=== PATIENT | male | born 1935 | race Caucasian/White ===

== ENCOUNTER → 2020-02-15 10:41 | Outpatient (BNVA) | payer OTHER, SELFPAY | PROVIDERS: Family Provider Family Medicine; Referring Provider Family Medicine; Visit Provider Specialist | DX: M19.012 Primary osteoarthritis, left shoulder (principal); M25.512 Pain in left shoulder | CPT/HCPCS: 73030 ==

== ENCOUNTER 2020-02-27 09:28 | Outpatient (RCR) | payer OTHER, SELFPAY | END 2020-03-09 23:59 | disposition home or self-care (01) | LOC: SPT 09:28 | PROVIDERS: PCP Family Medicine; Visit Provider Family Medicine | DX: M25.512 Pain in left shoulder (principal) | CPT/HCPCS: 97110; 97161 ==

== ENCOUNTER 2020-02-29 07:03 | Outpatient (CLI) | payer OTHER, SELFPAY ==
--- NOTE | 2020-02-29 07:11 | MR_ITS ---
WS: [id number] MRI LEFT SHOULDER NONCONTRAST TECHNIQUE: Sagittal T2, coronal T1, T2 and proton density imaging. Axial gradient PDE imaging. CLINICAL INFORMATION: LEFT SHOULDER PAIN COMPARISON: None. FINDINGS: Advanced degenerative arthritis AC joint with synovial thickening and edema. Loss of the subacromial space. Small subacromial/subdeltoid effusion. Full-thickness supraspinatus tear with retraction of th e tendon to the level of the glenohumeral joint. Edema within the supraspinatus muscle belly. High-gr alex tear involving the anterior infraspinatus. Dorsal fibers infraspinatus appear intact distally. Normal teres minor. Subscapularis tendon appears intact distally. Normal biceps tendon in the bicipit al groove. Physiologic fluid along the biceps tendon sheath. Normal biceps labral anchor. Degenerativ e fraying of the glenoid labrum which appears grossly intact. Moderate subcoracoid effusion. MR/MR shoulder LT wo con* [id number] IMPRESSION: 1. Advanced osteoarthritis of the AC joint with synovial thickening and subacr omial/subdeltoid fluid. 2. Mild downsloping of the acromion with complete loss of the subacromial spac e. 3. Full-thickness tear supraspinatus with retraction to the level of the gleno humeral joint. 4. High-grade tear involving the anterior aspect of the infraspinatus. Posteri or fibers appear intact distally. 5. Normal teres minor and subscapularis tendons 6. Normal biceps tendon in the bicipital groove. 7. Moderate subcoracoid effusion.
== END 2020-02-29 07:04 | disposition home or self-care (01) ==
LOC: RADSHAW 07:04
PROVIDERS: PCP Family Medicine; Visit Provider Family Medicine
DX: M19.012 Primary osteoarthritis, left shoulder (principal); M75.102 Unspecified rotator cuff tear or rupture of left shoulder, not specified as traumatic; M25.412 Effusion, left shoulder
CPT/HCPCS: 73221

== ENCOUNTER 2020-03-22 13:10 | Outpatient (RCR) | payer OTHER, SELFPAY | END 2020-04-08 23:59 | disposition home or self-care (01) | LOC: SPT 13:10 | PROVIDERS: PCP Family Medicine; Visit Provider Family Medicine | DX: M25.512 Pain in left shoulder (principal) | CPT/HCPCS: 97110 ==

== ENCOUNTER 2020-04-09 06:00 | Outpatient (RCR) | payer OTHER, SELFPAY | END 2020-04-29 23:00 | disposition home or self-care (01) | LOC: SPT 06:00 | PROVIDERS: PCP Family Medicine; Visit Provider Family Medicine | DX: M25.512 Pain in left shoulder (principal) | CPT/HCPCS: 97110 ==

== ENCOUNTER 2020-12-04 06:00 | Outpatient (RCR) | payer OTHER, SELFPAY | END 2020-12-07 23:59 | disposition home or self-care (01) | LOC: SPT 06:00 | PROVIDERS: PCP Family Medicine; Referring Provider Family Medicine; Visit Provider Family Medicine | DX: G20 Parkinson's disease (principal); R26.0 Ataxic gait | CPT/HCPCS: 97162 ==

== ENCOUNTER 2020-12-23 14:29 | Outpatient (CLI) | payer OTHER, SELFPAY ==
--- NOTE | 2020-12-23 15:00 | USCV_ITS ---
Jonathan Canales Age: 85 Gender: M : 1935 Exam Date: 12/23/2020 14:58 Ordering Phys: Eneida Parsons MD Technologist: Camilla Sawyer Exam Location: [facility] [place] Indication: vision disturbances, Risk Factors: Previous Vascular Surgery: None Right Brachial BP: / Left Brachial BP: / Right Left Velocity (cm/s) Spectral Plaque Velocity (cm/s) Spectral Plaque Syst/Diast Broadening Syst/Diast Broadening 94.80/ 15.40 Prox CCA 185.00/ 28.10 125.70/22.10 Mid CCA 76.00 / 11.10 88.20/ 16.50 Distal CCA 86.30 / 15.40 Hetro 56.20/ 14.30 Prox ICA 86.00 / 8.80 Hetro 70.60/ 18.70 Mid ICA 67.30 / 18.70 72.80/ 17.60 Distal ICA 70.60 / 19.30 137.80 ECA 88.90 0.58 ICA/CCA 0.46 Antegrade Vertebral Antegrade 40.10/ 12.00 cm/s 34.20/ 10.50 cm/s Tri Subclavian Tri 219.2 136.5 0 0 FINDINGS Mild to moderate dense irregular plaques at the left bifurcation and proximal internal carotid artery. Mild to moderate heterogeneous plaques at the right bifurcation and proximal internal carotid artery Intimal thickening in the common carotid arteries bilaterally. Antegrade flow in the vertebral arteries bilaterally. CONCLUSIONS Mild to moderate dense irregular plaques at the left bifurcation and proximal internal carotid artery with the Doppler features, suggesting less than 50% stenosis. Mild to moderate heterogeneous plaques at the right bifurcation and proximal internal carotid artery with the Doppler features, suggesting less than 50% stenosis. No similar previous studies are available for comparison Dr Daron Onofre MD [facility] (Electronically Signed) Final Date: 24 December 2020 18:10 S
== END 2020-12-23 14:30 | disposition home or self-care (01) ==
PROVIDERS: PCP Family Medicine; Visit Provider Family Medicine
DX: H53.9 Unspecified visual disturbance (principal); I65.23 Occlusion and stenosis of bilateral carotid arteries
CPT/HCPCS: 93880

== ENCOUNTER → 2021-01-15 09:25 | Outpatient (BNVA) | payer OTHER, SELFPAY | PROVIDERS: PCP Family Medicine; Referring Provider Internal Medicine Cardiovascular Disease; Visit Provider Internal Medicine Cardiovascular Disease | DX: R94.39 Abnormal result of other cardiovascular function study (principal); Z01.818 Encounter for other preprocedural examination; I25.9 Chronic ischemic heart disease, unspecified; I77.9 Disorder of arteries and arterioles, unspecified; Z20.822 Contact with and (suspected) exposure to COVID-19 | CPT/HCPCS: 80048; 85025; 85610; 87635 ==

== ENCOUNTER 2021-01-27 07:09 | Inpatient (IN) | payer OTHER, MEDICARE, SELFPAY ==
[2021-01-21] VITALS (18 sets, daily range): BP systolic 104–161; BP diastolic 55–126; PULSE 58–87; RESP 12–20; TEMP 36.5–36.6; O2SAT 92–97; BMI 24.7
[2021-01-21] MEDS: diphenhydrAMINE 50 mg Capsule PO (09:00)
--- NOTE | 2021-01-21 09:00 | XACV_ITS ---
Exam Room: 1 Ht: 175 cm Wt: 76 kg BSA: 1.93 m2 Gender: Male : 1935 Any Known Allergies: Latex Exam Priority: Routine Procedure(s): Procedure Description: Diagnostic procedure Procedure Description: Left Heart Catheterization Procedure Description: Left ventriculography Procedure Description: Coronary Angiography Diagnostic Cath Status: Elective Diagnostic Findings * Left Main: critical 95% stenosis, ISABELL: 3 flow. * Distal Left Anterior Descending: severe 90% stenosis, ISABELL: 3 flow. * Distal Left Anterior Descending: moderate 50% stenosis, ISABELL: 3 flow. * Distal Left Anterior Descending: moderate 50% stenosis, ISABELL: 3 flow. * Mid Right Coronary Artery: medium aneurysm. * Coronary angiography shows right dominance. Conclusions 1. Left main has distal hazy 90 to 95% stenosis which is eccentric. LAD has mid high-grade 90% stenosis, left circumflex does not have any significant stenosis, RCA had mid aneurysmal dilatation otherwise no significant stenosis.No Gradient across the Aortic Valve noted.. 2. There is critical coronary artery disease with two vessel disease. 3. The mid septum, apical septum, anterolateral reyna are hypokinetic. 4. The apex in the SPRING view is hypokinetic. 5. All other visualized reyna normal. 6. Normal left ventricular systolic function. Ejection fraction of 55%. Recommendations * 1-Return to [facility] for close monitoring 2-Usual Post cath care3-Statin with LDL goal of 70 mg/dl, aspirin 81 mg p.o. daily for life long 4-CT surgery consults for CABG5-Optimal medical management for MI6-Follow up with Dr. Austin in four weeks and establish care with primary care physician. Interventional RX Recommendation: none Diagnostic RX Recommendation: CABG LV EDP: 24 mmHg Ventriculography Ejection Fraction: 55.0 % Left Ventriculography Findings: * Normal left ventricle ejection fraction with mildly hypokinetic mid to distal and apical left ventricle wall. Pressures Phase:Rest AO : 131 / 70 ( 93 ) @ 10:09:00 AM 106 / 65 ( 87 ) @ 10:12:00 AM 112 / 74 ( 94 ) @ 10:14:00 AM 143 / 47 ( 86 ) @ 10:22:00 AM 142 / 73 ( 101 ) @ 10:23:00 AM LV : 155 / 3 / 24 @ 10:20:00 AM 149 / -1 / 22 @ 10:21:00 AM Clinical Evaluation EBL: 5mL-10mL Procedural Details Procedure Consent Obtained. Current Diagnosis : Chest Pain. Pre-Procedure Time Out. Identified patient by full name and date of as verbalized by the patient/guarantor. Does the consent match the physician's order: Yes. Accurate & Complete Informed Consent: Yes. Inpatient/Outpatient History & Physical on Chart: Yes. If H&P is completed, is and addenduem needed: No; If yes, is the addendum complete: N/A. Visualize and Verify Site with Patient/Guarantor: N/A. Relevant Radiology Images available: Yes. Pre-op teaching completed and patient verbalized understanding. The risks, benefits, and alternatives of sedation and/or procedure were discussed by physician. The patient agrees to continue. Procedure started. [facility] Clinical Fraility Score: 3: Managing Well. Regulatory Affairs Specialist Indications: Worsening Angina. Chest Pain Symptom Assessment: Typical Angina Symptoms. Correct patient, site and procedure confirmed by cath team. Current diagnosis: Chest Pain. PERRLA. Strong, equal hand bellows filler bilaterally. Lungs clear x 5 lobes. IV Site on Arrival: 20 gauge in the left anticubital. IV Fluids: 0.9% NaCl at KVO. 0 mL infused prior to cardiac cath lab manager. Pre Procedural Pulses: bilateral dorsalis pedis was 2+. Pre Procedural Pulses: left posterior tibial was Doppled. Pre Procedural Pulses: right posterior tibial was 1+. Pre Procedural Pulses: bilateral radial was 3+. Oxygen started at 2liters/min via nasal canula. right groin was prepped with chloroprep then draped in the usual sterile fashion. right radial was prepped with chloroprep then draped in the usual sterile fashion. Physician notified. Baseline sample Acquired. HR: 0 BPM. Physician arrived. Physician scrubbed in. Immediate Pre-Procedure Time Out. Correct Patient: Yes; Correct Procedure: Yes; Correct Site: Yes; Correct Patient Position: Yes; Correct Supplies: Yes; Dried Flammable Prep: Yes; Blood Products Available: N/A;. Lidocaine 1% infiltrated to the right radial. Arterial access obtained. A 5 comoran TIG catheter in over wire. Multiple views taken of left coronary artery. Catheter redirected to the RCA. Multiple views taken of right coronary artery. Dr. Monet called to review films. Catheter removed over the exchange wire. A 5 comoran Angled Pig catheter in over wire. EDP Sample taken: LV 155/3,24; HR: 67 BPM; SpO2: 96%. LV gram performed in SPRING @ 10 mL/second for a total of 30 mL. EDP Sample taken: LV 149/-2,22; HR: 73 BPM; SpO2: 97%. Pullback taken: LV Off; AO Off; Mean: , Peak to Peak: , SEP: ; HR: 74 BPM; SpO2: 96%. Catheter removed over the exchange wire. Physician scrubbed out. TR band placed. Hemostasis obtained. A TR Band was successful obtaining hemostatsis at the Right Radial artery insertion site. Post Procedure: Pulses reassessed and unchanged. PERRLA. Strong, equal hand bellows filler bilaterally. No VTE prophylaxis required. Post-op diagnosis: CAD. Complications: None. Estimated blood loss: 5mL-10mL. Procedure completed. Patient transferred by wheelchair to CPRU. Medication's Wasted: Lidocaine 1% = 18 mL. Medication's Wasted: Heparin = 1000 units. Medication's Wasted: Nitro = 49.8 mcg. Medication's Wasted: Other = Versed 1 mg. Medication's Wasted: Other = Fentanyl 50 mg. Total IV fluids: 47 mL. Contrast type used: Omnipaque 300 mg/mL, 150 mL bottle. Vital chart was stopped. Access Site Site: Right Radial artery Sheath Size: 6 Fr Hemostasis Method: TR Band Hemostasis Success: Successful Procedure Medications Start: 10:59 AM Stop: 10:59 AM Medication: Versed Amount: 1 mg Route: I.V. Start: 10:59 AM Stop: 10:59 AM Medication: Fentanyl Amount: 50 mcg Route: I.V. Start: 11:05 AM Stop: 11:05 AM Medication: Nitrogylcerin Amount: 200 mcg Route: I.A. Start: 11:09 AM Stop: 11:09 AM Medication: Heparin Amount: 5000 units Route: I.V. I, the attending physician, have reviewed and verified all procedure medications. Yes, all medications given per verbal order History/Risk Factors Hypertension: Yes Dyslipidemia: Yes Peripheral Arterial Disease (PAD): No Obesity: No Renal Disease: No Tobacco Use: Never Prior Interventions PCI: No CABG: No Valve Surgery: No Report Signatures Finalized by Lazaro Austin MD on 01/21/2021 12:10 PM
--- NOTE | 2021-01-21 10:44 | W.PM.OPSUD ---
Surgery/Procedure H&P Update DATE OF PROCEDURE: January 21, 2021 DATE H&P PERFORMED: 12/26/20 H&P UPDATE INFORMATION: I have reviewed H&P completed within last 30 days, I have examined patient prior to procedure and No changes to prior documentation PREOP DIAGNOSIS: Abnormal stress test worsening of chest pain PLANNED PROCEDURE: Operation Date: 01/21/21 10:00 Proposed Procedures p Cardiac Catheterization(Left) - Lazaro Austin MD PATIENT REASSESSED PRIOR TO SEDATION, WITH NO CHANGE NOTED: Yes PHYSICAL EXAM: alert, oriented x 3 and clear to auscultation bilaterally AIRWAY EVAL/ANESTHESIA PLAN: ASA II and Risks, benefits & alternatives of sedation and/or procedure discussed ADDITIONAL INFORMATION: All the risk benefit and alternative for the procedure including urgent emergent bypass stroke contrast-induced nephropathy hematoma cardiac tamponade were discussed with the patient. Patient would like to proceed with it. He is a candidate for DAPT
--- NOTE | 2021-01-21 11:54 | USCV_ITS ---
Jonathan Canales Age: 85 Gender: M : 1935 Exam Date: 01/21/2021 13:40 Ordering Phys: Lazaro Austin MD ([email or web address]) Technologist: Kitty Goode Exam Location: [facility] – [place] Indication: CAD BP: 136 / 73 HR: 60 Rhythm: Other Technical Quality: Adequate MEASUREMENTS (Male / Female) Normal Values 2D ECHO LV Diastolic Diameter PLAX 4.3 cm 4.2 - 5.9 / 3.9 - 5.3 cm LV Systolic Diameter PLAX 2.3 cm IVS Diastolic Thickness 1.5 cm 0.6 - 1.0 / 0.6 - 0.9 cm IVS Systolic Thickness 2.7 cm LVPW Diastolic Thickness 1.8 cm 0.6 - 1.0 / 0.6 - 0.9 cm LVPW Systolic Thickness 2.3 cm LVOT Diameter 2.0 cm LV Ejection Fraction 2D Teich 79.0 % LV Ejection Fraction MOD 2C 62.5 % LV Ejection Fraction 2C AL 62.5 % LA Diameter 3.1 cm LA Width 2.9 cm LA Height 4.0 cm RA Width 3.3 cm RA Height 4.6 cm Aorta at Sinotubular Diameter 2.8 cm M-MODE Aortic Annulus Diameter 3.0 cm LA Ao Ratio MM 1.0 MV E Point Septal Separation 1.4 cm DOPPLER AV Peak Velocity 99.0 cm/s LVOT Peak Velocity 69.0 cm/s AV Area Cont Eq vti 2.0 cm squared AV Area Cont Eq pk 2.2 cm squared MV Peak Velocity 130.0 cm/s MV Area PHT 5.0 cm squared Mitral E to A Ratio 0.4 MV E' Velocity 25.0 cm/s Mitral E to MV E' Ratio 8.9 Mitral E to LV E' Lateral Ratio 10.1 Mitral E to LV E' Septal Ratio 8.1 TR Peak Velocity 162.2 cm/s TR Peak Gradient 10.5 mmHg TR Mean Velocity 144.9 cm/s TR Mean Gradient 8.4 mmHg TR Velocity Time Integral 48.9 cm TV Peak E Velocity 29.0 cm/s Right Atrial Pressure 3.0 mmHg Pulmonary Artery Systolic Pressu 13.5 mmHg PV Peak Velocity 85.0 cm/s RV Acceleration Time 0.1 s RV Ejection Time 0.3 s RV AcT/ET 0.3 FINDINGS Left Ventricle Normal left ventricular cavity size. Normal left ventricular systolic function. No regional wall motion abnormalities. Left ventricular ejection fraction is estimated at 60 %. Grade I/IV diastolic dysfunction (abnormal relaxation filling pattern), normal to mildly elevated filling pressures. Right Ventricle The right ventricle is normal in size and function. Right Atrium The right atrium is normal in size. Left Atrium The left atrium is normal in size. Mitral Valve Mildly thickened mitral valve. No mitral valve stenosis. Mild mitral valve regurgitation. Aortic Valve Moderate aortic valve calcification. Aortic valve stenosis. Trace aortic valve regurgitation. Tricuspid Valve Trace tricuspid valve regurgitation. Pulmonic Valve Structurally normal pulmonic valve without significant stenosis. There is no pulmonic regurgitation. Pericardium Normal pericardium without effusion. Aorta Normal ascending aorta dimension. CONCLUSIONS 1-Normal left ventricular cavity size. Normal left ventricular systolic function. No regional wall motion abnormalities. Left ventricular ejection fraction is estimated at 60 %. Grade I/IV diastolic dysfunction (abnormal relaxation filling pattern), normal to mildly elevated filling pressures. 2-Mildly thickened mitral valve. No mitral valve stenosis. Mild mitral valve regurgitation. 3-Trace tricuspid valve regurgitation. 4-There is no pericardial effusion. 5-Pulmonary artery systolic pressure is within normal limits. 6-Right atrial pressure is around 5 mm of mercury. 7-There are no prior echocardiogram studies to compare. Lazaro Austin MD (Electronically Signed) Final Date: 21 January 2021 19:44 S
[2021-01-21] MEDS: isosorbide mononitrate ER 30 mg Tablet PO (15:38)
[2021-01-21] MEDS: docusate sodium 100 mg Capsule PO (15:38)
[2021-01-21] MEDS: aspirin 81 mg Chew Tablet PO (15:38)
[2021-01-21] MEDS: atorvastatin 40 mg Tablet 20 MG PO (20:05)
[2021-01-21] MEDS: trazodone 50 mg Tablet PO (20:05)
[2021-01-21] MEDS: carbidopa-levodopa 25-100mg Tablet 1 EACH PO (20:05)
[2021-01-21] MEDS: enoxaparin 40 mg/0.4 mL Syringe SUBCUT (21:24)
[2021-01-22] VITALS (56 sets, daily range): BP systolic 104–148; BP diastolic 55–79; PULSE 55–87; RESP 9–25; TEMP 36.6–36.8; O2SAT 93–97
[2021-01-22] MEDS: carbidopa-levodopa 25-100mg Tablet 2 EACH PO ×2 (04:15→13:18)
[2021-01-22 05:02] LABS: Basophils # 0.1 10^3/uL (0.0-0.1); Basophils % 0.8 %; Eosinophils # 0.2 10^3/uL (0.0-0.8); Eosinophils % 2.4 %; Hematocrit 39.8 % (42.0-52.0); Hemoglobin 13.4 g/dL (11.7-16.6); Lymphocytes # 1.4 10^3/uL (0.8-4.8); Lymphocytes % 18.2 %; Mean Corpuscular HGB Conc 33.7 g/dL (30.0-36.0); Mean Corpuscular Hemoglobin 32.2 pg (28.0-34.0); Mean Corpuscular Volume 95.7 fl (80-94); Mean Platelet Volume 10.5 fL (7.4-10.4); Monocytes # 0.7 10^3/uL (0.2-0.9); Monocytes % 9.3 %; Neutrophils # 5.13 10^3/uL (1.8-7.7); Neutrophils % 69.2 %; Nucleated Red Blood Cells % 0 %; Platelet Count 160 10^3/cmm (130-400); Red Blood Count 4.16 10^6/uL (4.1-5.3); Red Cell Distribution Width 12.1 % (12.1-15.1); White Blood Count 7.4 10^3/uL (4.0-10.0)
[2021-01-22 05:23] LABS: Anion Gap 15.2 (5-19); Blood Urea Nitrogen 23 mg/dL (8-23); Calcium 8.9 mg/dL (8.5-10.5); Carbon Dioxide 25 mmol/L (22-29); Chloride 103 mmol/L (98-107); Glucose 83 mg/dL (65-115); Osmolality Calculated 291 mOsm/kg (285-295); Potassium 4.2 mmol/L (3.5-5.1); Sodium 139 mmol/L (136-145)
--- NOTE | 2021-01-22 06:18 | PM.CONSULT ---
Providers/Reason For Consult Consulting Physician/Specialty*: Dr. Monet/cardiothoracic surgery Reason for Consult*: Left main coronary artery stenosis Requesting Physician: Dr. Austin Attending Physician: Lazaro Austin MD Primary Care Provider: Eneida Parsons MD History of Present Illness History of Present Illness Jonathan Canales is an 85 year old gentleman who underwent left heart catheterization yesterday as part of an evaluation for suspected coronary artery disease. He gives a 3-month history of right-sided and precordial chest discomfort with exertion which resolves with rest. He had noted this initially while performing yard work. He has denied pain at rest. He had a stress test performed at [facility] which was reported as abnormal. He saw Dr. Fierro on December 26 and after review of data and examination, I was concerned of coronary ischemia and recommended left heart catheterization. This was performed yesterday by Dr. Austin. This reveals a 90% mid left main stenosis as well as 90% stenosis of the mid LAD. 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 He has preserved LV function with noted diastolic dysfunction on echocardiogram. He had no difficulties with a left heart catheterization and currently is resting comfortably in the cardiac stepdown unit. I was consulted by Dr. Austin for surgical opinion concerning the results of his cardiac catheterization. Mr. Canales resides in [place] with his and daughter. Family history includes coronary artery disease in his daughter with prior coronary stenting. She also has diabetes mellitus. Reports allergies to penicillin and latex. Review of Systems Narrative: Left shoulder rotator cuff tear, evaluated by Dr. Hoyt. Currently receiving conservative management. Right knee surgery 50 years ago with intermittent pain. Const: Denies: fever(s), chills, change in appetite, change in weight, fatigue or night sweats Eyes: Denies: change in vision or blurry vision ENMT: Denies: odynophagia or hoarseness Card: Reports: chest pain (For approximately 3 to 4 months) and dyspnea on exertion; Denies: palpitations, irregular heart rhythm, edema, swelling of feet/ankles, syncope, orthopnea or leg pain with exertion Resp: Denies: dyspnea or productive cough GI: Denies: abdominal pain, nausea, vomiting, dysphagia, heartburn or change in bowel habits : Denies: difficulty urinating, dysuria, urinary frequency, urinary urgency or urinary hesitancy Musc: Reports: neck pain, extremity pain, joint pain, limited range of motion and other (Left shoulder rotator cuff tear currently with conservative treatment. ) Skin/Breast: Denies: rash Neuro: Denies: headache(s), numbness in extremities, weakness in extremities or sensory changes Psych: Denies: anxiety, depression or change in appetite Endo: Denies: polyuria, polydipsia or cold intolerance Daquan/Lymph: Denies: easy bruising, easy bleeding, petechiae or enlarged lymph nodes Meds/Allergies Home Medications and Allergies Home Medications Medication Instructions Recorded Confirmed Last Taken Type aspirin 81 mg chewable tablet 81 mg PO DAILY 02/15/20 01/20/21 01/20/21 05:00 History cholecalciferol (vitamin D3) 25 25 mcg PO DAILY 02/15/20 01/20/21 01/20/21 05:00 History mcg (1,000 unit) capsule trazodone 50 mg tablet 50 mg PO DAILY 02/15/20 01/20/21 01/20/21 20:00 History amlodipine 5 mg tablet 10 mg PO DAILY tab 12/26/20 01/20/21 01/21/21 06:00 History atorvastatin 10 mg tablet 10 mg PO DAILY #30 tab 12/26/20 01/20/21 01/20/21 05:00 Rx carbidopa 25 mg-levodopa 100 mg 1 tab PO .COMPLEX 12/26/20 01/20/21 01/21/21 06:00 History tablet docusate sodium 100 mg capsule 100 mg PO DAILY 12/26/20 01/20/21 01/20/21 05:00 History isosorbide mononitrate 30 mg 30 mg PO DAILY #30 tab 12/26/20 01/20/21 01/19/21 10:00 Rx tablet,extended release 24 hr [id number] acid 0.4 1 tab PO DAILY 12/26/20 01/20/21 01/20/21 05:00 History mg-lycopene 300 mcg-lutein 250 mcg tablet nitroglycerin 0.4 mg sublingual 0.4 mg SUBLINGUAL Q5M PRN #30 tab 12/26/20 01/20/21 Unknown Rx tablet Allergies Allergy/AdvReac Type Severity Reaction Status Date / Time latex Allergy Unknown unknown Verified 01/20/21 14:07 Penicillins Allergy Unknown unknown Verified 01/20/21 14:07 Current Medications Current Medications Generic Name Dose Route Start Last Admin Trade Name Nita PRN Reason Stop Dose Admin Aspirin 81 mg 01/21/21 14:00 01/21/21 15:38 Aspirin 81 Mg Chew Tablet PO 81 mg DAILY BENNIE Administration Atorvastatin Calcium 20 mg 01/21/21 21:00 01/21/21 20:05 Atorvastatin 40 Mg Tablet PO 20 mg BEDTIME BENNIE Administration Carbidopa/Levodopa 2 each 01/22/21 06:00 01/22/21 04:15 Carbidopa-Levodopa 25-100mg Tablet PO 2 each QAM BENNIE Administration Carbidopa/Levodopa 1 each 01/21/21 21:00 01/21/21 20:05 Carbidopa-Levodopa 25-100mg Tablet PO 1 each BEDTIME BENNIE Administration Docusate Sodium 100 mg 01/21/21 14:00 01/21/21 15:38 Docusate Sodium 100 Mg Capsule PO 100 mg DAILY BENNIE Administration Enoxaparin Sodium 40 mg 01/21/21 21:30 01/21/21 21:24 Enoxaparin 40 Mg/0.4 Ml Syringe SUBCUT 40 mg ONCE BENNIE Administration Isosorbide Mononitrate 30 mg 01/21/21 14:00 01/21/21 15:38 Isosorbide Mononitrate Er 30 Mg Tablet PO 30 mg DAILY BENNIE Administration Trazodone HCl 50 mg 01/21/21 21:00 01/21/21 20:05 Trazodone 50 Mg Tablet PO 50 mg BEDTIME BENNIE Administration PFSH Acute PFSH: Medical History Carotid artery disease Dyslipidemia Hypertension Parkinsons Surgical History History of hernia surgery History of knee surgery History of surgery on wrist Social History Smoking and tobacco status: never smoked Household members: spouse and children Marital status: Vitals/I&O/Wt Last Vital Signs Temp 97.7 F 01/21/21 23:47 Pulse 63 01/22/21 04:00 Resp 17 01/22/21 04:00 BP 124/79 01/22/21 04:00 Pulse Ox 94 01/22/21 04:00 01/21/21 01/21/21 01/22/21 14:59 22:59 06:59 Intake Total 400 / 400 Output Total 650 / 650 200 / 850 Balance -650 / -650 200 / -450 Weight last 48 hrs Weight 168 lb Weight 168 lb Physical Exam Const: COMMON NORMALS: patient oriented x3 and alert ORIENTATION/CONSCIOUSNESS: Yes oriented to person, Yes oriented to place and Yes oriented to time HENMT: COMMON NORMALS: normocephalic HEAD & SCALP: normocephalic Neck/C-Spine: COMMON NORMALS: full ROM, supple, no JVD and No carotid bruits GENERAL: Yes trachea midline CERVICAL SPINE: Yes cervical ROM normal Chest: COMMONS NORMALS: normal inspection of the chest and normal palpation of entire chest wall Resp: COMMON NORMALS: normal respiratory effort, No use of accessory muscles, clear to auscultation bilaterally and percussion normal EFFORT & INSPECTION: Yes able to speak in complete sentences and Yes symmetric chest movement AUSCULTATION: clear to auscultation bilaterally PERCUSSION: percussion normal Cardio: COMMON NORMALS: no JVD, regular rate, regular rhythm, S1 normal heart sound present, S2 normal heart sound present, No gallops present (Cardio), No murmurs present (Cardio) and No rub (Cardio) JUGULAR VENOUS DISTENTION: no JVD RATE: regular rate RHYTHM: regular rhythm HEART SOUNDS: S1 normal heart sound present and S2 normal heart sound present PERIPHERAL PULSES: radial pulses present positive bilateral 2+ Extremity: COMMON NORMALS: no clubbing, cyanosis or edema Neuro: COMMON NORMALS: patient oriented x3, no focal motor deficits and no sensory deficits noted SENSORIUM/ORIENTATION: Yes alert, Yes oriented to person, Yes oriented to place and Yes oriented to time GAIT: Yes Normal gait present Psych: COMMON NORMALS: mental status grossly normal, Normal thought process present and cooperative THOUGHT PROCESS: Normal thought process present A&P Assessment and plan (1) Stenosis of left main coronary artery: 85-year-old gentleman status post left heart catheterization yesterday by Dr. Austin for high index of suspicion for coronary artery disease with positive stress testing performed in [place], [place]. Left heart catheterization revealed 90% left main stenosis and 90% mid LAD lesion. Preserved LV systolic function with diastolic dysfunction. I have reviewed with Mr. Canales this morning the findings of his left heart catheterization and utilized our written patient teaching materials to discuss his anatomy and consideration for revascularization: Surgery versus interventional therapies. He appears to have a good understanding of his disease process and our recommendations for consideration. At his request, I will be returning around 12 noon to discuss further with him along with his and daughter who should be present at that time. Currently he is resting comfortably and remains pain-free. I will discuss further with him and his family at midday. I will keep a close contact with Dr. Austin as we proceed. Status: Acute Consult Attestations Medical Necessity Statement: Coronary artery disease with left main coronary artery stenosis. Time Spent in Patient Care: Greater than 35 minutes Coding Level of Care Code Acute [employer] for Maria M Bonilla Diagnoses Stenosis of left main coronary artery I25.10
--- NOTE | 2021-01-22 06:29 | PC.NURSE ---
Shift Note Frequent safety and comfort rounds continue. Orders and/or nursing care completed as indicated. Patient monitored for response to intervention and treatment(s). Will continue to monitor.
[2021-01-22] MEDS: cholecalciferol (vitamin D3) 1,000 unit Tablet 1000 UNIT PO (09:17)
[2021-01-22] MEDS: aspirin 81 mg Chew Tablet PO (09:17)
[2021-01-22] MEDS: amlodipine 10 mg Tablet PO (09:17)
[2021-01-22] MEDS: enoxaparin 40 mg/0.4 mL Syringe SUBCUT ×2 (09:17→18:14)
[2021-01-22] MEDS: isosorbide mononitrate ER 30 mg Tablet PO (09:17)
[2021-01-22] MEDS: docusate sodium 100 mg Capsule PO (09:17)
--- NOTE | 2021-01-22 09:17 | PC.CHAP ---
Pastoral Care Encounter/Spiritual Assessment Type of Contact [] Declined tray casting machine operator visit [] Patient/Family/Request visit [] Outpatient visit [] Follow-up visit [] Physician referral [] Code/Alert [x] Routine visit [] Staff referral [] Actively dying [] Patient sleeping [] Family support [] [] Out of room [] Palliative care [] [] Receiving care in room [] Pre-surgical visit [] Trauma [] Long length of stay [] ICU visit [] Other: Relational/Emotional Strength [] Patient feels connected with others/family/visitors/staff [] Distress [] Loneliness/isolation [] Abandonment Spirituality of Patient [] Person of Christel [] Attends Spiritism of their Christel [] Believes in Prayer [] Reads Bible or Congregational materials [] There are Spiritual issues to be addressed Produce Weigher Interventions [x] Prayer [x] Active listening [x] Non-anxious presence [x] Spiritual/emotional support [] Crisis/trauma care [] Spiritual counseling [] Bereavement support [] Provided bereavement packet [] Provided Bible/devotional materials [] Provided toy/stuffed animal, coloring book to patient or family member [] Provided Communion [] Anointing/[place] [] Salvation [x] Completed spiritual assessment [] Other: Impact on Illness or Injury [] Angry [] Fearful [] Anxious [] Often cries [] Exhaustion [] Unable to work [] Unable to attend latter day [] Unable to walk/stand [] Unable to read [] Unable to drive [] Unable to eat/drink [] Unable to sleep [] Unable to be with family [] Patient intubated [] Other: Summary patient feeling better today... but cold.. advised nurse to address room temp... Time spent with patient 10 min
--- NOTE | 2021-01-22 11:09 | P.HP_ITS ---
Providers/Chief Complaint Primary Care Provider: Eneida Parsons MD Chief Complaint: [id number] History of Present Illness Jonathan Canales is a 85 year old male past medical history significant for hypertension hyperlipidemia parkinsonism for worsening of chest pain shortness of breath and abnormal stress test underwent left heart cath he was noted to have significant distal left main disease along with distal LAD disease. Coronary artery bypass surgery was recommended. Today he was visited by Dr. Monet. Dr. Monet will be leaving out of town for a meeting which was already scheduled for tomorrow morning. Dr. Monet has indicated that upon his return early next week perhaps on Wednesday he may can be scheduled for coronary artery bypass surgery. I had detailed discussion with the patient and his by bedside. Patient would like to perform surgery here while his is ambivalent as she think that it may need to be done earlier. I have given patient options to be transferred to the other hospitals such as [facility] or wherever he chooses to go. He would like to think about it and will let us know. Review of Systems Narrative: Left shoulder rotator cuff tear, evaluated by Dr. Hoyt. Currently receiving conservative management. Right knee surgery 50 years ago with intermittent pain. Const: Denies: fever(s), chills, change in appetite, change in weight, fatigue or night sweats Eyes: Denies: change in vision or blurry vision ENMT: Denies: odynophagia or hoarseness Card: Reports: chest pain (For approximately 3 to 4 months) and dyspnea on exertion; Denies: palpitations, irregular heart rhythm, edema, swelling of feet/ankles, syncope, orthopnea or leg pain with exertion Resp: Denies: dyspnea or productive cough GI: Denies: abdominal pain, nausea, vomiting, dysphagia, heartburn or change in bowel habits : Denies: difficulty urinating, dysuria, urinary frequency, urinary urgency or urinary hesitancy Musc: Reports: neck pain, extremity pain, joint pain, limited range of motion and other (Left shoulder rotator cuff tear currently with conservative treatment. ) Skin/Breast: Denies: rash Neuro: Denies: headache(s), numbness in extremities, weakness in extremities or sensory changes Psych: Denies: anxiety, depression or change in appetite Endo: Denies: polyuria, polydipsia or cold intolerance Daquan/Lymph: Denies: easy bruising, easy bleeding, petechiae or enlarged lymph nodes Medications/Allergies Home Medications Medication Instructions Recorded Confirmed Last Taken Type aspirin 81 mg chewable tablet 81 mg PO DAILY 02/15/20 01/20/21 01/20/21 05:00 History cholecalciferol (vitamin D3) 25 25 mcg PO DAILY 02/15/20 01/20/21 01/20/21 05:00 History mcg (1,000 unit) capsule trazodone 50 mg tablet 50 mg PO DAILY 02/15/20 01/20/21 01/20/21 20:00 History amlodipine 5 mg tablet 10 mg PO DAILY tab 12/26/20 01/20/21 01/21/21 06:00 History atorvastatin 10 mg tablet 10 mg PO DAILY #30 tab 12/26/20 01/20/21 01/20/21 05:00 Rx carbidopa 25 mg-levodopa 100 mg 1 tab PO .COMPLEX 12/26/20 01/20/21 01/21/21 06:00 History tablet docusate sodium 100 mg capsule 100 mg PO DAILY 12/26/20 01/20/21 01/20/21 05:00 History isosorbide mononitrate 30 mg 30 mg PO DAILY #30 tab 12/26/20 01/20/21 01/19/21 10:00 Rx tablet,extended release 24 hr htfpqtni-ldk-ezcyp acid 0.4 1 tab PO DAILY 12/26/20 01/20/21 01/20/21 05:00 History mg-lycopene 300 mcg-lutein 250 mcg tablet nitroglycerin 0.4 mg sublingual 0.4 mg SUBLINGUAL Q5M PRN #30 tab 12/26/20 01/20/21 Unknown Rx tablet Allergies Allergy/AdvReac Type Severity Reaction Status Date / Time latex Allergy Unknown unknown Verified 01/20/21 14:07 Penicillins Allergy Unknown unknown Verified 01/20/21 14:07 PFSH Acute PFSH: Medical History Carotid artery disease Dyslipidemia Hypertension Parkinsons Surgical History History of hernia surgery History of knee surgery History of surgery on wrist Social History Smoking and tobacco status: never smoked Household members: spouse and children Marital status: Vitals/I&O/Wt Last Vital Signs Temp 97.8 F 01/22/21 08:00 Pulse 68 01/22/21 08:00 Resp 18 01/22/21 08:00 BP 145/73 01/22/21 08:00 Pulse Ox 93 01/22/21 08:00 01/21/21 01/22/21 01/22/21 22:59 06:59 14:59 Intake Total 400 / 400 Output Total 650 / 650 375 / 1025 Balance -650 / -650 25 / -625 Weight last 48 hrs Weight 168 lb Weight 168 lb Physical Exam Narrative: EXAM NARRATIVE: GENERAL: Patient is alert, awake and oriented x3. NECK: No jugular vein distension. HEENT: No cyanosis. No icterus. No pallor. HEART: Regular S1 and S2. No murmur, rub or gallop. LUNGS: Clear to auscultate bilaterally. ABDOMEN: Soft, nontender and nondistended. Positive bowel sounds. No guarding, rebound or tenderness. CENTRAL NERVOUS SYSTEM: Grossly nonfocal. EXTREMITIES: Lower extremities without edema bilaterally. Const: COMMON NORMALS: alert Resp: COMMON NORMALS: clear to auscultation bilaterally AUSCULTATION: clear to auscultation bilaterally Neuro: SENSORIUM/ORIENTATION: Yes alert Data : 01/22/21 04:22 01/22/21 04:22 A&P Assessment and plan (1) Stenosis of left main coronary artery: As above patient has significant left main stenosis and distal LAD significant stenosis requiring CABG. Continue current medical management. Patient and family will make decision today regarding CABG to be performed here or outside. We will go according to their wishes. At the moment he is stable. Continue current regimen Status: Acute (2) Dyslipidemia: Continue statin. Status: Acute (3) Hypertension: Well-controlled continue current regimen Status: Acute Qualifiers: Hypertension type: essential hypertension Qualified Code(s): I10 - Essential (primary) hypertension Attestations Medical Necessity Statement*: Patient require continuation hospitalization for above defined care. Coding Level of Care Code New Pt Acute Marine Tower Operator for [facility] Fwd Patient Type New History Detailed Exam Detailed Medical Decision Making Moderate Complexity Diagnoses Stenosis of left main coronary artery I25.10 Dyslipidemia E78.5 Hypertension I10 Hypertension type: essential hypertension
--- NOTE | 2021-01-22 17:37 | P.PN_ITS ---
Subjective Subjective: Interval history: I spoke with Mr. Canales and his at noon concerning the findings of his left heart catheterization and the recommendation to consider revascularization related to his high-grade left main coronary artery stenosis. I also informed him that I would be off of service for the next 2 days and not available until Wednesday. It is my understanding that he has met with Dr. Austin and wishes to stay locally for revascularization surgically next January 27. I have conferred personally with my colleague Dr. Austin. I stated my apologies for the needed delay in my absence and completely concur if it is felt prudent Mr. Canales seek surgical care elsewhere. It is understanding for Mr. Canales and his that they wish to remain locally if possible. Vitals/I&O/Wt Last Vital Signs Temp 98.3 F 01/22/21 16:00 Pulse 66 01/22/21 16:00 Resp 18 01/22/21 16:00 BP 117/55 01/22/21 16:00 Pulse Ox 96 01/22/21 16:00 01/22/21 01/22/21 01/22/21 06:59 14:59 22:59 Intake Total 400 / 400 Output Total 375 / 1025 Balance 25 / -625 Weight last 48 hrs Weight 168 lb Weight 168 lb Physical Exam Resp: COMMON NORMALS: normal respiratory effort, No use of accessory muscles, clear to auscultation bilaterally and percussion normal AUSCULTATION: clear to auscultation bilaterally PERCUSSION: percussion normal Cardio: COMMON NORMALS: regular rate, regular rhythm and S1 normal heart sound present JUGULAR VENOUS DISTENTION: no JVD RATE: regular rate RHYTHM: regular rhythm HEART SOUNDS: S1 normal heart sound present Extremity: COMMON NORMALS: no clubbing, cyanosis or edema Data : 01/22/21 04:22 01/22/21 04:22 A&P Assessment and plan (1) Stenosis of left main coronary artery: At the request of Mr. Canales, and the condition they remain stable without chest pain, we will proceed with preoperative evaluation in preparation for planned CABG on January 27. Details and risks of CABG were carefully and frankly reviewed. Risks discussed include the possibility of , stroke, heart attack, major bleeding possibly requiring the need to reopen chest, infection, pneumonia, organ failure, failure to benefit, early closure of the bypass grafts, inability to complete the procedure, prolonged hospitalization, blood clots to lungs or other organs, need for further interventions, continued pain after surgery, need for future guanako leonides, and possible long-term bleeding risk secondary to medication requirements. All questions were answered. Mr. Canales and his stated understanding. I greatly appreciate Dr. Austin's director counseling bureau and will keep in close contact with him. Status: Acute Attestations Medical Necessity Statement*: High-grade left main and mid LAD coronary artery stenosis Time Spent in Patient Care: 16 - 35 minutes Coding Level of Care Code Acute Sr. Logistics Analyst for [facility] Fwd Diagnoses Stenosis of left main coronary artery I25.10
[2021-01-22] MEDS: mupirocin oint 22 gm 1 APPLIC NASAL (18:12)
--- NOTE | 2021-01-22 19:46 | PC.NURSE ---
PER VERBAL ORDER FROM DR. MENDOZA, ALL LABS ARE TO BE DONE 01/26/21 PRIOR TO CABG SURGERY ON 01/27/21. HOLD LOVENOX AFTER 1800 DOSE ON WEDNESDAY ON 01/25/21.
[2021-01-22] MEDS: carbidopa-levodopa 25-100mg Tablet 1 EACH PO (21:18)
[2021-01-22] MEDS: trazodone 50 mg Tablet PO (21:18)
[2021-01-22] MEDS: atorvastatin 40 mg Tablet 20 MG PO (21:19)
[2021-01-22] MEDS: nitroglycerin 0.4 mg sublingual Tablet SUBLINGUAL (22:11)
[2021-01-23] VITALS (10 sets, daily range): BP systolic 124–143; BP diastolic 64–92; PULSE 61–80; RESP 16–18; TEMP 36.5–36.7; O2SAT 91–98
--- NOTE | 2021-01-23 | USCV_ITS ---
LE Arterial Duplex LEFT Jonathan Canales Age: 85 Gender: M : 1935 Exam Date: 01/23/2021 06:40 Ordering Phys: Kobi Monet MD (Andy) ([email or web address]) Technologist: [place] [facility] [place]ication: PRE OP RIGHT LEFT LOWER EXTREMITY Diameter Diameter (cm) (cm) High Thigh 0.50 Mid Thigh 0.33 Above Knee 0.42 Below Knee 0.21 Mid Calf 0.29 Ankle 0.22 RIGHT LEFT Findings RT GREAT SAPH REMOVED LT GSAPH IS GOOD The greater saphenous vein segments on the left lower extremity were found to be patent Conclusions 1. Patent greater saphenous vein segments on the left side with normal dimensions 2. Venous dimensions as mentioned above Dr Daron Onofre MD [facility] (Electronically Signed) Final Date: 23 January 2021 23:24 S
[2021-01-23] MEDS: chlorhexidine gluconate 0.12% Btl 473 mL 15 ML MUCOUS MEM ×3 (02:32→17:05)
[2021-01-23] MEDS: carbidopa-levodopa 25-100mg Tablet 2 EACH PO ×3 (05:14→11:37)
--- NOTE | 2021-01-23 06:47 | PM.MISC ---
Miscellaneous Note Purpose of Documentation: Mr. Canales was not at bedside during my rounds this morning. He is currently over in the radiology department. He also scheduled for his vein mapping today. Nurses report that he had a good night but did have 1 brief episode of chest discomfort around 930 which he received 1 nitroglycerin and had no further discomfort. We will proceed with our current plans to consider CABG for early WednesdayJanuary 27, as I will be out of town the next couple of days. Of course, at the discretion of Dr. Courtney, if he feels it warranted, would certainly consider transfer if more expeditious option for surgical revascularization is required. I did discuss this at length with Mr. Canales and his yesterday, and it was their desire, if possible, to remain locally as travel was felt to be a challenge. I greatly appreciate Dr. Austin's understanding, expertise, and assistance.
--- NOTE | 2021-01-23 08:00 | XR_ITS ---
WS: [id number] XR chest 2V* [id number] REASON FOR EXAM: Preop for CABG FINDINGS: Moderate tortuosity and ectasia of the thoracic aorta without focal aneurysmal dilatation. Normal heart size. Calcified granulomatous disease in both hemithoraces. No active pulmonary parenchymal or pleural dise ase in the right lung. In the left lung there are some linear opacities representing fibrotic scarrin g or atelectasis. No acute pulmonary parenchymal or pleural abnormality. Moderate degenerative spondylosis in the mid and lower thoracic spine. XR/XR chest 2V* [id number] IMPRESSION: No acute chest abnormality.
[2021-01-23] MEDS: aspirin 81 mg Chew Tablet PO (08:07)
[2021-01-23] MEDS: docusate sodium 100 mg Capsule PO (08:07)
[2021-01-23] MEDS: cholecalciferol (vitamin D3) 1,000 unit Tablet 1000 UNIT PO (08:07)
[2021-01-23] MEDS: isosorbide mononitrate ER 30 mg Tablet PO (08:07)
[2021-01-23] MEDS: amlodipine 10 mg Tablet PO (08:07)
[2021-01-23] MEDS: mupirocin oint 22 gm 1 APPLIC NASAL ×2 (08:07→17:04)
[2021-01-23] MEDS: enoxaparin 40 mg/0.4 mL Syringe SUBCUT ×2 (08:07→17:04)
--- NOTE | 2021-01-23 10:29 | PC.CHAP ---
Pastoral Care Encounter/Spiritual Assessment Type of Contact [] Declined animal care technician visit [] Patient/Family/Request visit [] Outpatient visit [] Follow-up visit [] Physician referral [] Code/Alert [x] Routine visit [] Staff referral [] Actively dying [] Patient sleeping [] Family support [] [] Out of room [] Palliative care [] [x] Receiving care in room [] Pre-surgical visit [] Trauma [] Long length of stay [] ICU visit [] Other: Relational/Emotional Strength [x] Patient feels connected with others/family/visitors/staff [] Distress [] Loneliness/isolation [] Abandonment Spirituality of Patient [x] Person of Christel [] Attends Taoism of their Christel [x] Believes in Prayer [] Reads Bible or Presybeterian materials [] There are Spiritual issues to be addressed Block Press Operator Interventions [x] Prayer [x] Active listening [x] Non-anxious presence [x] Spiritual/emotional support [] Crisis/trauma care [x] Spiritual counseling [] Bereavement support [] Provided bereavement packet [] Provided Bible/devotional materials [] Provided toy/stuffed animal, coloring book to patient or family member [] Provided Communion [] Anointing/[place] [] Salvation [x] Completed spiritual assessment [] Other: Impact on Illness or Injury [] Angry [] Fearful [] Anxious [] Often cries [] Exhaustion [] Unable to work [] Unable to attend restoration [] Unable to walk/stand [] Unable to read [] Unable to drive [] Unable to eat/drink [] Unable to sleep [] Unable to be with family [] Patient intubated [] Other: Summary senior, feels good has a good attitude is going home today Time spent with patient 10 mins
--- NOTE | 2021-01-23 19:57 | P.PN_ITS ---
Subjective Subjective: Interval history: 1 episode of chest pain patient surgery scheduled for Wednesday and will then he will stay in the hospital. Medications: Reviewed: Yes Vitals/I&O/Wt Last Vital Signs Temp 98.0 F 01/23/21 16:00 Pulse 70 01/23/21 16:00 Resp 18 01/23/21 16:00 BP 128/80 01/23/21 16:00 Pulse Ox 98 01/23/21 16:00 01/23/21 01/23/21 01/23/21 06:59 14:59 22:59 Intake Total 100 / 100 480 / 480 240 / 720 Output Total 600 / 1250 250 / 250 Balance -500 / -1150 230 / 230 240 / 470 Physical Exam Narrative: EXAM NARRATIVE: GENERAL: Patient is alert, awake and oriented x3. NECK: No jugular vein distension. HEENT: No cyanosis. No icterus. No pallor. HEART: Regular S1 and S2. No murmur, rub or gallop. LUNGS: Clear to auscultate bilaterally. ABDOMEN: Soft, nontender and nondistended. Positive bowel sounds. No guarding, rebound or tenderness. CENTRAL NERVOUS SYSTEM: Grossly nonfocal. EXTREMITIES: Lower extremities without edema bilaterally. Const: COMMON NORMALS: alert Resp: COMMON NORMALS: clear to auscultation bilaterally AUSCULTATION: clear to auscultation bilaterally Neuro: SENSORIUM/ORIENTATION: Yes alert Data : 01/22/21 04:22 01/22/21 04:22 A&P Assessment and plan (1) Stenosis of left main coronary artery: Continue current regimen patient on Wednesday. Continue on long-acting nitroglycerin. Beta-ayaz aspirin statin Status: Acute (2) Dyslipidemia: Continue statin. Status: Acute (3) Hypertension: Well-controlled continue current regimen Status: Acute Qualifiers: Hypertension type: essential hypertension Qualified Code(s): I10 - Essential (primary) hypertension Attestations Medical Necessity Statement*: Require continuation hospitalization for above event Coding Level of Care Code Established Pt Acute Curator Of Manuscripts for [facility] Fwd Patient Type Established History Detailed Exam Detailed Medical Decision Making Moderate Complexity Diagnoses Stenosis of left main coronary artery I25.10 Dyslipidemia E78.5 Hypertension I10 Hypertension type: essential hypertension
[2021-01-23] MEDS: atorvastatin 40 mg Tablet 20 MG PO (20:56)
[2021-01-23] MEDS: carbidopa-levodopa 25-100mg Tablet 1 EACH PO (20:57)
[2021-01-23] MEDS: trazodone 50 mg Tablet PO (20:57)
[2021-01-24] VITALS (12 sets, daily range): BP systolic 113–149; BP diastolic 63–81; PULSE 61–83; RESP 18–24; TEMP 36.2–36.8; O2SAT 91–97
[2021-01-24] MEDS: cholecalciferol (vitamin D3) 1,000 unit Tablet 1000 UNIT PO (08:20)
[2021-01-24] MEDS: enoxaparin 40 mg/0.4 mL Syringe SUBCUT ×2 (08:20→18:08)
[2021-01-24] MEDS: isosorbide mononitrate ER 30 mg Tablet PO (08:21)
[2021-01-24] MEDS: aspirin 81 mg Chew Tablet PO (08:21)
[2021-01-24] MEDS: docusate sodium 100 mg Capsule PO (08:21)
[2021-01-24] MEDS: amlodipine 10 mg Tablet PO (08:21)
[2021-01-24] MEDS: chlorhexidine gluconate 0.12% Btl 473 mL 15 ML MUCOUS MEM ×2 (08:22→18:07)
[2021-01-24] MEDS: mupirocin oint 22 gm 1 APPLIC NASAL ×2 (08:22→18:07)
--- NOTE | 2021-01-24 10:38 | ANES.PREANE2 ---
Pre-Anesthetic Assessment Pre-Anesthetic Assessment: Height/Weight: Height 1.75 m Weight 76.204 kg Temp Pulse Resp BP Pulse Ox 98.1 F 83 24 H 120/75 96 01/24/21 08:00 01/24/21 08:00 01/24/21 08:00 01/24/21 08:00 01/24/21 08:00 Preop Diagnosis: Left main coronary artery stenosis Proposed Procedure: Operation Date: 01/21/21 10:00 Proposed Procedures p Cardiac Catheterization(Left) - Lazaro Austin MD Operation Date: 01/27/21 07:00 Proposed Procedures p CABG(Not Applicable) - Kobi Monet MD Was Beta Serg taken within 24 hours: N/A Was Clonidine taken within 24 hours: N/A Social: Social History: No alcohol and No tobacco Exam: Pre-Anes Outpt Exam: alert, oriented x 3, clear to auscultation bilaterally and regular rate & rhythm Airway: Submandibular: WNL Cervical ROM: WNL MP: 2 Dentition: Full CV/HEM: CV/HEM: CAD (Left main dz), CHF (diastolic dysfsn) and HTN Comments: EF 55% : : Chronic renal Insufficiency (Cr 1.1) Musc/skel: Musc/skel: OA/DJD Comments: Parkinson's Anesthetic Plan: ASA status: 4 Anesthesia: General Other: CVL/PAC, A.line, RUFINO Risk of > 500 ml blood loss (7ml/kg in children): Yes, adequate IV access and fluids planned Meds/Allergies Current Medications: Current Medications Generic Name Dose Route Start Last Admin Trade Name Coreyq PRN Reason Stop Dose Admin Amlodipine Besylat e 10 mg 01/22/21 09:00 01/24/21 08:21 Amlodipine 10 Mg Tablet PO 10 mg DAILY BENNIE Administration Aspirin 81 mg 01/21/21 14:00 01/24/21 08:21 Aspirin 81 Mg Ch ew Tablet PO 81 mg DAILY BENNIE Administration Atorvastatin Calci um 20 mg 01/21/21 21:00 01/23/21 20:56 Atorvastatin 40 Mg Tablet PO 20 mg BEDTIME BENNIE Administration Carbidopa/Levodopa 2 each 01/22/21 06:00 01/23/21 11:35 Carbidopa-Levodo pa 25-100mg Tablet PO 2 each QAM BENNIE Administration Carbidopa/Levodopa 2 each 01/22/21 12:00 01/23/21 11:37 Carbidopa-Levodo pa 25-100mg Tablet PO 2 each 1200 BENNIE Administration Carbidopa/Levodopa 1 each 01/21/21 21:00 01/23/21 20:57 Carbidopa-Levodo pa 25-100mg Tablet PO 1 each BEDTIME BENNIE Administration Chlorhexidine Gluc barbie 15 ml 01/22/21 18:00 01/24/21 08:22 Chlorhexidine Gl uconate 0.12% Btl 473 Ml MUCOUS MEM 15 ml BID BENNIE Administration Docusate Sodium 100 mg 01/21/21 14:00 01/24/21 08:21 Docusate Sodium 100 Mg Capsule PO 100 mg DAILY BENNIE Administration Enoxaparin Sodium 40 mg 01/22/21 09:00 01/24/21 08:20 Enoxaparin 40 Mg /0.4 Ml Syringe SUBCUT 40 mg BID BENNIE Administration Isosorbide Mononit rate 30 mg 01/21/21 14:00 01/24/21 08:21 Isosorbide [place] itrate Er 30 Mg Ta blet PO 30 mg DAILY BENNIE Administration Mupirocin 1 applic 01/22/21 18:00 01/24/21 08:22 Mupirocin Oint 2 2 Gm NASAL 1 applic BID BENNIE Administration Nitroglycerin 0.4 mg 01/21/21 11:49 01/22/21 22:11 Nitroglycerin 0. 4 Mg Sublingual Ta blet SUBLINGUAL 0.4 mg Q5M PRN Administration chest pain Trazodone HCl 50 mg 01/21/21 21:00 01/23/21 20:57 Trazodone 50 Mg Tablet PO 50 mg BEDTIME BENNIE Administration Vitamin D 1,000 unit 01/22/21 09:00 01/24/21 08:20 Cholecalciferol (Vitamin D3) 1,000 Unit Tablet PO 1,000 unit DAILY BENNIE Administration PFSH Anesthesia PFSH: Medical History Carotid artery disease Dyslipidemia Hypertension Parkinsons Surgical History History of hernia surgery History of knee surgery History of surgery on wrist Social History Smoking and tobacco status: never smoked Household members: spouse and children Marital status: Data Anesthesia CBC & Chem 7: 01/22/21 04:22 01/22/21 04:22 Cardiac Studies: Echocardiogram 01/21/21
[2021-01-24] MEDS: carbidopa-levodopa 25-100mg Tablet 2 EACH PO (12:33)
--- NOTE | 2021-01-24 15:04 | PC.CHAP ---
Pastoral Care Encounter/Spiritual Assessment Type of Contact [] Declined funeral pre arrangement specialist visit [] Patient/Family/Request visit [] Outpatient visit [] Follow-up visit [] Physician referral [] Code/Alert [xx] Routine visit [] Staff referral [] Actively dying [] Patient sleeping [] Family support [] [] Out of room [] Palliative care [] [] Receiving care in room [] Pre-surgical visit [] Trauma [] Long length of stay [] ICU visit [] Other: Relational/Emotional Strength [xx] Patient feels connected with others/family/visitors/staff [] Distress [] Loneliness/isolation [] Abandonment Spirituality of Patient [xx] Person of Christel [] Attends Temple of their Christel [xx] Believes in Prayer [xx] Reads Bible or Confucianism materials [] There are Spiritual issues to be addressed [employer] Manager Interventions [xx] Prayer [xx] Active listening [xx] Non-anxious presence [] Spiritual/emotional support [] Crisis/trauma care [] Spiritual counseling [] Bereavement support [] Provided bereavement packet [] Provided Bible/devotional materials [] Provided toy/stuffed animal, coloring book to patient or family member [] Provided Communion [] Anointing/[place] [] Salvation [xx] Completed spiritual assessment [] Other: Impact on Illness or Injury [] Angry [] Fearful [] Anxious [] Often cries [] Exhaustion [] Unable to work [] Unable to attend sikh [] Unable to walk/stand [] Unable to read [] Unable to drive [] Unable to eat/drink [] Unable to sleep [] Unable to be with family [] Patient intubated [] Other: Summary Patient is having by-pass surgery early Wednesday morning but he will remain in hospital until then to relax, de-stress and be ready for the surgery. He said his , Tanvi, cares for a daughter who had recent kidney transplant and also disabled son. Patient stated he would rather be in hospital until surgery than be home and under foot for the weekend as his needs a break from him at this time. Time spent with patient 12 minutes
[2021-01-24] MEDS: nitroglycerin 0.4 mg sublingual Tablet SUBLINGUAL ×2 (19:28→20:39)
--- NOTE | 2021-01-24 19:53 | PC.NURSE ---
Patient called and requested nitro for chest pain. BP 153/77. One nitro given, patient stated complete relief. Repeat bp taken 116/63. Will continue to monitor. Patient scheduled for bypass on Wednesday.
--- NOTE | 2021-01-24 20:45 | PC.NURSE ---
Patient requested another nitro for chest pain, Given one nitro. See vital signs. Will continue to monitor.
[2021-01-24] MEDS: atorvastatin 40 mg Tablet 20 MG PO (21:04)
[2021-01-24] MEDS: carbidopa-levodopa 25-100mg Tablet 1 EACH PO (21:07)
[2021-01-24] MEDS: trazodone 50 mg Tablet PO (21:07)
[2021-01-25] VITALS (12 sets, daily range): BP systolic 112–134; BP diastolic 60–79; PULSE 62–75; RESP 16–23; TEMP 36.7–36.8; O2SAT 89–98
[2021-01-25] MEDS: carbidopa-levodopa 25-100mg Tablet 2 EACH PO ×2 (05:23→12:33)
[2021-01-25] MEDS: enoxaparin 40 mg/0.4 mL Syringe SUBCUT ×2 (09:17→17:59)
[2021-01-25] MEDS: aspirin 81 mg Chew Tablet PO (09:17)
[2021-01-25] MEDS: cholecalciferol (vitamin D3) 1,000 unit Tablet 1000 UNIT PO (09:17)
[2021-01-25] MEDS: isosorbide mononitrate ER 30 mg Tablet PO ×2 (09:17→17:59)
[2021-01-25] MEDS: docusate sodium 100 mg Capsule PO (09:17)
[2021-01-25] MEDS: amlodipine 10 mg Tablet PO (09:18)
[2021-01-25] MEDS: mupirocin oint 22 gm 1 APPLIC NASAL ×2 (09:19→17:59)
[2021-01-25] MEDS: chlorhexidine gluconate 0.12% Btl 473 mL 15 ML MUCOUS MEM ×2 (09:19→18:00)
--- NOTE | 2021-01-25 09:47 | PC.OT ---
Addendum entered by Dennise Nair OT 01/25/21 09:47: clarification: holding treatment and further evaluation Original Note: Occupational therapy orders received, holding evaluation until after surgery 01/27/21
--- NOTE | 2021-01-25 12:02 | P.PN_ITS ---
Subjective Subjective: Interval history: Mr. Canales has completed his preoperative evaluation. He is tentatively planned for CABG on Wednesday morning. He did have an episode of chest pain last night which did require 2 nitroglycerin. I conferred with nurses, and no arrhythmias or substantial EKG changes from baseline were noted during this episode. It is interesting that both on Wednesday and Wednesday, the episodes occurred in the evening use around 8 PM while he is lying in bed. They have not occurred while he is up ambulating or having increased activity during the day. The time of my exam and visit this morning, he is in good spirits and remains pain-free. He is ambulating freely in the hallways and his room. Vitals/I&O/Wt Last Vital Signs Temp 98.3 F 01/25/21 07:55 Pulse 72 01/25/21 10:28 Resp 16 01/25/21 10:28 BP 133/72 01/25/21 07:55 Pulse Ox 95 01/25/21 10:28 01/24/21 01/25/21 01/25/21 22:59 06:59 14:59 Intake Total 120 / 440 360 / 360 Output Total 700 / 920 Balance 120 / 220 -700 / -480 360 / 360 Physical Exam Chest: COMMONS NORMALS: normal inspection of the chest CHEST: Yes Symmetrical chest wall rise Resp: COMMON NORMALS: normal respiratory effort, No use of accessory muscles, clear to auscultation bilaterally and percussion normal EFFORT & INSPECTION: Yes able to speak in complete sentences and Yes symmetric chest movement AUSCULTATION: clear to auscultation bilaterally PERCUSSION: percussion normal Cardio: COMMON NORMALS: regular rate, regular rhythm, S1 normal heart sound present and No murmurs present (Cardio) RATE: regular rate RHYTHM: regular rhythm HEART SOUNDS: S1 normal heart sound present Extremity: COMMON NORMALS: no clubbing, cyanosis or edema Data : 01/22/21 04:22 01/22/21 04:22 A&P Assessment and plan (1) Stenosis of left main coronary artery: Currently scheduled for CABG on January 27. Preop evaluation been completed. Right greater saphenous vein has been previously removed, the left greater saphenous vein appears to be patent and adequate for bypass. He states his will not be present during the actual hours of the procedure but will visit with him tomorrow evening and also the evening of surgery. He has completed preoperative evaluation as well as education. He is eager to proceed. I will keep in close contact with Dr. Austin. Status: Acute Attestations 2 Medical Necessity Statement*: Left main coronary artery stenosis. Time Spent in Patient Care: 16 - 35 minutes Coding Level of Care Code Acute Logging Truck Driver for Maria M Bonilla Diagnoses Stenosis of left main coronary artery I25.10
--- NOTE | 2021-01-25 16:46 | P.PN_ITS ---
Subjective Subjective: Interval history: Patient had couple of episodes of nitroglycerin chest pain relieved with nitroglycerin otherwise denies any complaint. Medications: Reviewed: Yes Vitals/I&O/Wt Last Vital Signs Temp 98.2 F 01/25/21 16:00 Pulse 65 01/25/21 16:00 Resp 20 H 01/25/21 16:00 BP 112/72 01/25/21 16:00 Pulse Ox 98 01/25/21 16:00 01/25/21 01/25/21 01/25/21 06:59 14:59 22:59 Intake Total 360 / 360 Output Total 700 / 920 Balance -700 / -480 360 / 360 Physical Exam Narrative: EXAM NARRATIVE: GENERAL: Patient is alert, awake and oriented x3. NECK: No jugular vein distension. HEENT: No cyanosis. No icterus. No pallor. HEART: Regular S1 and S2. No murmur, rub or gallop. LUNGS: Clear to auscultate bilaterally. ABDOMEN: Soft, nontender and nondistended. Positive bowel sounds. No guarding, rebound or tenderness. CENTRAL NERVOUS SYSTEM: Grossly nonfocal. EXTREMITIES: Lower extremities without edema bilaterally. Const: COMMON NORMALS: alert Resp: COMMON NORMALS: clear to auscultation bilaterally AUSCULTATION: clear to auscultation bilaterally Neuro: SENSORIUM/ORIENTATION: Yes alert Data : 01/22/21 04:22 01/22/21 04:22 A&P Assessment and plan (1) Stenosis of left main coronary artery: Patient require CABG he is awaiting for surgery on Wednesday. We will continue to monitor him closely. Status: Acute (2) Chest pain: Require couple of nitroglycerin will optimize medicine. Status: Acute Qualifiers: Chest pain type: chest pain due to myocardial ischemia Ischemic chest pain type: unspecified angina pectoris type Qualified Code(s): I25.9 - Chronic ischemic heart disease, unspecified (3) Dyslipidemia: Patient is on statin will continue medicine Status: Acute Attestations Medical Necessity Statement*: Patient require continuation hospitalization for above defined care. Coding Level of Care Code Established Pt Acute Vascular Sonographer for Maria M Bonilla Patient Type Established History Detailed Exam Detailed Medical Decision Making Moderate Complexity Diagnoses Stenosis of left main coronary artery I25.10 Chest pain I25.9 Chest pain type: chest pain due to myocardial ischemia Ischemic chest pain type: unspecified angina pectoris type Dyslipidemia E78.5
--- NOTE | 2021-01-25 19:19 | PC.NURSE ---
Shift Note Frequent safety and comfort rounds continue. Orders and/or nursing care completed as indicated. Patient monitored for response to intervention and treatment(s). Education provided includes[education regarding prep and post op care for upcoming CABG on Wednesday.]. Patient and/or registration representative [states understanding]. Will continue to monitor.
[2021-01-25] MEDS: temazepam 15 mg Capsule PO (20:25)
[2021-01-25] MEDS: trazodone 50 mg Tablet PO (20:25)
[2021-01-25] MEDS: atorvastatin 40 mg Tablet 20 MG PO (20:26)
[2021-01-25] MEDS: carbidopa-levodopa 25-100mg Tablet 1 EACH PO (20:26)
[2021-01-26] VITALS (11 sets, daily range): BP systolic 109–134; BP diastolic 62–73; PULSE 62–82; RESP 9–25; TEMP 36.4–36.9; O2SAT 92–94
[2021-01-26] MEDS: carbidopa-levodopa 25-100mg Tablet 2 EACH PO ×2 (05:49→13:34)
[2021-01-26 07:12] LABS: Basophils # 0.1 10^3/uL (0.0-0.1); Basophils % 0.8 %; Eosinophils # 0.2 10^3/uL (0.0-0.8); Eosinophils % 3.2 %; Hematocrit 41.7 % (42.0-52.0); Hemoglobin 13.8 g/dL (11.7-16.6); Lymphocytes # 1.4 10^3/uL (0.8-4.8); Lymphocytes % 21.3 %; Mean Corpuscular HGB Conc 33.1 g/dL (30.0-36.0); Mean Corpuscular Hemoglobin 32.7 pg (28.0-34.0); Mean Corpuscular Volume 98.8 fl (80-94); Mean Platelet Volume 10.9 fL (7.4-10.4); Monocytes # 0.7 10^3/uL (0.2-0.9); Monocytes % 10.7 %; Neutrophils # 4.12 10^3/uL (1.8-7.7); Neutrophils % 63.7 %; Nucleated Red Blood Cells % 0 %; Platelet Count 159 10^3/cmm (130-400); Red Blood Count 4.22 10^6/uL (4.1-5.3); White Blood Count 6.5 10^3/uL (4.0-10.0)
[2021-01-26 07:31] LABS: INR 1.07 (0.8-1.2)
[2021-01-26 07:32] LABS: Partial Thromboplastin Time 30.6 SECONDS (23.9-36.7)
[2021-01-26 07:51] LABS: Alanine Aminotransferase < 5 U/L (0-41); Alkaline Phosphatase 78 IU/L (40-130); Anion Gap 13.1 (5-19); Aspartate Amino Transferase 24 U/L (0-40); Blood Urea Nitrogen 20 mg/dL (8-23); Calcium 9.1 mg/dL (8.5-10.5); Carbon Dioxide 24 mmol/L (22-29); Chloride 102 mmol/L (98-107); Free T4 Free Thyroxine 1.19 ng/dL (0.82-1.77); Globulin 2.7 g/dL (1.3-4.6); Glucose 99 mg/dL (65-115); Osmolality Calculated 283 mOsm/kg (285-295); Potassium 4.1 mmol/L (3.5-5.1); Sodium 135 mmol/L (136-145); Thyroid Stimulating Hormone 2.54 uIU/mL (0.27-4.20); Total Bilirubin 0.5 mg/dL (0.15-1.2); Total Protein 6.7 g/dL (6.6-8.7)
[2021-01-26] MEDS: mupirocin oint 22 gm 1 APPLIC NASAL ×2 (08:23→17:34)
[2021-01-26] MEDS: amlodipine 10 mg Tablet PO (08:23)
[2021-01-26] MEDS: docusate sodium 100 mg Capsule PO (08:23)
[2021-01-26] MEDS: isosorbide mononitrate ER 30 mg Tablet PO ×2 (08:23→17:34)
[2021-01-26] MEDS: cholecalciferol (vitamin D3) 1,000 unit Tablet 1000 UNIT PO (08:23)
[2021-01-26] MEDS: chlorhexidine gluconate 0.12% Btl 473 mL 15 ML MUCOUS MEM ×2 (08:38→17:35)
--- NOTE | 2021-01-26 09:38 | PC.SOCIAL ---
IMM Updated Updated pt on IMM. No questions voiced. Provided pt a copy. Initialed, dated, & timed copy in chart.
--- NOTE | 2021-01-26 11:14 | P.PN_ITS ---
Subjective Subjective: Interval history: No complaints this morning. Did not describe any episodes of chest discomfort. Evaluation is been completed. No arrhythmias reported by nursing service. Vitals/I&O/Wt Last Vital Signs Temp 97.6 F 01/26/21 07:54 Pulse 62 01/26/21 07:54 Resp 16 01/26/21 07:54 BP 116/69 01/26/21 07:54 Pulse Ox 93 01/26/21 07:54 01/25/21 01/26/21 01/26/21 22:59 06:59 14:59 Intake Total 360 / 720 600 / 1320 360 / 360 Output Total 450 / 450 Balance 360 / 720 150 / 870 360 / 360 Physical Exam Resp: COMMON NORMALS: normal respiratory effort, No use of accessory muscles and clear to auscultation bilaterally EFFORT & INSPECTION: Yes able to speak in complete sentences and Yes symmetric chest movement AUSCULTATION: clear to auscultation bilaterally Cardio: COMMON NORMALS: regular rate, regular rhythm, S1 normal heart sound present, No murmurs present (Cardio) and No rub (Cardio) RATE: regular rate RHYTHM: regular rhythm HEART SOUNDS: S1 normal heart sound present Extremity: COMMON NORMALS: no clubbing, cyanosis or edema Data : 01/26/21 06:50 01/26/21 06:50 A&P Assessment and plan (1) Stenosis of left main coronary artery: Will plan to proceed with CABG in the morning. We will hold Lovenox today. I again reviewed details and conduct of the procedure with Mr. Canales. All questions answered. He is eager to proceed. His is in route to visit with him today, though he states she will not be present tomorrow. We will keep in touch with her by phone. Status: Acute Attestations Medical Necessity Statement*: Left main coronary artery stenosis Time Spent in Patient Care: less than 15 minutes Coding Level of Care Code Acute Supervisor Border Department for Maria M Bonilla Diagnoses Stenosis of left main coronary artery I25.10
[2021-01-26] MEDS: chlorhexidine gluconate 4% Btl 118 mL 1 APPLIC TOPICAL ×2 (14:45→20:47)
[2021-01-26 17:20] LABS: Add Urine Microscopic? NO; Charge for UA Resulting for Rev
[2021-01-26 17:24] LABS: Bilirubin Urine Neg (Negative); Blood Urine Neg (Negative); Glucose Urine UA Norm (Normal); Ketones Urine Negative (Negative); Leukocyte Esterase Urine Negative (Negative); Nitrate Urine Negative (Negative); Protein Urine Neg (Negative); Specific Gravity, Urine 1.015 (1.005-1.030); Urine Appearance Clear (CLEAR); Urine Color Yellow (Yellow); Urobilinogen Urine Norm (Negative); pH Urine 5 (5-7)
--- NOTE | 2021-01-26 20:44 | P.PN_ITS ---
Subjective Subjective: Interval history: Denies any more chest pain he said that he had a good night rest yesterday Medications: Reviewed: Yes Vitals/I&O/Wt Last Vital Signs Temp 98.3 F 01/26/21 19:39 Pulse 78 01/26/21 19:39 Resp 25 H 01/26/21 19:39 BP 134/73 01/26/21 19:39 Pulse Ox 94 01/26/21 19:39 01/26/21 01/26/21 01/26/21 06:59 14:59 22:59 Intake Total 600 / 1320 600 / 600 240 / 840 Output Total 450 / 450 250 / 250 Balance 150 / 870 600 / 600 -10 / 590 Physical Exam Narrative: EXAM NARRATIVE: GENERAL: Patient is alert, awake and oriented x3. NECK: No jugular vein distension. HEENT: No cyanosis. No icterus. No pallor. HEART: Regular S1 and S2. No murmur, rub or gallop. LUNGS: Clear to auscultate bilaterally. ABDOMEN: Soft, nontender and nondistended. Positive bowel sounds. No guarding, rebound or tenderness. CENTRAL NERVOUS SYSTEM: Grossly nonfocal. EXTREMITIES: Lower extremities without edema bilaterally. Const: COMMON NORMALS: alert Resp: COMMON NORMALS: clear to auscultation bilaterally AUSCULTATION: clear to auscultation bilaterally Neuro: SENSORIUM/ORIENTATION: Yes alert Data : 01/26/21 06:50 01/26/21 06:50 A&P Assessment and plan (1) Stenosis of left main coronary artery: Patient is scheduled to undergo coronary bypass surgery tomorrow. He is being assessed by presurgical team. Continue current regimen. Good luck for surgery in the morning Status: Acute (2) Dyslipidemia: On statin will continue medicine Status: Acute (3) Hypertension: Appear to be stable. Continue current regimen Status: Acute Qualifiers: Hypertension type: essential hypertension Qualified Code(s): I10 - Essential (primary) hypertension (4) Chest pain: Denies any more chest pain Status: Acute Qualifiers: Chest pain type: chest pain due to myocardial ischemia Ischemic chest pain type: unspecified angina pectoris type Qualified Code(s): I25.9 - Chronic ischemic heart disease, unspecified Attestations Medical Necessity Statement*: Patient requires continued hospitalization for above defined care. Coding Level of Care Code Established Pt Acute Manager Performance Improvement for g Fwd Patient Type Established History Detailed Exam Detailed Medical Decision Making Moderate Complexity Diagnoses Stenosis of left main coronary artery I25.10 Dyslipidemia E78.5 Hypertension I10 Hypertension type: essential hypertension Chest pain I25.9 Chest pain type: chest pain due to myocardial ischemia Ischemic chest pain type: unspecified angina pectoris type
[2021-01-26] MEDS: atorvastatin 40 mg Tablet 20 MG PO (20:46)
[2021-01-26] MEDS: carbidopa-levodopa 25-100mg Tablet 1 EACH PO (20:46)
[2021-01-26] MEDS: trazodone 50 mg Tablet PO (20:46)
[2021-01-27] VITALS (51 sets, daily range): BP systolic 111–147; BP diastolic 51–89; PULSE 67–100; RESP 12–22; TEMP 36.6–37.6; O2SAT 92–100
[2021-01-27] MEDS: carbidopa-levodopa 25-100mg Tablet 2 EACH PO (04:44)
--- NOTE | 2021-01-27 06:09 | P.PN_ITS ---
Subjective Subjective: Interval history: Mr. Canales is ready to proceed with surgery. He denies any further episodes of chest discomfort. He did visit with his yesterday and we do have her contact information. She will will be remaining at home this morning. Vitals/I&O/Wt Last Vital Signs Temp 97.9 F 01/27/21 03:33 Pulse 72 01/27/21 03:33 Resp 18 01/27/21 03:33 BP 112/63 01/27/21 03:33 Pulse Ox 94 01/27/21 03:33 01/26/21 01/26/21 01/27/21 14:59 22:59 06:59 Intake Total 600 / 600 240 / 840 Output Total 250 / 250 200 / 450 Balance 600 / 600 -10 / 590 -200 / 390 Physical Exam Resp: COMMON NORMALS: normal respiratory effort, No use of accessory muscles and clear to auscultation bilaterally EFFORT & INSPECTION: Yes able to speak in complete sentences and Yes symmetric chest movement AUSCULTATION: clear to auscultation bilaterally Cardio: COMMON NORMALS: regular rate, regular rhythm, S1 normal heart sound present and No murmurs present (Cardio) RATE: regular rate RHYTHM: regular rhythm HEART SOUNDS: S1 normal heart sound present GI: COMMON NORMALS: Normal to inspection, nondistended, normoactive bowel sounds present Extremity: COMMON NORMALS: no clubbing, cyanosis or edema Data : 01/26/21 06:50 01/26/21 06:50 A&P Assessment and plan (1) Stenosis of left main coronary artery: We will plan to proceed with CABG this morning. Saphenous vein has been previously partial removed from the right lower extremity though the left greater saphenous vein appears to be of adequate quality and length. All questions were answered. He is eager to proceed with surgery. Status: Acute Attestations Medical Necessity Statement*: Left main coronary artery stenosis Time Spent in Patient Care: less than 15 minutes Coding Level of Care Code Acute Preform Machine Operator for Maria M Bonilla Diagnoses Stenosis of left main coronary artery I25.10
--- NOTE | 2021-01-27 06:16 | P.ANESUD_ITS ---
Pre-Anesthetic Update Pre-Anesthetic Assessment: Date of Surgery/Procedure: 01/27/21 Preop Anabella gnosis: Left main coronary artery stenosis Proposed Procedure: Operation Date: 01/21/21 10:00 Proposed Procedures p Cardiac Catheterization(Left) - Lazaro Austin MD Operation Date: 01/27/21 07:00 Proposed Procedures p CABG(Not Applicable) - Kobi Monet MD Any changes to Pre-Anesthetic Assessment?: No Labs Last 48hrs: Laboratory Results - last 48 hr 01/25/21 01/26/21 01/26/21 03:59 06:50 06:50 WBC 6.5 RBC 4.22 Hgb 13.8 Hct 41.7 L MCV 98.8 H MCH 32.7 MCHC 33.1 RDW 12.0 L Plt Count 159 MPV 10.9 H Neut % (Auto) 63.7 Lymph % (Auto) 21.3 Payne % (Auto) 10.7 Eos % (Auto) 3.2 Baso % (Auto) 0.8 Neut # (Auto) 4.12 Lymph # (Auto) 1.4 Payne # (Auto) 0.7 Eos # (Auto) 0.2 Baso # (Auto) 0.1 Nucleated RBC % (a uto) 0 Nucleated RBCs # 0.0 PT 14.20 INR 1.07 APTT 30.6 Sodium Potassium Chloride Carbon Dioxide Anion Gap BUN Creatinine GFR Calculation Glucose Calculated Osmolal ity Calcium Total Bilirubin Direct Bilirubin AST ALT Alkaline Phosphata se Total Protein Albumin Globulin TSH Free T4 Urine Color Urine Appearance Urine pH Ur Specific Gravit y Urine Protein Urine Glucose (UA) Urine Ketones Urine Blood Urine Nitrate Urine Bilirubin Urine Urobilinogen Ur Leukocyte Jackelin ase Blood Type O Positive Rho(D) Type Positive Antibody Screen Negative Crossmatch See Detail 01/26/21 01/26/21 06:50 17:05 WBC RBC Hgb Hct MCV MCH MCHC RDW Plt Count MPV Neut % (Auto) Lymph % (Auto) Payne % (Auto) Eos % (Auto) Baso % (Auto) Neut # (Auto) Lymph # (Auto) Payne # (Auto) Eos # (Auto) Baso # (Auto) Nucleated RBC % (a uto) Nucleated RBCs # PT INR APTT Sodium 135 L Potassium 4.1 Chloride 102 Carbon Dioxide 24 Anion Gap 13.1 BUN 20 Creatinine 1.1 GFR Calculation Not Reportable Glucose 99 Calculated Osmolal ity 283 L Calcium 9.1 Total Bilirubin 0.5 Direct Bilirubin 0.20 AST 24 ALT < 5 Alkaline Phosphata se 78 Total Protein 6.7 Albumin 4.0 Globulin 2.7 TSH 2.54 Free T4 1.19 Urine Color Yellow Urine Appearance Clear Urine pH 5 Ur Specific Gravit y 1.015 Urine Protein Neg Urine Glucose (UA) Norm Urine Ketones Negative Urine Blood Neg Urine Nitrate Negative Urine Bilirubin Neg Urine Urobilinogen Norm Ur Leukocyte Jackelin ase Negative Blood Type Rho(D) Type Antibody Screen Crossmatch Vitals: Temperature 97.9 F 01/27/21 03:33 Temperature Source Oral 01/27/21 03:33 Pulse Rate 72 01/27/21 03:33 Pulse Rhythm 01/22/21 09:31 Pulse Strength 3+ Normal 01/27/21 00:00 Respiratory Rate 18 01/27/21 03:33 Respiratory Effort Non-Labored 01/27/21 00:00 Respiratory Depth Normal 01/27/21 00:00 Respiratory Patter n 01/21/21 15:44 Blood Pressure 112/63 01/27/21 03:33 Blood Pressure Yoselin n 79 01/27/21 03:33 Blood Pressure Pos ition Supine 01/27/21 03:33 Pulse Oximetry 94 01/27/21 03:33 Oxygen Delivery Me thod 01/26/21 15:26 Exam: Pre-Anes Outpt Exam: alert, oriented x 3, clear to auscultation bilaterally and regular rate & rhythm Cardiac Studies: Echocardiogram 01/21/21
--- NOTE | 2021-01-27 09:01 | XRR_ITS ---
PROCEDURE INFORMATION: Exam: XR Chest Exam date and time: 01/27/2021 9:01 AM Age: 85 years old Clinical indication: Condition or disease; Other: Post op cabg; Prior surgery; Surgery date: Post-operative (0-2 days); Additional info: Open heart in room 1. Will call when ready TECHNIQUE: Imaging protocol: XR of the chest. Views: 1 view. COMPARISON: CR XR chest 2V* [id number] 01/23/2021 6:47 AM FINDINGS: Tubes, catheters and devices: There is an endotracheal tube present with the tip at the level of the clavicular heads. There is an enteric tube extending down into the stomach. There is a right jugular central line present with the tip in the superior vena cava. There is a right jugular Allardt-Salma catheter present with the tip in the proximal right pulmonary artery. Left thoracostomy tube and mediastinal drains present. Lungs: There is central pulmonary vascular congestion with bronchial wall thickening, perihilar haziness, and thickening of the minor fissure. Pleural spaces: There may be a small left pleural effusion posteriorly. No pneumothorax. Heart/Mediastinum: The cardiac silhouette is not enlarged for a portable exam. Interval CABG. There is widening in the mediastinum which is nonspecific in this patient who has just had cardiac surgery. Bones/joints: Interval median sternotomy. There are multilevel bridging osteophytes in the spine. XR/XR chest 1V portable [id number] IMPRESSION: 1. Interval postoperative changes. 2. Lines and tubes as described. 3. Interstitial pulmonary edema. 4. Nonspecific mediastinal widening. Short-term radiographic follow-up, if not CT CHEST, is recommended.
[2021-01-27] MEDS: vancomycin 1,000 MG SDV 2000 MG IRRIGATION (09:17)
--- NOTE | 2021-01-27 09:21 | PC.OT ---
OT EVALUATION AND TREATMENT HELD UNTIL AFTER SURGERY.
[2021-01-27] MEDS: heparin, porcine 1,000 unit/mL INJ 10 mL 1750 UNIT IRRIGATION (09:22)
[2021-01-27] MEDS: sodium bicarbonate 1 mEq/mL SDV 50mL 0.7 MEQ IRRIGATION (09:24)
--- NOTE | 2021-01-27 09:28 | PC.CHAP ---
Pastoral Care Encounter/Spiritual Assessment Type of Contact [] Declined rn integrity visit [] Patient/Family/Request visit [] Outpatient visit [] Follow-up visit [] Physician referral [] Code/Alert [x] Routine visit [] Staff referral [] Actively dying [] Patient sleeping [] Family support [] [] Out of room [] Palliative care [] [] Receiving care in room [] Pre-surgical visit [] Trauma [] Long length of stay [x] ICU visit [x] Other: cardiac surgery Relational/Emotional Strength [] Patient feels connected with others/family/visitors/staff [] Distress [] Loneliness/isolation [] Abandonment Spirituality of Patient [] Person of Christel [] Attends Roman Catholic of their Christel [] Believes in Prayer [] Reads Bible or Spiritism materials [] There are Spiritual issues to be addressed Environmental Monitoring Specialist Interventions [x] Prayer [] Active listening [] Non-anxious presence [] Spiritual/emotional support [] Crisis/trauma care [] Spiritual counseling [] Bereavement support [] Provided bereavement packet [] Provided Bible/devotional materials [] Provided toy/stuffed animal, coloring book to patient or family member [] Provided Communion [] Anointing/[place] [] Salvation [x] Completed spiritual assessment [] Other: Impact on Illness or Injury [] Angry [] Fearful [] Anxious [] Often cries [] Exhaustion [] Unable to work [] Unable to attend episcopalian [] Unable to walk/stand [] Unable to read [] Unable to drive [] Unable to eat/drink [] Unable to sleep [] Unable to be with family [] Patient intubated [] Other: Summary Time spent with patient
--- NOTE | 2021-01-27 14:05 | PC.NURSE ---
Pt arrives to ICU from OR. Wound vac mid chest patent with sponge compressed. Pt intubated. CVL and cordis with SWANZ noted in right neck, Iv lines attached but nothing infusing at this time. Art line noted in right wrist, patent with good wave form. Bar patent and draining. Hema wrap noted on left peg. Pacemaker attached but off.
--- NOTE | 2021-01-27 14:10 | ANE.PACU2 ---
Inpatient post-anesthesia follow up: Airway intact: No Vital signs: Temperature 97.9 F Pulse Rate 67 Respiratory Rate 18 Blood Pressure 127/71 Pulse Oximetry 92 Oxygen Delivery Me thod [Rate & Room Air Delivery Changed T o] Oxygen Delivery Me thod Room Air Oxygen Flow Rate Fraction of Inspir ed Oxygen Hydration adequate: Yes Nausea and vomiting: No Pain level: Other Additional Comments: patient to ICU on ventilator. 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
--- NOTE | 2021-01-27 14:13 | P.OP_ITS ---
Operative Report Date of procedure: January 27, 2021 Pre-op Diagnosis: Left main coronary artery stenosis Post-op diagnosis: same Procedure Done: 1. Coronary artery bypass grafting x2 (1 artery and 1 vein) utilizing in situ left internal mammary artery to the left anterior descending artery, reverse sinus vein graft aorta to the obtuse marginal branch of circumflex artery. 2. Endoscopic saphenous vein harvesting of the left greater saphenous vein Pathology: none sent Anesthesia: General Complications: None Findings: Diffuse atherosclerotic disease of target vessels, heaviest in the LAD Condition: stable Disposition: ICU Brief History: Mr. Canales is an 85-year-old gentleman admitted with a progressive history of exertional chest discomfort. Subsequent evaluations included left heart catheterization by Dr. Austin which revealed a high-grade left main coronary artery stenosis as well as mid disease of the LAD of 90%. Due to his left main stenosis, he was referred for consideration of surgical revascularization. He underwent careful outpatient preoperative evaluation. Details the risk of surgery were carefully and frankly discussed with Mr. Canales and his . Procedure: Details and risks of the surgery were carefully and frankly explained to Parker and his . Particular risks of this surgery carefully reviewed with them included the possibility of , stroke, heart attack, major bleeding, infection, pneumonia, pain, organ failure, failure to benefit, early closure of the bypass grafts, prolonged hospital stay and subsequent need for further procedures. Increased risks for complications secondary to left main coronary artery stenosis and advanced age were carefully reviewed. He and his understand these increased risks. All questions were answered and appropriate consents were reviewed and signed. Preoperative education for the patient and the family included both written and video materials. They wished to proceed with plans for attempted surgical revascularization for severe coronary artery bypass. PROCEDURE: Preoperative evaluation was obtained from our Anesthesia colleagues and adequate IVs were confirmed. The patient was then taken to the Operating Room Suite where general anesthesia was induced. Appropriate invasive monitoring lines were placed, including large bore peripheral IVs, central line, Georgiana-Salma catheter, Bar catheter and associated monitoring leads. After careful positioning on the Operating Room table, the patient was subsequently sterilely prepped and draped. Saphenous vein was harvested by endoscopic technique from the left lower extremity. Branches were secured with ligature and clips and the vein was extracted from the tunnel without tension. It was then flushed with a Heparin and albumin solution and prepared for grafting. Vein harvest sites were irrigated, platelet poor plasma infused into the tunnel and port sites closed with 3-0 and 4-0 Vicryl Plus suture. Simultaneously with vein harvesting, a median sternotomy was created utilizing a #10 scalpel blade with hemostasis controlled with cautery. After reaching the sternal table, the sternum was divided with a reciprocating saw. Bleeding was controlled with cautery and judicious use of bone wax. Following this, the left chest wall was elevated with a Rultract retractor. The left internal mammary ar justin was dissected free with branches being secured with clips and cautery. The distal end was left intact. After harvesting of the mammary artery, a left pleural chest tube was then placed. The left chest wall was then lowered and moistened antibiotic-soaked laparotomy pads were placed in the wound, followed by an Ankeney retractor. The sternum was then and the pericardium opened and secured with stay sutures. After inspection, 2-0 pledgeted Ethibond sutures were placed at cannulation sites, at which time the patient was fully heparinized. Following this, the left internal mammary artery was taken down from its distal attachment, flushed with Papaverine solution, prepared for grafting and brisk flow confirmed. A soft bulldog was applied distally. Next, the heart was cannulated with a 22-Moldovan aortic cannula, two-stage venous cannula and aortic root vent. The patient was subsequently placed on cardiopulmonary bypass and cooled systemically to 34 degrees. Aortic cross-clamp was then carefully placed and 4 degree Celsius cold blood cardioplegia was administered through the aortic root in antegrade fashion. Prompt diastolic arrest was obtained. Left ventricular decompression was confirmed. The heart was cooled systemically with iced saline with an insulation pad in place to protect the phrenic nerve. Throughout the cross-clamp period, at 20-30 minute intervals, antegrade blood cardioplegia was administered to maintain asystole. We then inspected the cardiac surface and coronary anatomy. The RCA was a large vessel without obstructive disease as noted by left heart catheterization. The circumflex vessel was a 3 mm sized vessel and a good target. The LAD had diffuse disease throughout its course. There was a tight greater than 90% stenosis at the junction between the mid one third and distal one third. We initially opened up the OMB at 2 mm in size. Vein was anastomosed distally in an inside fashion with 7-0 Prolene suture and then proximally to a 4 mm aortotomy with 5-0 Prolene. With the rewarming phase of bypass continuing, the left internal mammary artery was brought through a left anterior pericardial window into the field. The LAD was opened up at the junction between the mid one third and distal one third where there was a tight stenosis which was palpable and also noted on left heart catheterization. I was able to split this area opened to allow for grafting which would cover this region and thereby provide perfusion both proximally and distally from this point. The MONAHAN was then anastomosed to the LAD with a running 7-0 Prolene suture. It should be noted that all distal coronary anastomoses were performed over the appropriate size coronary shunt which was removed prior to securing the distal suture line. Following this, aortic cross- clamp was released and de-airing maneuvers were performed through the aortic root vent, as well as being confirmed by transesophageal echocardiography. Dobutamine at 3 mcg per kilogram per minute was administered with good chronotropic and inotropic affect. The heart returned to spontaneous sinus rhythm and did not require cardioversion or pacing. After adequate recovery from the cross-clamp period and confirmation of cardiac stability, the patient was weaned from bypass without difficulty. Venous cannula was removed. Heparin was reversed with Protamine and confirmed by measurement of activated clotting time. The heart was then decannulated and cannulation sites were oversewn as required. Pacing wires were placed and brought through the skin and secured. Radiopaque markers were placed on the vein grafts at the level of aorta. Two mediastinal drains were placed and connected to Pleur-evac suction. The wound was carefully irrigated and hemostasis was confirmed. Ankeney retractor was removed and sponge and needle count was correct. 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 Fascia was closed with #1 Vicryl suture with the next layers being closed with 2-0 and 3-0 suture. The skin was reapproximated carefully in a subcuticular manner. Sterile dressings were applied, followed by a vacuum-assisted dressing. The patient was carefully removed from the operating room table and transferred to the Intensive Care [facility]. His was then counseled as to the details of the procedure and had been kept apprised by phone calls throughout the case. Dr. Austin was notified of our operative findings and procedure details.
--- NOTE | 2021-01-27 14:20 | ECG_ITS ---
[facility] Test Date: 2021-01-27 Pat Name: Jonathan Canales Department: Room: ICU10 Gender: Male Fur Examiner: : 1935 Requested By: Kobi Monet Order Number: [id number] Reading MD: Measurements Intervals [place] Rate: 91 P: -57 MO: 296 QRS: 34 QRSD: 102 T: 91 QT: 361 QTc: 445 Interpretive Statements SINUS RHYTHM WITH FIRST DEGREE AV BLOCK NONSPECIFIC ST & T-WAVE ABNORMALITY No previous ECG available for comparison [email or web address]
--- NOTE | 2021-01-27 14:24 | PC.NURSE ---
Addendum entered by Herminia Cornejo RN 01/27/21 19:23: Dr Monet notified. Original Note: Labs reviewed. No replacement blood or electrolytes indicated at this time.
[2021-01-27 14:30] LABS: ABG PCO2 38.1 mmHg (35-45); ABG PH Result 7.35 (7.35-7.45); Arterial Blood Gas Hematocrit 33.8 % (42-52); Base Excess ABG -4.2 mmol/L (-2.0-2.0); Blood Gas Operator Identificat CAK; Blood Gas Sample Site ARTLINE; Blood Gas Sample Type Arterial; Blood Gas Tidal Volume 0.55; Oxygen Device VENT
[2021-01-27] MEDS: fentaNYL 50 mcg/mL INJ 2mL IVP ×3 (14:41→21:14)
[2021-01-27 14:51] LABS: Basophils # 0.1 10^3/uL (0.0-0.1); Basophils % 0.3 %; Eosinophils % 0.2 %; Hematocrit 32.6 % (42.0-52.0); Hemoglobin 10.8 g/dL (11.7-16.6); Lymphocytes # 0.8 10^3/uL (0.8-4.8); Lymphocytes % 5.6 %; Mean Corpuscular HGB Conc 33.1 g/dL (30.0-36.0); Mean Corpuscular Hemoglobin 32.6 pg (28.0-34.0); Mean Corpuscular Volume 98.5 fl (80-94); Monocytes # 1.3 10^3/uL (0.2-0.9); Monocytes % 8.4 %; Neutrophils # 12.77 10^3/uL (1.8-7.7); Neutrophils % 84.7 %; Nucleated Red Blood Cells % 0 %; Platelet Count 95 10^3/cmm (130-400); Red Blood Count 3.31 10^6/uL (4.1-5.3); Red Cell Distribution Width 11.9 % (12.1-15.1); White Blood Count 15.1 10^3/uL (4.0-10.0)
[2021-01-27 15:03] LABS: Partial Thromboplastin Time 31.3 SECONDS (23.9-36.7)
[2021-01-27] MEDS: sodium chloride 0.9% 1,000 ML 75 ML IV (15:05)
[2021-01-27] MEDS: albumin 12.5 GM/250 ML VIAL IV ×2 (15:05→15:32)
[2021-01-27 15:12] LABS: Anion Gap 11.5 (5-19); Blood Urea Nitrogen 17 mg/dL (8-23); Carbon Dioxide 20 mmol/L (22-29); Chloride 111 mmol/L (98-107); Glucose 163 mg/dL (65-115); Magnesium 2.4 mg/dL (1.7-2.3); Osmolality Calculated 291 mOsm/kg (285-295); Potassium 4.5 mmol/L (3.5-5.1); Sodium 138 mmol/L (136-145)
--- NOTE | 2021-01-27 15:31 | ANE.PACU2 ---
Inpatient post-anesthesia follow up: Airway intact: Yes (ETT) Vital signs: Temperature 97.9 F Pulse Rate 67 Respiratory Rate 14 Blood Pressure 127/71 Pulse Oximetry 99 Oxygen Delivery Me thod [Rate & Room Air Delivery Changed T o] Oxygen Delivery Me thod Room Air Oxygen Flow Rate Fraction of Inspir ed Oxygen 100 Hydration adequate: Yes Nausea and vomiting: No Pain level: 3 Additional Comments: Intubated/sedated to ICU, stable
--- NOTE | 2021-01-27 15:42 | PC.NURSE ---
CVL line out, found laying in bed intact next to pt. Clamp still sewn to neck. Cordis taped to secure, no stitches noted. Dr Monet notified; to call anesthesia. Dr Lopez notified, coming to unit.
--- NOTE | 2021-01-27 16:30 | PC.NURSE ---
New Delma and Wes. Wes at 60. New CVL also inserted.
--- NOTE | 2021-01-27 16:40 | XRR_ITS ---
PROCEDURE INFORMATION: Exam: XR Chest Exam date and time: 01/27/2021 4:40 PM Age: 85 years old Clinical indication: Device placement; Other: Divya and cvl placement; Additional info: Saragosa and cvl placement TECHNIQUE: Imaging protocol: XR of the chest. Views: 1 view. COMPARISON: CR XR chest 1V portable [id number] 01/27/2021 1:20 PM FINDINGS: Tubes, catheters and devices: Right IJ central line with tip over the proximal SVC. Right IJ Saragosa-Salma catheter with tip in the right hilum. Mediastinal and left pleural chest tubes. Intubation with tip 7.5 cm above the kiran. Gastric tube with tip in the fundus of the stomach. Lungs: Mild basilar atelectasis. Pleural spaces: Left pleural effusion. Trace left apical pneumothorax. Heart/Mediastinum: Unremarkable. No cardiomegaly. Bones/joints: Median sternotomy changes. XR/XR chest 1V portable [id number] IMPRESSION: 1. Postop chest with trace left apical pneumothorax. 2. Basilar atelectasis and left pleural effusion.
--- NOTE | 2021-01-27 17:20 | PC.NURSE ---
Labs reviewed. No replacementblood products or electrolytes indicated at this time.
--- NOTE | 2021-01-27 17:25 | ANES.PROC ---
Anesthesia Procedures Procedure/Date: 01/27/21 Arterial Line: Time Out Performed: Yes Consent: requested by attending/covering physician, from patient, risks and benefits reviewed and patient agrees to proceed Size (Gauge): 20 Technique Used: guide wire technique Post-Procedure: dry sterile dressing placed Patient Tolerated Procedure: well Complications: none Site: right and radial Additional Comments: Done in OR this morning. Central Venous Insert: Central Venous Line: Triple lumen and PAC introducer placed this morning in OR and then replaced this afternoon in ICU after being pulled out. 7fr. 3-lumen CVL and 9fr. single lumen introducer. Time Out Performed: Yes Consent: requested by attending/covering physician, risks and benefits reviewed and patient agrees to proceed Central Line: New Anesthesia monitors: pulse oximetry, EKG, BP cuff and oxygen Vein cannulated: right internal jugular Post procedure: Obtain Chest X-Ray Additional Comments: Double stick (with PAC introducer), sterile prep, drape, gown, glove...seldinger technique, passed easily and sutured in place.
[2021-01-27 17:44] LABS: Basophils % 0.2 %; Eosinophils % 0.1 %; Hematocrit 33.4 % (42.0-52.0); Hemoglobin 11.1 g/dL (11.7-16.6); Lymphocytes # 0.4 10^3/uL (0.8-4.8); Lymphocytes % 2.7 %; Mean Corpuscular HGB Conc 33.2 g/dL (30.0-36.0); Mean Corpuscular Hemoglobin 32.6 pg (28.0-34.0); Mean Corpuscular Volume 98.2 fl (80-94); Mean Platelet Volume 11.1 fL (7.4-10.4); Monocytes # 1.2 10^3/uL (0.2-0.9); Monocytes % 7.3 %; Neutrophils # 14.41 10^3/uL (1.8-7.7); Nucleated Red Blood Cells % 0 %; Platelet Count 105 10^3/cmm (130-400); White Blood Count 16.2 10^3/uL (4.0-10.0)
--- NOTE | 2021-01-27 17:48 | PC.NURSE ---
Addendum entered by Herminia Cornejo RN 01/27/21 19:35: also notified of small pneumothorax left apical region on xray report. Result of surgery per Dr Lopez. Original Note: Dr Lorenz notified of chest xray back for new CVl and Cordis/Swanz placement. Per Dr. stephanie valdez.
[2021-01-27 17:59] LABS: Blood Urea Nitrogen 16 mg/dL (8-23); Carbon Dioxide 20 mmol/L (22-29); Chloride 110 mmol/L (98-107); Glucose 171 mg/dL (65-115); Magnesium 2.2 mg/dL (1.7-2.3); Osmolality Calculated 297 mOsm/kg (285-295); Sodium 141 mmol/L (136-145)
[2021-01-27] MEDS: aspirin 81 mg Chew Tablet OG-TUBE (18:07)
[2021-01-27] MEDS: HYDROcodone-acetaminophen 5-325 mg Tablet 1 TAB PO (18:07)
[2021-01-27] MEDS: chlorhexidine gluconate 0.12% Btl 473 mL 15 ML MUCOUS MEM (18:07)
--- NOTE | 2021-01-27 19:29 | PC.NURSE ---
Shift Note: Pt remains sedated and on vet. Fio2 decreased to 50% at this time. Pt starting to stir. Good wasveforms noted on PA, CVP and art line. Insulin, Nitro, propofol and NS infusing at end of shift. Wond vac remains patnet with a compressed sponge. Chest tubes, minimal drainage, see flow chart, mediastinal and pleural remains patent and draining serosangiuness fluids. Bar remains patent , with clear yellow urine, 1975 ml. Frequent safety and comfort rounds continue. Orders and/or nursing care completed as indicated. Patient monitored for response to intervention and treatment(s). Education provided include preventing infection, sternal precautions. verbalized understanding of continued care. . Will continue to monitor.
[2021-01-27] MEDS: vancomycin 1,000 MG in sodium chloride 0.9% 250 ML 250 MG IV (19:35)
--- NOTE | 2021-01-27 20:15 | PM.PN ---
Subjective Subjective: Interval history: Underwent two-vessel bypass today appear to be stable from a cardiovascular perspective Medications: Reviewed: Yes Vitals/I&O/Wt Last Vital Signs Temp 97.9 F 01/27/21 03:33 Pulse 92 01/27/21 20:00 Resp 12 01/27/21 20:03 BP 132/76 01/27/21 20:00 Pulse Ox 98 01/27/21 20:03 01/27/21 01/27/21 01/27/21 06:59 14:59 22:59 Intake Total 4740 / 4740 500 / 5240 Output Total 200 / 450 790 / 790 2363 / 3153 Balance -200 / 390 3950 / 3950 -186 / 2087 Physical Exam Narrative: EXAM NARRATIVE: GENERAL: Patient is intubated and sedated NECK: No jugular vein distension. HEENT: No cyanosis. No icterus. No pallor. HEART: Regular S1 and S2. No murmur, rub or gallop. LUNGS: Clear to auscultate bilaterally. ABDOMEN: Soft, nontender and nondistended. Positive bowel sounds. No guarding, rebound or tenderness. CENTRAL NERVOUS SYSTEM: Cannot assess due to sedation EXTREMITIES: Lower extremities without edema bilaterally. Const: COMMON NORMALS: alert Resp: COMMON NORMALS: clear to auscultation bilaterally AUSCULTATION: clear to auscultation bilaterally Neuro: SENSORIUM/ORIENTATION: Yes alert Urinary Catheter Management^: Bar: Cath Placed During This Visit: yes Reason for Continuing Indwelling Catheter: Perioperative Use in Selected Surgeries Urinary Catheter Date of Insertion: 01/27/21 Urinary Catheter Time of Insertion: 07:00 Data : 01/28/21 04:10 01/28/21 14:44 A&P Assessment and plan (1) Status post aorto-coronary artery bypass graft: Status post coronary artery bypass surgery day 1 continue as per surgery. Status: Acute (2) Dyslipidemia: Continue statin Status: Acute (3) Hypertension: Well-controlled continue current regimen Status: Acute Qualifiers: Hypertension type: essential hypertension Qualified Code(s): I10 - Essential (primary) hypertension Attestations Medical Necessity Statement*: Patient required continuation hospitalization for about different care. Procedures Arterial Line Size (Gauge): 20 Coding Level of Care Code Established Pt Acute Cloth Grader Supervisor for Chg Fwd Patient Type Established Exam Expanded Problem Focused Medical Decision Making Moderate Complexity Diagnoses Status post aorto-coronary artery bypass graft Z95.1 Dyslipidemia E78.5 Hypertension I10 Hypertension type: essential hypertension
[2021-01-27 21:13] LABS: Basophils % 0.2 %; Hematocrit 33.2 % (42.0-52.0); Hemoglobin 11.3 g/dL (11.7-16.6); Lymphocytes # 0.4 10^3/uL (0.8-4.8); Mean Corpuscular Hemoglobin 32.6 pg (28.0-34.0); Mean Corpuscular Volume 95.7 fl (80-94); Mean Platelet Volume 11.1 fL (7.4-10.4); Monocytes # 1.3 10^3/uL (0.2-0.9); Monocytes % 7.3 %; Neutrophils # 15.85 10^3/uL (1.8-7.7); Nucleated Red Blood Cells % 0 %; Platelet Count 105 10^3/cmm (130-400); Red Blood Count 3.47 10^6/uL (4.1-5.3); White Blood Count 17.6 10^3/uL (4.0-10.0)
[2021-01-27 21:30] LABS: Anion Gap 13.9 (5-19); Blood Urea Nitrogen 14 mg/dL (8-23); Calcium 8.3 mg/dL (8.5-10.5); Carbon Dioxide 21 mmol/L (22-29); Chloride 112 mmol/L (98-107); Glucose 109 mg/dL (65-115); Osmolality Calculated 297 mOsm/kg (285-295); Potassium 3.9 mmol/L (3.5-5.1); Sodium 143 mmol/L (136-145)
[2021-01-27] MEDS: oxyCODONE-APAP 5-325 mg Tablet PO (21:54)
[2021-01-27] MEDS: potassium chloride premix 100 ML 25 MEQ IV (21:54)
[2021-01-27 22:04] LABS: Magnesium 2.1 mg/dL (1.7-2.3)
[2021-01-27 22:44] LABS: ABG PCO2 36.6 mmHg (35-45); ABG PH Result 7.41 (7.35-7.45); Arterial Blood Gas Hematocrit 34.9 % (42-52); Base Excess ABG -1.1 mmol/L (-2.0-2.0); Blood Gas Operator Identificat JB; Blood Gas Sample Site Not specified; Blood Gas Sample Type Arterial; Carboxyhemoglobin 1.1 %THgb (0.4-20.1); HCO3 ABG 23.2 mmol/L (22-26); Ionized Calcium Level - ABG 1.2 mmol/L (1.1-1.4); Methemoglobin 1.2 % (0.4-1.5); Oxygen Device VENT; Oxygen Saturation ABG 96.2; PO2 ABG 71.6 mmHg (80.0-100.0); Potassium Level - ABG 4.2 mmol/L (3.5-5.0); Total Hemoglobin 11.4 g/dL (14-18)
--- NOTE | 2021-01-27 23:04 | PC.RESP ---
pt extubated to 4lm nc without incident
[2021-01-28] VITALS (65 sets, daily range): BP systolic 96–133; BP diastolic 61–81; PULSE 72–101; RESP 15–32; TEMP 37.3–37.5; O2SAT 89–95
[2021-01-28] MEDS: fentaNYL 50 mcg/mL INJ 2mL IVP (01:58)
[2021-01-28 03:01] LABS: Glucose Point of Care 162 mg/dL (70-110)
[2021-01-28 03:01] LABS: Glucose Point of Care 108 mg/dL (70-110)
[2021-01-28 03:01] LABS: Glucose Point of Care 154 mg/dL (70-110)
[2021-01-28 03:01] LABS: Glucose Point of Care 137 mg/dL (70-110)
[2021-01-28 03:01] LABS: Glucose Point of Care 88 mg/dL (70-110)
[2021-01-28 03:01] LABS: Glucose Point of Care 98 mg/dL (70-110)
[2021-01-28 03:01] LABS: Glucose Point of Care 113 mg/dL (70-110)
[2021-01-28 03:01] LABS: Glucose Point of Care 146 mg/dL (70-110)
[2021-01-28 03:01] LABS: Glucose Point of Care 122 mg/dL (70-110)
[2021-01-28 03:01] LABS: Glucose Point of Care 155 mg/dL (70-110)
[2021-01-28 03:01] LABS: Glucose Point of Care 91 mg/dL (70-110)
[2021-01-28 03:01] LABS: Glucose Point of Care 106 mg/dL (70-110)
[2021-01-28 03:01] LABS: Glucose Point of Care 158 mg/dL (70-110)
[2021-01-28 03:01] LABS: Glucose Point of Care 76 mg/dL (70-110)
--- NOTE | 2021-01-28 04:20 | PC.NURSE ---
01/27/21 2300 -- Extubted with RT, placed on 4L NC. No distress noted, tolerated well.
[2021-01-28] MEDS: sodium chloride 0.9% 1,000 ML 75 ML IV ×2 (04:29→18:47)
[2021-01-28 04:48] LABS: Basophils % 0.1 %; Hematocrit 32.2 % (42.0-52.0); Hemoglobin 10.8 g/dL (11.7-16.6); Lymphocytes # 0.6 10^3/uL (0.8-4.8); Lymphocytes % 3.6 %; Mean Corpuscular HGB Conc 33.5 g/dL (30.0-36.0); Mean Corpuscular Hemoglobin 32.5 pg (28.0-34.0); Mean Platelet Volume 11.6 fL (7.4-10.4); Monocytes # 1.4 10^3/uL (0.2-0.9); Monocytes % 8.5 %; Neutrophils # 14.13 10^3/uL (1.8-7.7); Neutrophils % 87.5 %; Nucleated Red Blood Cells % 0 %; Platelet Count 108 10^3/cmm (130-400); Red Blood Count 3.32 10^6/uL (4.1-5.3); Red Cell Distribution Width 12.1 % (12.1-15.1); White Blood Count 16.2 10^3/uL (4.0-10.0)
[2021-01-28 05:01] LABS: INR 1.39 (0.8-1.2)
[2021-01-28 05:02] LABS: Partial Thromboplastin Time 35.3 SECONDS (23.9-36.7)
[2021-01-28 05:04] LABS: Blood Urea Nitrogen 14 mg/dL (8-23); Carbon Dioxide 22 mmol/L (22-29); Chloride 109 mmol/L (98-107); Glucose 90 mg/dL (65-115); Glucose Fasting 90 mg/dL (74-106); Magnesium 2.1 mg/dL (1.7-2.3); Osmolality Calculated 288 mOsm/kg (285-295); Sodium 139 mmol/L (136-145)
[2021-01-28 05:06] LABS: Anion Gap 12.1 (5-19); Potassium 4.1 mmol/L (3.5-5.1)
[2021-01-28] MEDS: HYDROcodone-acetaminophen 5-325 mg Tablet 1 TAB PO (05:22)
[2021-01-28] MEDS: lanolin oint 7 gm 1 APPLIC TOPICAL (05:45)
--- NOTE | 2021-01-28 06:00 | XRR_ITS ---
PROCEDURE INFORMATION: Exam: XR Chest Exam date and time: 01/28/2021 6:00 AM Age: 85 years old Clinical indication: Other: S/P cabg; Prior surgery; Surgery date: 3-7 days post-operative; Additional info: Pod#1 S/P cabg TECHNIQUE: Imaging protocol: XR of the chest. Views: 1 view. Total images: 1 COMPARISON: CR (CHEST, ) 01/27/2021 4:51 PM FINDINGS: Tubes, catheters and devices: There has been interval removal of the endotracheal tube.There has been interval removal of the enteric tube. Tubes and catheters are otherwise unchanged from the prior exam. Lungs: Interval worsening of left pleuroparenchymal disease. Right basilar pulmonary opacity is again noted and has shown slight interval worsening from the prior exam. Pleural spaces: No pneumothorax. Heart/Mediastinum: Heart size is stable when compared to the prior exam. Bones/joints: Osseous structures are unchanged from the prior exam. Other findings: Stable postsurgical changes. XR/XR chest 1V portable [id number] IMPRESSION: 1. There has been interval removal of the endotracheal tube.There has been interval removal of the enteric tube. Tubes and catheters are otherwise unchanged from the prior exam. 2. Interval worsening of left pleuroparenchymal disease. 3. Right basilar pulmonary opacity is again noted and has shown slight interval worsening from the prior exam.
--- NOTE | 2021-01-28 07:04 | P.PN_ITS ---
Subjective Subjective: Interval history: Postop day #1 status post CABG x2. Uneventful night. Occasional PACs and PVCs. Chest tube output about 70 cc since surgery. Most appeared to be dark and coming for the mediastinal drains with a low volume in the pleural drains. I suspect this is most probably related to bleeding from the sternum which was substantially osteoporotic. Chest x-ray shows decreased lung volumes bilaterally consistent with for inspiratory effort. He will need aggressive pulmonary toilet. Mediastinum is stable. There is a small left pleural effusion. CBC and BMP are adequate. Total input and output is up approximately 2 L. Vitals/I&O/Wt Last Vital Signs Temp 97.9 F 01/27/21 03:33 Pulse 97 01/28/21 06:30 Resp 21 H 01/28/21 06:30 BP 120/76 01/28/21 06:30 Pulse Ox 94 01/28/21 06:30 01/27/21 01/28/21 01/28/21 22:59 06:59 14:59 Intake Total 750 / 5490 1310 / 6800 Output Total 2570 / 3360 1011 / 4371 Balance -1820 / 2130 299 / 2429 Weight last 48 hrs Weight 180 lb 11.2 oz Physical Exam Chest: COMMONS NORMALS: normal inspection of the chest OTHER: Chest wall is stable. Support lines are in position. Resp: COMMON NORMALS: negative for clear to auscultation bilaterally EFFORT & INSPECTION: Yes able to speak in complete sentences, Yes symmetric chest movement and No respiratory distress AUSCULTATION: not clear to auscultation bilaterally and diminished lung sounds bilateral in the lower lung sheppard Cardio: COMMON NORMALS: regular rate, regular rhythm and S1 normal heart sound present RATE: regular rate RHYTHM: regular rhythm HEART SOUNDS: S1 normal heart sound present Extremity: OTHER: Positive edema 1-2+ in the upper and lower extremities consistent with volume expansion. Urinary Catheter Management^: Bar: Cath Placed During This Visit: yes Reason for Continuing Indwelling Catheter: Accurate Measurement of Urinary Output in Critically Ill Patients Urinary Catheter Date of Insertion: 01/27/21 Urinary Catheter Time of Insertion: 07:00 Data : 01/28/21 04:10 01/28/21 04:10 A&P Assessment and plan (1) Status post aorto-coronary artery bypass graft: Postop day #1 status post CABG x2 secondary to left main stenosis Volume expansion Plan: DC Rajiv and [place]ords[place]. Lasix 20 mg IV x1. Metoprolol 25 mg p.o. twice daily. Amiodarone initiate initial 1 mg per 6 hours then maintenance IV dosing. CBC, BMP, chest x-ray in a.m. BMP at 2 PM today Out of bed in chair Status: Acute Attestations Medical Necessity Statement*: Postop day #1 status post CABG Time Spent in Patient Care: 16 - 35 minutes Procedures Arterial Line Size (Gauge): 20 Coding Level of Care Code Acute Last Pattern Grader for Chg Fwd Diagnoses Status post aorto-coronary artery bypass graft Z95.1
[2021-01-28] MEDS: morphine 4 mg/mL SDV 1 mL 2 MG IVP ×3 (07:11→14:27)
[2021-01-28] MEDS: FUROsemide 10 mg/mL SDV 2mL 20 MG IVP (07:11)
[2021-01-28] MEDS: carbidopa-levodopa 25-100mg Tablet 1 EACH PO ×3 (08:02→20:46)
[2021-01-28] MEDS: vancomycin 1,000 MG in sodium chloride 0.9% 250 ML 250 MG IV ×2 (08:02→20:55)
[2021-01-28] MEDS: metoprolol tartrate 25 mg Tablet PO ×2 (08:02→20:46)
[2021-01-28] MEDS: oxyCODONE-APAP 5-325 mg Tablet PO ×2 (08:03→15:24)
[2021-01-28] MEDS: pantoprazole DR 40 mg Tablet PO (08:03)
[2021-01-28] MEDS: aspirin 81 mg Chew Tablet PO (08:03)
[2021-01-28 08:04] LABS: Glucose Point of Care 93 mg/dL (70-110)
[2021-01-28 08:04] LABS: Glucose Point of Care 88 mg/dL (70-110)
[2021-01-28 08:04] LABS: Glucose Point of Care 83 mg/dL (70-110)
[2021-01-28 08:04] LABS: Glucose Point of Care 85 mg/dL (70-110)
[2021-01-28] MEDS: chlorhexidine gluconate 0.12% Btl 473 mL 15 ML MUCOUS MEM ×2 (08:04→17:19)
[2021-01-28] MEDS: mupirocin oint 22 gm 1 APPLIC NASAL ×2 (08:07→17:19)
--- NOTE | 2021-01-28 10:19 | PC.NURSE ---
D/C cordis and Hendley Cordis and Hendley pulled per Dr Lamas orders. Pt tolerated well and only one beat PVC noted.
--- NOTE | 2021-01-28 11:25 | PC.NURSE ---
TO Chair Pt up to chair with the help of PT.
[2021-01-28 12:07] LABS: Glucose Point of Care 111 mg/dL (70-110)
[2021-01-28 12:07] LABS: Glucose Point of Care 93 mg/dL (70-110)
[2021-01-28 12:07] LABS: Glucose Point of Care 92 mg/dL (70-110)
[2021-01-28 12:07] LABS: Glucose Point of Care 89 mg/dL (70-110)
[2021-01-28 12:07] LABS: Glucose Point of Care 95 mg/dL (70-110)
--- NOTE | 2021-01-28 12:50 | PC.NUTR ---
Nutrition Note for MD consult regarding nutrition education post CABG. Twice visited Pt's room but of patient not there. Will attempt heart healthy education in next 2 days prior to DC when Pt more alert and is present.
[2021-01-28 13:25] LABS: Glucose Point of Care 98 mg/dL (70-110)
[2021-01-28 14:09] LABS: ABG PCO2 37.2 mmHg (35-45); ABG PCO2 38.7 mmHg (35-45); ABG PCO2 40.8 mmHg (35-45); ABG PH Result 7.33 (7.35-7.45); ABG PH Result 7.39 (7.35-7.45); ABG PH Result 7.43 (7.35-7.45); Arterial Blood Gas Hematocrit 25.3 % (42-52); Arterial Blood Gas Hematocrit 25.7 % (42-52); Arterial Blood Gas Hematocrit 33.9 % (42-52); Base Excess ABG -1.6 mmol/L (-2.0-2.0); Base Excess ABG -4.2 mmol/L (-2.0-2.0); Base Excess ABG 0.5 mmol/L (-2.0-2.0); Blood Gas Sample Type Arterial; Carboxyhemoglobin 1.1 %THgb (0.4-20.1); Carboxyhemoglobin 1.2 %THgb (0.4-20.1); Carboxyhemoglobin 1.3 %THgb (0.4-20.1); HCO3 ABG 21.5 mmol/L (22-26); HCO3 ABG 23.2 mmol/L (22-26); HCO3 ABG 24.7 mmol/L (22-26); HGB O2 Sat 97.9 % (95-100); HGB O2 Sat 98.4 % (95-100); HGB O2 Sat 98.9 % (95-100); Ionized Calcium Level - ABG 1.1 mmol/L (1.1-1.4); Methemoglobin 0.5 % (0.4-1.5); Methemoglobin 0.7 % (0.4-1.5); Oxygen Saturation ABG 99.5; Oxygen Saturation ABG > 100.0; Potassium Level - ABG 4.1 mmol/L (3.5-5.0); Potassium Level - ABG 4.8 mmol/L (3.5-5.0); Potassium Level - ABG 5.1 mmol/L (3.5-5.0); Total Hemoglobin 11.1 g/dL (14-18); Total Hemoglobin 8.3 g/dL (14-18); Total Hemoglobin 8.4 g/dL (14-18)
[2021-01-28 14:10] LABS: ABG PCO2 35.4 mmHg (35-45); ABG PCO2 38.7 mmHg (35-45); ABG PCO2 39.1 mmHg (35-45); ABG PCO2 40.1 mmHg (35-45); ABG PH Result 7.33 (7.35-7.45); ABG PH Result 7.34 (7.35-7.45); ABG PH Result 7.39 (7.35-7.45); ABG PH Result 7.41 (7.35-7.45); Alveolar-Arterial Oxygen Gradi 1.3 mmHg (5-10); Alveolar-Arterial Oxygen Gradi 6.2 mmHg (5-10); Arterial Blood Gas Hematocrit 24.8 % (42-52); Arterial Blood Gas Hematocrit 25.2 % (42-52); Arterial Blood Gas Hematocrit 25.3 % (42-52); Arterial Blood Gas Hematocrit 31.9 % (42-52); Base Excess ABG -1.5 mmol/L (-2.0-2.0); Base Excess ABG -1.7 mmol/L (-2.0-2.0); Base Excess ABG -4.1 mmol/L (-2.0-2.0); Base Excess ABG -4.6 mmol/L (-2.0-2.0); Blood Gas Sample Type Arterial; Carboxyhemoglobin 1.2 %THgb (0.4-20.1); Carboxyhemoglobin 1.4 %THgb (0.4-20.1); Carboxyhemoglobin 1.5 %THgb (0.4-20.1); HCO3 ABG 21.1 mmol/L (22-26); HCO3 ABG 21.3 mmol/L (22-26); HCO3 ABG 22.6 mmol/L (22-26); HCO3 ABG 23.3 mmol/L (22-26); HGB O2 Sat 87.8 % (95-100); HGB O2 Sat 95.8 % (95-100); HGB O2 Sat 96.3 % (95-100); HGB O2 Sat 98.9 % (95-100); Ionized Calcium Level - ABG 1.2 mmol/L (1.1-1.4); Ionized Calcium Level - ABG 1.3 mmol/L (1.1-1.4); Methemoglobin 0.6 % (0.4-1.5); Methemoglobin 0.7 % (0.4-1.5); Methemoglobin 0.8 % (0.4-1.5); Oxygen Saturation ABG 89.7; Oxygen Saturation ABG 98.5; Oxygen Saturation ABG > 100.0; PO2 ABG 53.9 mmHg (80.0-100.0); PO2 ABG 89.6 mmHg (80.0-100.0); Potassium Level - ABG 4.2 mmol/L (3.5-5.0); Potassium Level - ABG 4.4 mmol/L (3.5-5.0); Potassium Level - ABG 4.6 mmol/L (3.5-5.0); Potassium Level - ABG 4.8 mmol/L (3.5-5.0); Total Hemoglobin 10.4 g/dL (14-18); Total Hemoglobin 8.1 g/dL (14-18); Total Hemoglobin 8.2 g/dL (14-18); Total Hemoglobin 8.3 g/dL (14-18)
[2021-01-28 14:22] LABS: Blood Gas Sample Site Not specified
[2021-01-28 14:25] LABS: Blood Gas Sample Site Not specified
[2021-01-28 14:29] LABS: Blood Gas Sample Type Venous
[2021-01-28 14:30] LABS: Blood Gas Sample Site Not specified
[2021-01-28 14:34] LABS: Blood Gas Sample Site Not specified
[2021-01-28 14:35] LABS: Blood Gas Sample Site Not specified
[2021-01-28 14:39] LABS: ABG PCO2 39.5 mmHg (35-45); ABG PH Result 7.36 (7.35-7.45); Arterial Blood Gas Hematocrit 35.6 % (42-52); Base Excess ABG -2.8 mmol/L (-2.0-2.0); Blood Gas Sample Site Not specified; Blood Gas Sample Type Arterial; Carboxyhemoglobin 1.2 %THgb (0.4-20.1); HCO3 ABG 22.4 mmol/L (22-26); HGB O2 Sat 98.6 % (95-100); Ionized Calcium Level - ABG 1.1 mmol/L (1.1-1.4); Methemoglobin 0.3 % (0.4-1.5); Oxygen Saturation ABG > 100.0; Potassium Level - ABG 3.6 mmol/L (3.5-5.0); Total Hemoglobin 11.6 g/dL (14-18)
[2021-01-28 15:04] LABS: Glucose Point of Care 80 mg/dL (70-110)
[2021-01-28 15:25] LABS: Anion Gap 11.1 (5-19); Blood Urea Nitrogen 17 mg/dL (8-23); Calcium 8.2 mg/dL (8.5-10.5); Carbon Dioxide 24 mmol/L (22-29); Chloride 106 mmol/L (98-107); Glucose 86 mg/dL (65-115); Osmolality Calculated 285 mOsm/kg (285-295); Potassium 4.1 mmol/L (3.5-5.1); Sodium 137 mmol/L (136-145)
[2021-01-28 16:22] LABS: Glucose Point of Care 87 mg/dL (70-110)
[2021-01-28 17:17] LABS: Glucose Point of Care 90 mg/dL (70-110)
[2021-01-28 18:17] LABS: Glucose Point of Care 80 mg/dL (70-110)
--- NOTE | 2021-01-28 19:24 | PC.NURSE ---
insulin increased to 1,4 ml/hr per protocol, new bag on jul unable to scan current bag,
--- NOTE | 2021-01-28 19:29 | PC.NURSE ---
Dr. Lamas at bedside, no n.o. at this time
[2021-01-28 20:11] LABS: Glucose Point of Care 84 mg/dL (70-110)
[2021-01-28 20:11] LABS: Glucose Point of Care 73 mg/dL (70-110)
[2021-01-28] MEDS: atorvastatin 40 mg Tablet 20 MG PO (20:45)
--- NOTE | 2021-01-28 20:48 | PC.NURSE ---
blood glucose 72 while on insulin drip and clear liquid diet reported to Dr. Lamas tkyler to stop insulin drip and start D5w
[2021-01-28] MEDS: dextrose 5% 1,000 ML 30 ML IV (21:04)
--- NOTE | 2021-01-28 21:04 | P.PN_ITS ---
Subjective Subjective: Interval history: Day 2 patient was extubated last night. Overall doing fine except some drainage from the chest tube which surgery thinks suspicious for sternal bleed continue to monitor Medications: Reviewed: Yes Vitals/I&O/Wt Last Vital Signs Temp 97.9 F 01/27/21 03:33 Pulse 77 01/28/21 20:04 Resp 21 H 01/28/21 20:04 BP 131/67 01/28/21 12:45 Pulse Ox 92 01/28/21 20:04 01/28/21 01/28/21 01/28/21 06:59 14:59 22:59 Intake Total 1310 / 6800 37166 / 84639 5800 / 35601 Output Total 1011 / 4371 2835 / 2835 730 / 3565 Balance 299 / 2429 7175 / 7175 5070 / 22535 Weight last 48 hrs Weight 180 lb 11.2 oz Physical Exam Narrative: EXAM NARRATIVE: GENERAL: Patient is awake follows the command NECK: No jugular vein distension. HEENT: No cyanosis. No icterus. No pallor. HEART: Regular S1 and S2. No murmur, rub or gallop. LUNGS: Clear to auscultate bilaterally. ABDOMEN: Soft, nontender and nondistended. Positive bowel sounds. No guarding, rebound or tenderness. CENTRAL NERVOUS SYSTEM: Cannot assess due to sedation EXTREMITIES: Lower extremities without edema bilaterally. Const: COMMON NORMALS: alert Resp: COMMON NORMALS: clear to auscultation bilaterally AUSCULTATION: clear to auscultation bilaterally Neuro: SENSORIUM/ORIENTATION: Yes alert Urinary Catheter Management^: Bar: Cath Placed During This Visit: yes Reason for Continuing Indwelling Catheter: Accurate Measurement of Urinary Output in Critically Ill Patients Urinary Catheter Date of Insertion: 01/27/21 Urinary Catheter Time of Insertion: 07:00 Data : 01/28/21 04:10 01/28/21 14:44 A&P Assessment and plan (1) Status post aorto-coronary artery bypass graft: Surgery initiated Lasix and beta-ayaz and amiodarone for postop A. fib. Continue as per surgery Status: Acute (2) Hypertension: Well-controlled. Status: Acute Qualifiers: Hypertension type: essential hypertension Qualified Code(s): I10 - Essential (primary) hypertension (3) Dyslipidemia: Continue statin Status: Acute Attestations Medical Necessity Statement*: Patient require continuation hospitalization for above defined care. 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
[2021-01-28 22:47] LABS: Glucose Point of Care 103 mg/dL (70-110)
[2021-01-28] MEDS: nitroglycerin drip 50 MG/250 ML PREMIX IV (23:14)
--- NOTE | 2021-01-28 23:16 | PC.NURSE ---
required Nitro drip briefly per protocol
[2021-01-29] VITALS (8 sets, daily range): PULSE 61–79; RESP 16–20; O2SAT 92–93
[2021-01-29 04:19] LABS: Basophils % 0.2 %; Hematocrit 30.9 % (42.0-52.0); Hemoglobin 10.2 g/dL (11.7-16.6); Lymphocytes % 5.8 %; Mean Corpuscular Hemoglobin 32.7 pg (28.0-34.0); Mean Platelet Volume 11.7 fL (7.4-10.4); Monocytes # 1.5 10^3/uL (0.2-0.9); Monocytes % 8.5 %; Neutrophils # 14.96 10^3/uL (1.8-7.7); Nucleated Red Blood Cells % 0 %; Platelet Count 108 10^3/cmm (130-400); Red Blood Count 3.12 10^6/uL (4.1-5.3); Red Cell Distribution Width 12.4 % (12.1-15.1); White Blood Count 17.6 10^3/uL (4.0-10.0)
[2021-01-29 04:39] LABS: Anion Gap 13.2 (5-19); Blood Urea Nitrogen 19 mg/dL (8-23); Calcium 8.1 mg/dL (8.5-10.5); Carbon Dioxide 22 mmol/L (22-29); Chloride 105 mmol/L (98-107); Glucose 127 mg/dL (65-115); Osmolality Calculated 286 mOsm/kg (285-295); Potassium 4.2 mmol/L (3.5-5.1); Sodium 136 mmol/L (136-145)
--- NOTE | 2021-01-29 06:00 | XR_ITS ---
WS: [id number] Portable AP semiupright chest, 01/29/2021 Clinical Data: POD#2 s/p CABG Comparison: Portable chest, 01/28/2021 Findings: The right internal jugular venous catheter, mediastinal tubes and left chest tube remain in the same position. The left basilar opacity has not changed. The heart size remains the same. [place]lin e sternotomy sutures and mediastinal clips are noted. Monitor leads are on the chest wall. XR/XR chest 1V portable [id number] Impression: No change from yesterday's portable chest.
[2021-01-29 06:11] LABS: Glucose Point of Care 143 mg/dL (70-110)
--- NOTE | 2021-01-29 06:19 | PC.NURSE ---
attempted to remove foly catheter per order, patient refused at this time
--- NOTE | 2021-01-29 06:27 | PC.NURSE ---
Dr. Lamas at bedside, informed this nurse he will put in orders to D/C ART line and transition to PO amio and restart home meds
--- NOTE | 2021-01-29 06:56 | PM.PN ---
Subjective Subjective: Interval history: Postop day #2 status post CABG. Uneventful night. Sitting up in the bed on rounds. Chest tube output approximate 220 cc past 24 hours. Approximately 100 cc overnight. Vital signs are stable. No arrhythmias reported. Will still need aggressive pulmonary toilet. Intake and output appears to be an entry error on the intake side. It appears that his balance is probably about even though I believe he is probably still modestly volume overloaded overall related to his peripheral edema and his chest x-ray. Vitals/I&O/Wt Last Vital Signs Temp 97.9 F 01/27/21 03:33 Pulse 70 01/29/21 06:00 Resp 21 H 01/28/21 20:04 BP 131/67 01/28/21 12:45 Pulse Ox 92 01/28/21 20:04 01/28/21 01/28/21 01/29/21 14:59 22:59 06:59 Intake Total 51270 / 45205 5800 / 15927 985.25 / 22349.25 Output Total 2835 / 2835 730 / 3565 600 / 4165 Balance 7175 / 7175 5070 / 30109 385.25 / 42136.25 Weight last 48 hrs Weight 173 lb Weight 180 lb 11.2 oz Physical Exam Chest: COMMONS NORMALS: normal inspection of the chest (Support lines and wound VAC dressing remain in place. Chest wall stable.) Resp: OTHER: Improving inspiratory effort though still with basilar crackles. Cardio: COMMON NORMALS: regular rate, regular rhythm and S1 normal heart sound present RATE: regular rate RHYTHM: regular rhythm HEART SOUNDS: S1 normal heart sound present Extremity: OTHER: Peripheral edema is slowly improving. Neuro: COMMON NORMALS: no focal motor deficits and no sensory deficits noted Urinary Catheter Management^: Bar: Cath Placed During This Visit: yes Reason for Continuing Indwelling Catheter: Accurate Measurement of Urinary Output in Critically Ill Patients Urinary Catheter Date of Insertion: 01/27/21 Urinary Catheter Time of Insertion: 07:00 Data : 01/29/21 03:52 01/29/21 03:52 A&P Assessment and plan (1) Status post aorto-coronary artery bypass graft: Postop day #2 status post CABG. Plan: DC IV amiodarone. P.o. amiodarone 200 mg twice daily. Amlodipine 10 mg daily. Resume isosorbide 30 mg extended release daily. DC arterial line. DC IV insulin. Out of bed in chair. Lasix 20 mg IV. CBC, BMP, chest x-ray in a.m. Greatly appreciate expertise and oversight of Dr. Austin. Status: Acute Attestations Medical Necessity Statement*: POD #2 status post CABG Time Spent in Patient Care: less than 15 minutes Procedures Arterial Line Size (Gauge): 20 Coding Level of Care Code Acute Paper Rewinder Operator for Chg Fwd Diagnoses Status post aorto-coronary artery bypass graft Z95.1
[2021-01-29] MEDS: FUROsemide 10 mg/mL SDV 2mL 20 MG IVP (08:25)
[2021-01-29] MEDS: amiodarone 200 mg Tablet PO ×2 (08:26→18:14)
[2021-01-29] MEDS: pantoprazole DR 40 mg Tablet PO (08:26)
[2021-01-29] MEDS: carbidopa-levodopa 25-100mg Tablet 1 EACH PO ×3 (08:26→20:21)
[2021-01-29] MEDS: vancomycin 1,000 MG in sodium chloride 0.9% 250 ML 250 MG IV (08:26)
[2021-01-29] MEDS: isosorbide mononitrate ER 30 mg Tablet PO (08:26)
[2021-01-29] MEDS: oxyCODONE-APAP 5-325 mg Tablet PO ×2 (08:26→13:39)
[2021-01-29] MEDS: amlodipine 10 mg Tablet PO (08:26)
[2021-01-29] MEDS: aspirin 81 mg Chew Tablet PO (08:26)
[2021-01-29] MEDS: metoprolol tartrate 25 mg Tablet PO ×2 (08:29→20:20)
[2021-01-29] MEDS: chlorhexidine gluconate 0.12% Btl 473 mL 15 ML MUCOUS MEM ×2 (08:29→18:14)
[2021-01-29] MEDS: mupirocin oint 22 gm 1 APPLIC NASAL ×2 (08:30→18:14)
[2021-01-29] MEDS: ondansetron 2 mg/ML SDV 2 mL 4 MG IVP (09:30)
--- NOTE | 2021-01-29 10:08 | PC.CHAP ---
Pastoral Care Encounter/Spiritual Assessment Type of Contact [] Declined chief compressor station engineer visit [] Patient/Family/Request visit [] Outpatient visit [] Follow-up visit [] Physician referral [] Code/Alert [x] Routine visit [] Staff referral [] Actively dying [] Patient sleeping [] Family support [] [] Out of room [] Palliative care [] [x] Receiving care in room [] Pre-surgical visit [] Trauma [] Long length of stay [x] ICU visit [] Other: Relational/Emotional Strength [] Patient feels connected with others/family/visitors/staff [] Distress [] Loneliness/isolation [] Abandonment Spirituality of Patient [] Person of Christel [] Attends Anabaptist of their Christel [] Believes in Prayer [] Reads Bible or Hoahaoism materials [] There are Spiritual issues to be addressed [employer] Cutter Interventions x] Prayer [] Active listening [] Non-anxious presence [] Spiritual/emotional support [] Crisis/trauma care [] Spiritual counseling [] Bereavement support [] Provided bereavement packet [] Provided Bible/devotional materials [] Provided toy/stuffed animal, coloring book to patient or family member [] Provided Communion [] Anointing/[place] [] Salvation [x] Completed spiritual assessment [] Other: Impact on Illness or Injury [] Angry [] Fearful [] Anxious [] Often cries [] Exhaustion [] Unable to work [] Unable to attend anabaptism [] Unable to walk/stand [] Unable to read [] Unable to drive [] Unable to eat/drink [] Unable to sleep [] Unable to be with family [] Patient intubated [] Other: Summary Time spent with patient
[2021-01-29] MEDS: HYDROcodone-acetaminophen 5-325 mg Tablet 1 TAB PO (16:20)
[2021-01-29] MEDS: FUROsemide 40 mg Tablet PO (18:14)
[2021-01-29] MEDS: atorvastatin 40 mg Tablet 20 MG PO (20:20)
--- NOTE | 2021-01-29 21:32 | P.PN_ITS ---
Subjective Subjective: Interval history: Patient walked around today feeling nauseated blood pressure borderline otherwise stable appeared to be in sinus rhythm Medications: Reviewed: Yes Vitals/I&O/Wt Last Vital Signs Temp 97.9 F 01/27/21 03:33 Pulse 72 01/29/21 17:14 Resp 16 01/29/21 17:11 BP 131/67 01/28/21 12:45 Pulse Ox 92 01/29/21 17:11 01/29/21 01/29/21 01/29/21 06:59 14:59 22:59 Intake Total 985.25 / 96006.25 830 / 830 518 / 1348 Output Total 600 / 4165 0 / 0 810 / 810 Balance 385.25 / 98899.25 830 / 830 -292 / 538 Weight last 48 hrs Weight 173 lb Weight 180 lb 11.2 oz Physical Exam Narrative: EXAM NARRATIVE: GENERAL: Patient is awake sitting in the chair appear to be NECK: No jugular vein distension. HEENT: No cyanosis. No icterus. No pallor. HEART: Regular S1 and S2. No murmur, rub or gallop. LUNGS: Clear to auscultate bilaterally. ABDOMEN: Soft, nontender and nondistended. Positive bowel sounds. No guarding, rebound or tenderness. CENTRAL NERVOUS SYSTEM: Cannot assess due to sedation EXTREMITIES: Lower extremities without edema bilaterally. Const: COMMON NORMALS: alert Resp: COMMON NORMALS: clear to auscultation bilaterally AUSCULTATION: clear to auscultation bilaterally Neuro: SENSORIUM/ORIENTATION: Yes alert Urinary Catheter Management^: Bar: Cath Placed During This Visit: yes Reason for Continuing Indwelling Catheter: Accurate Measurement of Urinary Output in Critically Ill Patients Urinary Catheter Date of Insertion: 01/27/21 Urinary Catheter Time of Insertion: 07:00 Data : 01/29/21 03:52 01/29/21 03:52 A&P Assessment and plan (1) Status post aorto-coronary artery bypass graft: Appear to be stable from a coronary disease perspective today patient has walked around. We agree with surgery treatment and optimization of medicine. Status: Acute (2) Hypertension: Well-controlled continue medicine Status: Acute Qualifiers: Hypertension type: essential hypertension Qualified Code(s): I10 - Essential (primary) hypertension Attestations Medical Necessity Statement*: Patient require continuation hospitalization for the above defined care Procedures Arterial Line Size (Gauge): 20 Coding Level of Care Code Established Pt Acute Occupational Physician for Chg Fwd Patient Type Established History Expanded Problem Focused Exam Expanded Problem Focused Medical Decision Making Moderate Complexity Diagnoses Status post aorto-coronary artery bypass graft Z95.1 Hypertension I10 Hypertension type: essential hypertension
[2021-01-30] VITALS (41 sets, daily range): BP systolic 96–132; BP diastolic 53–71; PULSE 62–85; RESP 15–32; TEMP 36.8; O2SAT 91–96
[2021-01-30] MEDS: lactulose oral liq 20 gm/30 mL UDC PO (01:30)
--- NOTE | 2021-01-30 02:39 | PC.NURSE ---
attempted multiple times for BM, PRN lactulose administered
[2021-01-30] MEDS: fentaNYL 50 mcg/mL INJ 2mL IVP (04:28)
[2021-01-30 05:01] LABS: Basophils % 0.2 %; Eosinophils % 0.2 %; Hematocrit 31.8 % (42.0-52.0); Hemoglobin 10.3 g/dL (11.7-16.6); Lymphocytes # 0.8 10^3/uL (0.8-4.8); Lymphocytes % 4.5 %; Mean Corpuscular HGB Conc 32.4 g/dL (30.0-36.0); Mean Corpuscular Hemoglobin 32.5 pg (28.0-34.0); Mean Corpuscular Volume 100.3 fl (80-94); Mean Platelet Volume 11.5 fL (7.4-10.4); Monocytes # 1.3 10^3/uL (0.2-0.9); Monocytes % 7.9 %; Neutrophils # 14.47 10^3/uL (1.8-7.7); Neutrophils % 86.4 %; Nucleated Red Blood Cells % 0 %; Platelet Count 117 10^3/cmm (130-400); Red Blood Count 3.17 10^6/uL (4.1-5.3); Red Cell Distribution Width 12.2 % (12.1-15.1); White Blood Count 16.7 10^3/uL (4.0-10.0)
[2021-01-30 05:17] LABS: Anion Gap 14.7 (5-19); Blood Urea Nitrogen 31 mg/dL (8-23); Calcium 8.4 mg/dL (8.5-10.5); Carbon Dioxide 22 mmol/L (22-29); Chloride 102 mmol/L (98-107); Glucose 175 mg/dL (65-115); Osmolality Calculated 291 mOsm/kg (285-295); Potassium 3.7 mmol/L (3.5-5.1); Sodium 135 mmol/L (136-145)
[2021-01-30] MEDS: dextrose 5% 1,000 ML 30 ML IV (05:50)
--- NOTE | 2021-01-30 06:00 | XR_ITS ---
WS: [id number] Portable AP semiupright chest, 01/30/2021 Clinical Data: POD#3 s/p cabg Comparison: Portable chest, 01/29/2021 Findings: Patchy bilateral pulmonary opacities have diminished slightly. The right internal jugular v enous catheter and mediastinal tubes remain in the same position. The left chest tube is no longer pr esent. The heart is normal. Midline sternotomy sutures are present. The aortic arch is tortuous. Luanne tor leads are on the chest wall. XR/XR chest 1V portable [id number] Impression: 1. Slight decrease in bilateral pulmonary opacities. 2. Removal of left chest tube.
--- NOTE | 2021-01-30 06:20 | PC.NURSE ---
removed Foly catheter, tolerated well
--- NOTE | 2021-01-30 06:21 | PC.NURSE ---
approximately 0430 PRN Fentanyl administered per order for back pain 01/17. approximately 0550 c/o of nausea PRN Zofran administered, 0600 c/o of lower abdominal pressure ureine noted to be leaking around catheter, abdominal pressure improved when foly was removed and urine came out
--- NOTE | 2021-01-30 06:47 | P.PN_ITS ---
Subjective Subjective: Interval history: Postop day #3 status post CABG. Developed atrial fibrillation early this morning with controlled ventricular rate. He had some nausea after receiving fentanyl. He also had some abdominal discomfort and appeared to have lower abdominal distention. It appears that the Bar catheter has become clogged and was removed with spontaneous voiding and relief of much of his discomfort. Chest x-ray is clearly improved though there is still less than ideal in spiratory effort, pulling only about 500 cc on incentive parameter. Left to be diaphragm appears obese slightly elevated, but he also has some large bowel gas noted below the diaphragm as well. Compression wrap removed from the left lower extremity. Vein harvest incisions are intact and healing well. White count still remains elevated however. Tube output is continued to decrease. Vitals/I&O/Wt Last Vital Signs Temp 97.9 F 01/27/21 03:33 Pulse 79 01/29/21 22:00 Resp 20 H 01/30/21 04:28 BP 131/67 01/28/21 12:45 Pulse Ox 94 01/30/21 04:28 01/29/21 01/29/21 01/30/21 14:59 22:59 06:59 Intake Total 830 / 830 518 / 1348 983 / 2331 Output Total 0 / 0 810 / 810 400 / 1210 Balance 830 / 830 -292 / 538 583 / 1121 Weight last 48 hrs Weight 175 lb Weight 173 lb Physical Exam Chest: OTHER: Wound VAC dressing remains in place. Chest wall is stable. Resp: OTHER: Diminished breath sounds in the bases though crackles appear to have cleared. Cardio: COMMON NORMALS: regular rate and S1 normal heart sound present; negative for regular rhythm (Slightly irregular rhythm.) RATE: regular rate RHYTHM: abnormal rhythm (Slightly irregular rhythm.) HEART SOUNDS: S1 normal heart sound present, no gallops and no murmurs OTHER: Monitor appears to show atrial fibrillation with controlled ventricular response. We will obtain an EKG. Extremity: OTHER: Still a bit of peripheral edema though improved. Urinary Catheter Management^: Bar: Cath Placed During This Visit: yes Reason for Continuing Indwelling Catheter: Accurate Measurement of Urinary Output in Critically Ill Patients Urinary Catheter Date of Insertion: 01/27/21 Urinary Catheter Time of Insertion: 07:00 Data : 01/30/21 04:40 09/23/21 04:40 A&P Assessment and plan (1) Status post aorto-coronary artery bypass graft: Postop day #3 status post CABG. Decreased chest tube output. Clearing chest x-ray. I will plan to discontinue chest tubes later this morning. Be off service after this morning. Dr. Austin will remain attending physician. I will seek medical assistance of our hospitalist or safety associate colleagues for continued medical management. I will return to service on February 03. Wound VAC dressing may be removed on postop day #5. May obtain the assistance of our surgical team if desired to assist with wound VAC removal. Would utilize Betadine along the incision line and bordered gauze dressings at removal of wound VAC with confirmation that there is no adhesive over the incision line or drain sites. This should be done daily. Status: Acute (2) Fibrillation, atrial: We will resume IV amiodarone. Hopefully, with removal of chest tubes, this will decrease cardiac irritation and help return to sinus rhythm. Would consider anticoagulation after removal of chest tubes later this morning. We will obtain a twelve-lead EKG to confirm. Status: Acute Attestations Medical Necessity Statement*: Postop day #3 status post CABG. Postop atrial fibrillation. Procedures Arterial Line Size (Gauge): 20 Coding Level of Care Code Acute Mender Hand for [facility] Fwd Diagnoses Status post aorto-coronary artery bypass graft Z95.1 Fibrillation, atrial I48.91
--- NOTE | 2021-01-30 06:53 | PC.NURSE ---
Dr. Lamas at bedside, noted patient to be in afib, gave v.o. to starte Amio IV at 0.5
--- NOTE | 2021-01-30 06:55 | ECG_ITS ---
[facility] Test Date: 2021-01-30 Pat Name: Jonathan Canales Department: Room: ICU10 Gender: Male Director Manufacturing Engineering: : [id number] Requested By: Kobi Monet Order Number: [id number] Aleks MD: Daron Onofre M.D. Measurements Intervals [place] Rate: 80 P: 46 DE: 277 QRS: 7 QRSD: 96 T: 11 QT: 301 QTc: 348 Interpretive Statements SINUS RHYTHM WITH FIRST DEGREE AV BLOCK NONSPECIFIC T-WAVE ABNORMALITY Compared to ECG 01/27/2021 14:23:18 No significant changes Electronically Signed On 01-30-2021 20:39:40 CDT by Daron Onofre M.D. [email or web address]
--- NOTE | 2021-01-30 07:30 | PC.NURSE ---
Chest tubes removed per Dr. Monet. Pt tolerated well.
--- NOTE | 2021-01-30 07:58 | P.MISC_ITS ---
Miscellaneous Note Purpose of Documentation: Twelve-lead EKG revealed sinus rhythm with first- degree AV block which is at baseline. Indeed, the monitor also appears different than when I made rounds earlier this morning. I have removed his mediastinal drains and left pleural drain. Drain sites are well approximated. With the nurses notes of a brief period of what appear to be bradycardia versus heart block with a heart rate in the 40s, I have elected to leave the temporary ground wire and right ventricular pacing wire in position. His cough is clearly more affected this morning. Hopefully with removal of the drains this will allow for better inspiratory effort of a more rapid return of GI function and resolution of nausea, and for ease of mobility. Bar catheter has also been removed. I recommend we also remove the central line when we have confirmed there is adequate peripheral IVs established.
--- NOTE | 2021-01-30 08:18 | PM.MISC ---
Miscellaneous Note Purpose of Documentation: Dr. Skinner has graciously agreed to assist and provide his expertise with medical management of Mr. Canales. I reviewed with him at bedside Mr. Canales's Hospital course and condition today. Overall, I feel he is making really good progress given his age, though there is some concern for his continued leukocytosis, despite remaining afebrile. I will notify Dr. Austin of Dr. Skinner's participation with Mr. Canales's care.
[2021-01-30] MEDS: carbidopa-levodopa 25-100mg Tablet 1 EACH PO ×3 (09:44→20:19)
[2021-01-30] MEDS: isosorbide mononitrate ER 30 mg Tablet PO (09:44)
[2021-01-30] MEDS: amlodipine 10 mg Tablet PO (09:44)
[2021-01-30] MEDS: pantoprazole DR 40 mg Tablet PO (09:44)
[2021-01-30] MEDS: amiodarone 200 mg Tablet PO ×2 (09:44→18:46)
[2021-01-30] MEDS: aspirin 81 mg Chew Tablet PO (09:44)
[2021-01-30] MEDS: metoprolol tartrate 25 mg Tablet PO ×2 (09:45→20:18)
[2021-01-30] MEDS: chlorhexidine gluconate 0.12% Btl 473 mL 15 ML MUCOUS MEM ×2 (09:50→18:46)
[2021-01-30] MEDS: mupirocin oint 22 gm 1 APPLIC NASAL ×2 (09:50→19:17)
--- NOTE | 2021-01-30 11:19 | P.PN_ITS ---
Subjective Subjective: Interval history: Feeling better today heart rate is under control denies any complaint Medications: Reviewed: Yes Vitals/I&O/Wt Last Vital Signs Temp 97.9 F 01/27/21 03:33 Pulse 71 01/30/21 05:00 Resp 20 H 01/30/21 04:28 BP 131/67 01/28/21 12:45 Pulse Ox 94 01/30/21 04:28 01/29/21 01/30/21 01/30/21 22:59 06:59 14:59 Intake Total 518 / 1348 983 / 2331 Output Total 810 / 810 400 / 1210 300 / 300 Balance -292 / 538 583 / 1121 -300 / -300 Weight last 48 hrs Weight 175 lb Weight 173 lb Physical Exam Narrative: EXAM NARRATIVE: GENERAL: Patient is awake sitting in the chair appear to be NECK: No jugular vein distension. HEENT: No cyanosis. No icterus. No pallor. HEART: Regular S1 and S2. No murmur, rub or gallop. LUNGS: Clear to auscultate bilaterally. ABDOMEN: Soft, nontender and nondistended. Positive bowel sounds. No guarding, rebound or tenderness. CENTRAL NERVOUS SYSTEM: Cannot assess due to sedation EXTREMITIES: Lower extremities without edema bilaterally. Const: COMMON NORMALS: alert Resp: COMMON NORMALS: clear to auscultation bilaterally AUSCULTATION: clear to auscultation bilaterally Neuro: SENSORIUM/ORIENTATION: Yes alert Urinary Catheter Management^: Bar: Cath Placed During This Visit: yes Reason for Continuing Indwelling Catheter: Accurate Measurement of Urinary Output in Critically Ill Patients Urinary Catheter Date of Insertion: 01/27/21 Urinary Catheter Time of Insertion: 07:00 Data : 01/30/21 04:40 01/30/21 04:40 A&P Assessment and plan (1) Status post aorto-coronary artery bypass graft: Stable doing fine from current disease perspective. Continue current regimen patient is on beta-ayaz. Status: Acute (2) Fibrillation, atrial: Patient is back to sinus rhythm continue amiodarone 200 mg twice a day for now after 1 week we will reduce it to 20 mg once a day. Continue aspirin full dose since it was for brief periods of tiime no need to put him on anticoagulat ion. Status: Acute (3) Hypertension: Well-controlled continue medicine Status: Acute Qualifiers: Hypertension type: essential hypertension Qualified Code(s): I10 - Essential (primary) hypertension (4) Renal dysfunction: Most likely due to diuresis will hold diuretics for now. Status: Acute Attestations Medical Necessity Statement*: Patient require continuation hospitalization for above defined care. Procedures Arterial Line Size (Gauge): 20 Coding Level of Care Code Established Pt Acute Milled Rubber Tender for Chg Fwd Patient Type Established History Detailed Exam Detailed Medical Decision Making Moderate Complexity Diagnoses Status post aorto-coronary artery bypass graft Z95.1 Fibrillation, atrial I48.91 Hypertension I10 Hypertension type: essential hypertension Renal dysfunction N28.9
--- NOTE | 2021-01-30 14:07 | PC.NUTR ---
Nutrition note: Previous nutrition consult received d/t open heart surgery. Pt remains on ICU at this time, will attempt heart healthy education when status improved and on medical floor.
--- NOTE | 2021-01-30 14:54 | PC.SOCIAL ---
IMM UPdated Page 2 of IMM updated, reviewed and placed in chart. Initialed, timed and dated.
[2021-01-30 15:35] LABS: Glucose Point of Care 140 mg/dL (70-110)
[2021-01-30] MEDS: lanolin oint 7 gm 1 APPLIC TOPICAL (18:46)
--- NOTE | 2021-01-30 19:21 | P.CONIM_ITS ---
Providers/Reason For Consult Consulting Physician/Specialty*: Ky Skinner MD/Pulmonary Critical Care Reason for Consult*: Post CABG ICU management Requesting Physician: Dr. Monet Attending Physician: Lazaro Austin MD Primary Care Provider: Eneida Parsons MD History of Present Illness History of Present Illness Jonathan Canales is a 85 year old male Meds/Allergies Home Medications and Allergies Home Medications Medication Instructions Recorded Confirmed Last Taken Type aspirin 81 mg chewable tablet 81 mg PO DAILY 02/15/20 01/20/21 01/20/21 05:00 History cholecalciferol (vitamin D3) 25 25 mcg PO DAILY 02/15/20 01/20/21 01/20/21 05:00 History mcg (1,000 unit) capsule trazodone 50 mg tablet 50 mg PO DAILY 02/15/20 01/20/21 01/20/21 20:00 History amlodipine 5 mg tablet 10 mg PO DAILY tab 12/26/20 01/20/21 01/21/21 06:00 History atorvastatin 10 mg tablet 10 mg PO DAILY #30 tab 12/26/20 01/20/21 01/20/21 05:00 Rx carbidopa 25 mg-levodopa 100 mg 1 tab PO .COMPLEX 12/26/20 01/20/21 01/21/21 06:00 History tablet docusate sodium 100 mg capsule 100 mg PO DAILY 12/26/20 01/20/21 01/20/21 05:00 History isosorbide mononitrate 30 mg 30 mg PO DAILY #30 tab 12/26/20 01/20/21 01/19/21 10:00 Rx tablet,extended release 24 hr kpcvjxoh-fhv-dwopm acid 0.4 1 tab PO DAILY 12/26/20 01/20/21 01/20/21 05:00 History mg-lycopene 300 mcg-lutein 250 mcg tablet nitroglycerin 0.4 mg sublingual 0.4 mg SUBLINGUAL Q5M PRN #30 tab 12/26/20 01/20/21 Unknown Rx tablet Allergies Allergy/AdvReac Type Severity Reaction Status Date / Time latex Allergy Unknown unknown Verified 01/20/21 14:07 Penicillins Allergy Unknown unknown Verified 01/20/21 14:07 Current Medications Current Medications Generic Name Dose Route Start Last Admin Trade Name Freq PRN Reason Stop Dose Admin Hydrocodone Bitart/Acetaminophen 1 tab 01/27/21 14:20 01/29/21 16:20 Hydrocodone-Acetaminophen 5-325 Mg Tablet PO 1 tab Q4H PRN Administration MILD TO MODERATE PAIN Amiodarone HCl 200 mg 01/29/21 09:00 01/30/21 18:46 Amiodarone 200 Mg Tablet PO 200 mg BID BENNIE Administration Amlodipine Besylate 10 mg 01/29/21 09:00 01/30/21 09:44 Amlodipine 10 Mg Tablet PO 10 mg DAILY BENNIE Administration Aspirin 81 mg 01/28/21 09:00 01/30/21 09:44 Aspirin 81 Mg Chew Tablet PO 81 mg DAILY BENNIE Administration Atorvastatin Calcium 20 mg 01/28/21 21:00 01/29/21 20:20 Atorvastatin 40 Mg Tablet PO 20 mg BEDTIME BENNIE Administration Carbidopa/Levodopa 1 each 01/28/21 09:00 01/30/21 18:46 Carbidopa-Levodopa 25-100mg Tablet PO 1 each TID BENNIE Administration Chlorhexidine Gluconate 15 ml 01/27/21 18:00 01/30/21 18:46 Chlorhexidine Gluconate 0.12% Btl 473 Ml MUCOUS MEM 15 ml BID BENNIE Administration Fentanyl 50 mcg 01/27/21 14:20 01/30/21 04:28 Fentanyl 50 Mcg/Ml Inj 2ml IVP 50 mcg Q1H PRN Administration SEVERE PAIN Albumin Human 12.5 gm in 250 mls @ 600 mls/hr 01/27/21 14:20 01/27/21 16:00 Albumin IV Infused PRN PRN Infusion For CVP < 4 or SBP< 90 Nitroglycerin/Dextrose 50 mg in 250 mls @ 0 mls/hr 01/27/21 14:20 01/29/21 06:24 Nitroglycerin Drip IV 10 mcg/min .Q0M BENNIE 3 mls/hr Titration Protocol Per Protocol Dextrose 1,000 mls @ 30 mls/hr 01/28/21 21:00 01/30/21 05:50 D5w IV 30 mls/hr .Q24H BENNIE Administration Amiodarone HCl 900 mg/ 518 mls @ 17.267 mls/hr 01/30/21 06:45 01/30/21 06:54 Dextrose/ IV Miscellaneous IV 0.5 mg/min Supplies CONT BENNIE 17.27 mls/hr Administration 0.5 MG/MIN Isosorbide Mononitrate 30 mg 01/29/21 09:00 01/30/21 09:44 Isosorbide Mononitrate Er 30 Mg Tablet PO 30 mg DAILY BENNIE Administration Lactulose 20 gm 01/29/21 17:39 01/30/21 01:30 Lactulose Oral Liq 20 Gm/30 Ml Udc PO 20 gm Q6H PRN Administration CONSTIPATION Lanolin 1 applic 01/28/21 05:25 01/30/21 18:46 Lanolin Oint 7 Gm TOPICAL 1 applic PRN PRN Administration DRYNESS Metoprolol Tartrate 25 mg 01/28/21 09:00 01/30/21 09:45 Metoprolol Tartrate 25 Mg Tablet PO 25 mg BID@0900,2100 BENNIE Administration Morphine Sulfate 2 mg 01/27/21 14:20 01/28/21 14:27 Morphine 4 Mg/Ml Sdv 1 Ml IVP 2 mg Q1H PRN Administration BREAKTHROUGH PAIN Mupirocin 1 applic 01/27/21 18:00 01/30/21 19:17 Mupirocin Oint 22 Gm NASAL 1 applic BID BENNIE Administration Ondansetron HCl 4 mg 01/27/21 14:20 01/29/21 09:30 Ondansetron 2 Mg/Ml Sdv 2 Ml IVP 4 mg Q6H PRN Administration NAUSEA Oxycodone/Acetaminophen 1 - 2 tab 01/27/21 14:20 01/29/21 13:39 Oxycodone-Apap 5-325 Mg Tablet PO 2 tab Q6H PRN Administration MILD TO MODERATE PAIN Pantoprazole Sodium 40 mg 01/28/21 09:00 01/30/21 09:[address] 40 Mg Tablet PO 40 mg DAILY BENNIE Administration PFSH Acute PFSH: Medical History Carotid artery disease Dyslipidemia Hypertension Parkinsons Surgical History History of hernia surgery History of knee surgery History of surgery on wrist Social History Smoking and tobacco status: never smoked Household members: spouse and children Marital status: Vitals/I&O/Wt Last Vital Signs Temp 97.9 F 01/27/21 03:33 Pulse 83 01/30/21 14:00 Resp 20 H 01/30/21 04:28 BP 131/67 01/28/21 12:45 Pulse Ox 94 01/30/21 04:28 01/30/21 01/30/21 01/30/21 06:59 14:59 22:59 Intake Total 983 / 2331 50 / 50 220 / 270 Output Total 400 / 1210 300 / 300 800 / 1100 Balance 583 / 1121 -250 / -250 -580 / -830 Weight last 48 hrs Weight 175 lb Weight 173 lb Physical Exam Urinary Catheter Management^: Bar: Cath Placed During This Visit: yes Reason for Continuing Indwelling Catheter: Accurate Measurement of Urinary Output in Critically Ill Patients Urinary Catheter Date of Insertion: 01/27/21 Urinary Catheter Time of Insertion: 07:00 Procedures Arterial Line Size (Gauge): 20 Coding Level of Care Code Acute Raw Stock Machine Loader for Maria M Bonilla
[2021-01-30] MEDS: atorvastatin 40 mg Tablet 20 MG PO (20:19)
[2021-01-30 21:48] LABS: Glucose Point of Care 142 mg/dL (70-110)
[2021-01-31] VITALS (41 sets, daily range): BP systolic 84–133; BP diastolic 48–74; PULSE 63–103; RESP 16–32; TEMP 36.6–37.1; O2SAT 86–95
--- NOTE | 2021-01-31 05:38 | PC.NURSE ---
Shift Note Frequent safety and comfort rounds continue. Orders and/or nursing care completed as indicated. Patient monitored for response to intervention and treatment(s). Education provided includes fall safety, oxygen, medications with side effects, S/S to report. Patient and/or exhibit display representative verbalized understanding of education. Patient requested to transfer from chair to bed at shift change. No gtt's hanging at shift change, IV's remain patent. Voiding per urinal. Will continue to monitor.
[2021-01-31 08:31] LABS: Glucose Point of Care 130 mg/dL (70-110)
[2021-01-31] MEDS: sennosides-docusate Tablet 2 TAB PO ×2 (08:43→18:03)
[2021-01-31] MEDS: carbidopa-levodopa 25-100mg Tablet 1 EACH PO ×3 (08:44→20:25)
[2021-01-31] MEDS: isosorbide mononitrate ER 30 mg Tablet PO (08:44)
[2021-01-31] MEDS: amlodipine 10 mg Tablet PO (08:44)
[2021-01-31] MEDS: amiodarone 200 mg Tablet PO ×2 (08:44→18:03)
[2021-01-31] MEDS: pantoprazole DR 40 mg Tablet PO (08:44)
[2021-01-31] MEDS: mupirocin oint 22 gm 1 APPLIC NASAL (08:44)
[2021-01-31] MEDS: chlorhexidine gluconate 0.12% Btl 473 mL 15 ML MUCOUS MEM ×2 (08:44→18:04)
[2021-01-31] MEDS: aspirin 81 mg Chew Tablet PO (08:44)
[2021-01-31] MEDS: metoprolol tartrate 25 mg Tablet PO (08:49)
--- NOTE | 2021-01-31 09:31 | XR_ITS ---
WS: [id number] Portable AP upright chest, 01/31/2021 Clinical Data: Daily check Comparison: Portable chest, 01/30/2021 Findings: The patchy opacities have almost totally cleared. There is residual opacity in the left low er lobe and elevation of the left diaphragm. The heart size remains the same. Mediastinal tubes and r ight internal jugular venous catheter have been removed. The aortic arch shows tortuosity. Midline st ernotomy sutures and mediastinal clips are still visualized. Monitor leads are on the chest wall. The re are clips in the left upper quadrant. There is dilatation of the small bowel in the left upper dalia drant. XR/XR chest 1V portable [id number] Impression: 1. Minimal residual atelectasis and opacity over surface of left diaphragm. 2. Removal of right internal jugular venous catheter and mediastinal tubes.
[2021-01-31 11:03] LABS: Hematocrit 30.6 % (42.0-52.0); Hemoglobin 9.8 g/dL (11.7-16.6); Mean Corpuscular Hemoglobin 32.3 pg (28.0-34.0); Mean Platelet Volume 10.8 fL (7.4-10.4); Platelet Count 176 10^3/cmm (130-400); Red Blood Count 3.03 10^6/uL (4.1-5.3); Red Cell Distribution Width 12.3 % (12.1-15.1); White Blood Count 10.3 10^3/uL (4.0-10.0)
[2021-01-31 11:27] LABS: Alanine Aminotransferase 6 U/L (0-41); Alkaline Phosphatase 63 IU/L (40-130); Anion Gap 14.8 (5-19); Aspartate Amino Transferase 17 U/L (0-40); Blood Urea Nitrogen 33 mg/dL (8-23); Calcium 8.3 mg/dL (8.5-10.5); Carbon Dioxide 23 mmol/L (22-29); Chloride 104 mmol/L (98-107); Globulin 2.9 g/dL (1.3-4.6); Glucose 131 mg/dL (65-115); Magnesium 2.3 mg/dL (1.7-2.3); Osmolality Calculated 295 mOsm/kg (285-295); Potassium 3.8 mmol/L (3.5-5.1); Sodium 138 mmol/L (136-145); Total Bilirubin 0.4 mg/dL (0.15-1.2); Total Protein 5.9 g/dL (6.6-8.7)
[2021-01-31] MEDS: HYDROcodone-acetaminophen 5-325 mg Tablet 1 TAB PO (11:28)
[2021-01-31 12:09] LABS: Glucose Point of Care 143 mg/dL (70-110)
[2021-01-31 12:42] LABS: Absolute Segmented Neutrophil 8.8 10/cmm (1.6-7.1); Band Neutrophils Absolute 0.3 10^3/cmm (0.0-1.2); Lymphocytes 5 %; Monocytes Absolute 0.6 10^3/cmm (0.1-0.6); Total Cells Counted 100 (0-100)
[2021-01-31 12:43] LABS: Absolute Eosinophils 0.1 10^3/cmm (0.0-0.7); Absolute Neutrophil 9.1 10^3/cmm (1.4-6.5); Eosinophils 1 %; Macrocytosis Trace; Platelet Estimate Normal (Normal)
--- NOTE | 2021-01-31 12:45 | P.CONIM_ITS ---
Providers/Reason For Consult Consulting Physician/Specialty*: Ky Skinner MD /Pulmonary critical care Reason for Consult*: Post CABG Requesting Physician: Dr. Monet Attending Physician: Lazaro Austin MD Primary Care Provider: Eneida Parsons MD History of Present Illness History of Present Illness Jonathan Canales is an 85 year old gentleman who underwent left heart catheterization 01/23/21 as part of an evaluation for suspected coronary artery disease. He gives a 3-month history of right-sided and precordial chest discomfort with exertion which resolves with rest. He had noted this initially while performing yard work. He has denied pain at rest. He had a stress test performed at [place] which was reported as abnormal. He saw Dr. Fierro on December 26 and after review of data and examination, patient underwent LHC on 01/22/21 which showed 90% mid left main stenosis as well as 90% stenosis of the mid LAD. 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 He has preserved LV function with noted diastolic dysfunction on echocardiogram. Family history includes coronary artery disease in his daughter with prior coronary stenting. Reports allergies to penicillin and latex. On 01/27/2021 patient underwent Coronary artery bypass grafting x2 (1 artery and 1 vein) utilizing in situ left internal mammary artery to the left anterior descending artery, reverse sinus vein graft aorta to the obtuse marginal branch of circumflex artery and endoscopic saphenous vein harvesting of the left greater saphenous vein. Preoperatively patient was moved to ICU-and stayed on expected course of recovery 01/30/2021-chest tubes were taken out by Dr. Monet. As Dr. Monet is off of service-he requested critical care to continue to assist for medical management in his absence. Dr. Austin cardiology will remain attending physician. Patient seen yesterday with Dr. Monet at bedside and again today morning Patient is sitting out of bed to chair and saturating 93% on 3 L nasal cannula Remains hemodynamically stable-no evidence of infection-cardiology to remove pacing wires today Complained mild chest discomfort but otherwise overall he says he is improving Other labs and imaging reviewed Review of Systems General: Reports: 10 or more systems reviewed and unremarkable except in HPI and below Meds/Allergies Home Medications and Allergies Home Medications Medication Instructions Recorded Confirmed Last Taken Type aspirin 81 mg chewable tablet 81 mg PO DAILY 02/15/20 01/20/21 01/20/21 05:00 History cholecalciferol (vitamin D3) 25 25 mcg PO DAILY 02/15/20 01/20/21 01/20/21 05:00 History mcg (1,000 unit) capsule trazodone 50 mg tablet 50 mg PO DAILY 02/15/20 01/20/21 01/20/21 20:00 History amlodipine 5 mg tablet 10 mg PO DAILY tab 12/26/20 01/20/21 01/21/21 06:00 History atorvastatin 10 mg tablet 10 mg PO DAILY #30 tab 12/26/20 01/20/21 01/20/21 05:00 Rx carbidopa 25 mg-levodopa 100 mg 1 tab PO .COMPLEX 12/26/20 01/20/21 01/21/21 06:00 History tablet docusate sodium 100 mg capsule 100 mg PO DAILY 12/26/20 01/20/21 01/20/21 05:00 History isosorbide mononitrate 30 mg 30 mg PO DAILY #30 tab 12/26/20 01/20/21 01/19/21 10:00 Rx tablet,extended release 24 hr yomcfria-yqs-mhbpg acid 0.4 1 tab PO DAILY 12/26/20 01/20/21 01/20/21 05:00 History mg-lycopene 300 mcg-lutein 250 mcg tablet nitroglycerin 0.4 mg sublingual 0.4 mg SUBLINGUAL Q5M PRN #30 tab 12/26/20 01/20/21 Unknown Rx tablet Allergies Allergy/AdvReac Type Severity Reaction Status Date / Time latex Allergy Unknown unknown Verified 01/20/21 14:07 Penicillins Allergy Unknown unknown Verified 01/20/21 14:07 Current Medications Current Medications Generic Name Dose Route Start Last Admin Trade Name Freq PRN Reason Stop Dose Admin Hydrocodone Bitart/Acetaminophen 1 tab 01/27/21 14:20 01/31/21 11:28 Hydrocodone-Acetaminophen 5-325 Mg Tablet PO 1 tab Q4H PRN Administration MILD TO MODERATE PAIN Amiodarone HCl 200 mg 01/29/21 09:00 01/31/21 08:44 Amiodarone 200 Mg Tablet PO 200 mg BID BENNIE Administration Amlodipine Besylate 10 mg 01/29/21 09:00 01/31/21 08:44 Amlodipine 10 Mg Tablet PO 10 mg DAILY BENNIE Administration Aspirin 81 mg 01/28/21 09:00 01/31/21 08:44 Aspirin 81 Mg Chew Tablet PO 81 mg DAILY BENNIE Administration Atorvastatin Calcium 20 mg 01/28/21 21:00 01/30/21 20:19 Atorvastatin 40 Mg Tablet PO 20 mg BEDTIME BENNIE Administration Carbidopa/Levodopa 1 each 01/28/21 09:00 01/31/21 08:44 Carbidopa-Levodopa 25-100mg Tablet PO 1 each TID BENNIE Administration Chlorhexidine Gluconate 15 ml 01/27/21 18:00 01/31/21 08:44 Chlorhexidine Gluconate 0.12% Btl 473 Ml MUCOUS MEM 15 ml BID BENNIE Administration Albumin Human 12.5 gm in 250 mls @ 600 mls/hr 01/27/21 14:20 01/27/21 16:00 Albumin IV Infused PRN PRN Infusion For CVP < 4 or SBP< 90 Nitroglycerin/Dextrose 50 mg in 250 mls @ 0 mls/hr 01/27/21 14:20 01/29/21 06:24 Nitroglycerin Drip IV 10 mcg/min .Q0M BENNIE 3 mls/hr Titration Protocol Per Protocol Dextrose 1,000 mls @ 30 mls/hr 01/28/21 21:00 01/30/21 05:50 D5w IV 30 mls/hr .Q24H BENNIE Administration Amiodarone HCl 900 mg/ 518 mls @ 17.267 mls/hr 01/30/21 06:45 01/31/21 03:16 Dextrose/ IV Miscellaneous IV Not Given Supplies CONT BENNIE 0.5 MG/MIN Isosorbide Mononitrate 30 mg 01/29/21 09:00 01/31/21 08:44 Isosorbide Mononitrate Er 30 Mg Tablet PO 30 mg DAILY BENNIE Administration Lactulose 20 gm 01/29/21 17:39 01/30/21 01:30 Lactulose Oral Liq 20 Gm/30 Ml Udc PO 20 gm Q6H PRN Administration CONSTIPATION Lanolin 1 applic 01/28/21 05:25 01/30/21 18:46 Lanolin Oint 7 Gm TOPICAL 1 applic PRN PRN Administration DRYNESS Morphine Sulfate 2 mg 01/27/21 14:20 01/28/21 14:27 Morphine 4 Mg/Ml Sdv 1 Ml IVP 2 mg Q1H PRN Administration BREAKTHROUGH PAIN Mupirocin 1 applic 01/27/21 18:00 01/31/21 08:44 Mupirocin Oint 22 Gm NASAL 1 applic BID BENNIE Administration Ondansetron HCl 4 mg 01/27/21 14:20 01/29/21 09:30 Ondansetron 2 Mg/Ml Sdv 2 Ml IVP 4 mg Q6H PRN Administration NAUSEA Oxycodone/Acetaminophen 1 - 2 tab 01/27/21 14:20 01/29/21 13:39 Oxycodone-Apap 5-325 Mg Tablet PO 2 tab Q6H PRN Administration MILD TO MODERATE PAIN Pantoprazole Sodium 40 mg 01/28/21 09:00 01/31/21 08:[address] 40 Mg Tablet PO 40 mg DAILY BENNIE Administration Senna/Docusate Sodium 2 tab 01/31/21 09:00 01/31/21 08:43 Sennosides-Docusate Tablet PO 2 tab BID BENNIE Administration PFSH Acute PFSH: Medical History Carotid artery disease Dyslipidemia Hypertension Parkinsons Surgical History History of hernia surgery History of knee surgery History of surgery on wrist Social History Smoking and tobacco status: never smoked Household members: spouse and children Marital status: Vitals/I&O/Wt Last Vital Signs Temp 97.8 F 01/31/21 04:00 Pulse 103 H 01/31/21 09:35 Resp 17 01/31/21 09:25 BP 128/65 01/31/21 08:00 Pulse Ox 92 01/31/21 09:25 01/30/21 01/31/21 01/31/21 22:59 06:59 14:59 Intake Total 220 / 270 220 / 220 Output Total 950 / 1250 275 / 1525 300 / 300 Balance -730 / -980 -275 / -1255 -80 / -80 Weight last 48 hrs Weight 170 lb 12.8 oz Weight 175 lb Physical Exam Narrative: EXAM NARRATIVE: General: alert, NAD HEENT: conj clear, EOMI, PERRL, mmm, Neck: supple, no meningismus Heme: no cervical LAP Pulmonary: CTAB, no wheezing, rhonchi, crackles Cardiovascular: rrr, nl s1s2, no mrg Abdomen: soft, nt, nd, no r/g, bs+ Extremities: pulses +, no edema, no c/c : no CVA tenderness Skin: intact, no rash MSK: no back or neck pain Neurologic: grossly intact Urinary Catheter Management^: Bar: Cath Placed During This Visit: yes Reason for Continuing Indwelling Catheter: Accurate Measurement of Urinary Output in Critically Ill Patients Urinary Catheter Date of Insertion: 01/27/21 Urinary Catheter Time of Insertion: 07:00 Data Labs: Other Labs: Laboratory Results WBC 10.3 10^3/uL (4.0 -10.0) H 01/31/21 10:54 RBC 3.03 10^6/uL (4.1 -5.3) L 01/31/21 10:54 Hgb 9.8 g/dL (11.7-16 .6) L 01/31/21 10:54 Hct 30.6 % (42.0-52.0 ) L 01/31/21 10:54 MCV 101.0 fl (80-94) H 01/31/21 10:54 MCH 32.3 pg (28.0-34. 0) 01/31/21 10:54 MCHC 32.0 g/dL (30.0-3 6.0) 01/31/21 10:54 RDW 12.3 % (12.1-15.1 ) 01/31/21 10:54 Plt Count 176 10^3/cmm (130 -400) 01/31/21 10:54 MPV 10.8 fL (7.4-10.4 ) H 01/31/21 10:54 Neut % (Auto) 86.4 % 01/30/21 04:40 Lymph % (Auto) 4.5 % 01/30/21 04:40 [place] % (Auto) 7.9 % 01/30/21 04:40 Eos % (Auto) 0.2 % 01/30/21 04:40 Baso % (Auto) 0.2 % 01/30/21 04:40 Neut # (Auto) 14.47 10^3/uL (1. 8-7.7) H 01/30/21 04:40 Lymph # (Auto) 0.8 10^3/uL (0.8- 4.8) 01/30/21 04:40 [place] # (Auto) 1.3 10^3/uL (0.2- 0.9) H 01/30/21 04:40 Eos # (Auto) 0.0 10^3/uL (0.0- 0.8) 01/30/21 04:40 Baso # (Auto) 0.0 10^3/uL (0.0- 0.1) 01/30/21 04:40 Nucleated RBC % (a uto) 0 % 01/30/21 04:40 Total Counted 100 (0-100) 01/31/21 10:54 Atypical Lymphs % Not Reportable 01/31/21 10:54 Absolute Neutrophi ls 9.1 10^3/cmm (1.4 -6.5) H 01/31/21 10:54 Segmented Neutroph ils 85 % 01/31/21 10:54 Abs Segm Neuts (Ma n) 8.8 10/cmm (1.6-7 .1) H 01/31/21 10:54 Band Neutrophils 3.0 % 01/31/21 10:54 Abs Band Neuts (Ma n) 0.3 10^3/cmm (0.0 -1.2) 01/31/21 10:54 Lymphocytes (Manua l) 5 % 01/31/21 10:54 Monocytes (Manual) 6.0 % 01/31/21 10:54 Absolute Monocytes 0.6 10^3/cmm (0.1 -0.6) 01/31/21 10:54 Eosinophils (Manua l) 1 % 01/31/21 10:54 Absolute Eosinophi ls 0.1 10^3/cmm (0.0 -0.7) 01/31/21 10:54 Basophils (Manual) Not Reportable 01/31/21 10:54 Nucleated RBCs # 0.0 /100WBC 01/30/21 04:40 Platelet Estimate Normal (Normal) 01/31/21 10:54 Macrocytosis Trace 01/31/21 10:54 PT 17.50 SECONDS (12 .1-14.9) H 01/28/21 04:10 INR 1.39 (0.8-1.2) H 01/28/21 04:10 APTT 35.3 SECONDS (23. 9-36.7) 01/28/21 04:10 Specimen Type Arterial 01/27/21 22:30 Sample Site Not specified 01/27/21 22:30 ABG pH 7.41 (7.35-7.45) 01/27/21 22:30 ABG pCO2 36.6 mmHg (35-45) 01/27/21 22:30 ABG pO2 71.6 mmHg (80.0-1 00.0) L 01/27/21 22:30 ABG HCO3 23.2 mmol/L (22-2 6) 01/27/21 22:30 ABG O2 Saturation 96.2 01/27/21 22:30 ABG Base Excess -1.1 mmol/L (-2.0 -2.0) 01/27/21 22:30 Chi Test N/a 01/27/21 22:30 A-a O2 Gradient 17.0 mmHg (5-10) H 01/27/21 22:30 Hematocrit 34.9 % (42-52) L 01/27/21 22:30 Hgb O2 Saturation 94.0 % (95-100) L 01/27/21 22:30 Carboxyhemoglobin 1.1 %THgb (0.4-20 .1) 01/27/21 22:30 Methemoglobin 1.2 % (0.4-1.5) 01/27/21 22:30 Total Hemoglobin 11.4 g/dL (14-18) L 01/27/21 22:30 Sodium 142.0 mmol/L (131 -143) 01/27/21 22:30 Potassium 4.2 mmol/L (3.5-5 .0) 01/27/21 22:30 Glucose 100.0 mg/dL (70-1 15) 01/27/21 22:30 Ionized Calcium 1.2 mmol/L (1.1-1 .4) 01/27/21 22:30 O2 Delivery Device Vent 01/27/21 22:30 FiO2 35.0 % 01/27/21 22:30 Tidal Volume 0.55 01/27/21 14:18 PEEP 5.0 cmH20 01/27/21 22:30 Stranding Supervisor ID Percy 01/27/21 22:30 Sodium 138 mmol/L (136-1 45) 01/31/21 10:54 Potassium 3.8 mmol/L (3.5-5 .1) 01/31/21 10:54 Chloride 104 mmol/L (98-10 7) 01/31/21 10:54 Carbon Dioxide 23 mmol/L (22-29) 01/31/21 10:54 Anion Gap 14.8 (5-19) 01/31/21 10:54 BUN 33 mg/dL (8-23) H 01/31/21 10:54 Creatinine 1.3 mg/dL (0.7-1. 2) H 01/31/21 10:54 GFR Calculation Not Reportable 01/31/21 10:54 Glucose 131 mg/dL (65-115 ) H 01/31/21 10:54 POC Glucose 143 mg/dL (70-110 ) H 01/31/21 12:05 Fasting Glucose 90 mg/dL (74-106) 01/28/21 04:10 Calculated Osmolal ity 295 mOsm/kg (285- 295) 01/31/21 10:54 Calcium 8.3 mg/dL (8.5-10 .5) L 01/31/21 10:54 Magnesium 2.3 mg/dL (1.7-2. 3) 01/31/21 10:54 Total Bilirubin 0.4 mg/dL (0.15-1 .2) 01/31/21 10:54 Direct Bilirubin 0.20 mg/dL (0.00- 0.30) 01/26/21 06:50 AST 17 U/L (0-40) 01/31/21 10:54 ALT 6 U/L (0-41) 01/31/21 10:54 Alkaline Phosphata se 63 IU/L (40-130) 01/31/21 10:54 Total Protein 5.9 g/dL (6.6-8.7 ) L 01/31/21 10:54 Albumin 3.0 g/dL (3.5-5.2 ) L 01/31/21 10:54 Globulin 2.9 g/dL (1.3-4.6 ) 01/31/21 10:54 TSH 2.54 uIU/mL (0.27 -4.20) 01/26/21 06:50 Free T4 1.19 ng/dL (0.82- 1.77) 01/26/21 06:50 Urine Color Yellow (Yellow) 01/26/21 17:05 Urine Appearance Clear (CLEAR) 01/26/21 17:05 Urine pH 5 (5-7) 01/26/21 17:05 Ur Specific Gravit y 1.015 (1.005-1.0 30) 01/26/21 17:05 Urine Protein Neg (Negative) 01/26/21 17:05 Urine Glucose (UA) Norm (Normal) 01/26/21 17:05 Urine Ketones Negative (Negati ve) 01/26/21 17:05 Urine Blood Neg (Negative) 01/26/21 17:05 Urine Nitrate Negative (Negati ve) 01/26/21 17:05 Urine Bilirubin Neg (Negative) 01/26/21 17:05 Urine Urobilinogen Norm mg/dL (Negat tita) 01/26/21 17:05 Ur Leukocyte Jackelin ase Negative (Negati ve) 01/26/21 17:05 Blood Type O Positive 01/25/21 03:59 Rho(D) Type Positive 01/25/21 03:59 Antibody Screen Negative 01/25/21 03:59 Crossmatch See Detail 01/25/21 03:59 Impressions Chest X-Ray 01/31/21 09:31 Impression: 1. Minimal residual atelectasis and opacity over surface of left diaphragm. 2. Removal of right internal jugular venous catheter and mediastinal tubes. A&P Assessment and plan (1) Status post aorto-coronary artery bypass graft: Status: Acute (2) Fibrillation, atrial: Status: Acute Qualifiers: Atrial fibrillation type: unspecified chronic Qualified Code(s): I48.20 - Chronic atrial fibrillation, unspecified (3) Renal dysfunction: Status: Acute (4) Stenosis of left main coronary artery: Status: Acute ASSESSMENT/PLAN: Overall: POD 4 Jonathan Canales is an 85 year old gentleman with 90% mid left main stenosis as well as 90% stenosis of the mid LAD and large mildly aneurysmal RCA without significant diseas s/p CABG x2 (1 artery and 1 vein) utilizing in situ left internal mammary artery to the left anterior descending artery, reverse sinus vein graft aorta to the obtuse marginal branch of circumflex artery and endoscopic saphenous vein harvesting of the left greater saphenous vein ON 01/27/21 by . NEURO: # Acute post-op pain - [place] 1 tab q 4h prn for pain ; percocet 1-2 tab po q hr prn; Morphine 2 mg ivp q 1hr prn - Continue Physical therapy and out of bed to chair # parkinsons - Carbidopa/Levodopa 1 tab tid PULM: # Acute respiratory insufficiency post CV surgery - Extuabted and currently on 2 L nasal cannula -Incentive spirometry for volume expansion CVS: # CAD s/p CABG x [address] Monet -Hemodynamically stable - Post ACB; on ASA, statin; metoprolol 37.5 mg p.o. twice daily - optimize hemodynamics, inotropes/vasopressors as needed -Chest tubes removed yesterday, pacing wires removed today # A.fib:rate controlled: on amiodarone # HTN: Amlodipine 10 mg p.o. daily; Imdur 30 mg p.o. daily; metoprolol 37.5 p.o. twice daily RENAL: #MYRNA: Likely prerenal-held Lasix - I/O/N -270/1.5 L / -1.2 L last 24 hours; - Electrolytes within normal limits - monitor UOP for MYRNA, oliguria and serum creatinine - replete electrolytes as needed GI: #Post op Ileus - Passing gas/smear of BM - OOB & PTOT once patient is extubated and can tolerate -Bowel regimen:Senna/docusate 2 tabs p.o. twice daily and lactulose 20 mg every 6 hours as needed # Nutrition: -Encourage cardiac diet # GI PPX/GERD: PPI ENDO: #Sugars well controlled - Monitor sugars and if greater than 180-start scale coverage HEM: #- Hgb stable, no need for transfusion at this time - monitor Hgb and CT output, resuscitate/transfuse as needed # DVT prophylaxis -SCDs currently and can start subcutaneous heparin ID: No acute issues - Completed perioperative abx - trend fever and WBC count MSK: No acute issues Code Status: Full code Disposition: Transfer to floor Overall Mr. Castillo is recovering well post CABG-continues to do incentive spirometry and ambulate and work with physical therapy, tolerating diet, sugars well controlled, saturating 94% on 2 L nasal cannula, renal function stable with good urine output, passing gas, rate controlled with amiodarone, on aspirin/statin/beta-ayaz, hemodynamically stable, so far no signs of infection-will benefit from physical therapy and rehabilitation. Consult Attestations Medical Necessity Statement: CAD s/p CABG 01/27/2021-recovering well in ICU Time Spent in Patient Care: Greater than 35 minutes (>than 50% of time spent in counselling and/or direct pt care on unit) . Critical Care Time: The high probability of a clinically significant, sudden or life threatening deterioration of the patient's [respiratory, cardiac, endocrine, GI, renal] system(s) required my full and direct attention, intervention and personal management. The critical care time is as shown. This time is in addition to time spent performing any reported procedures but includes the following: [x] Data and vital sign review and interpretation [x] Patient assessment, examination and intervention [x] Documentation [x] Medication orders and management Critical Care Time (min): 45 Procedures Arterial Line Size (Gauge): 20 Coding Level of Care Code New Pt Acute Inspector Wire Products for Chg Fwd Patient Type New History Comprehensive Exam Comprehensive Medical Decision Making High Complexity Diagnoses Status post aorto-coronary artery bypass graft Z95.1 Fibrillation, atrial I48.20 Atrial fibrillation type: unspecified chronic Renal dysfunction N28.9 Stenosis of left main coronary artery I25.10 Time Spent (min) 45
[2021-01-31 12:46] LABS: Segmented Neutrophils 85 %
--- NOTE | 2021-01-31 15:00 | PM.PN ---
Subjective Subjective: Interval history: Chest tubes were out yesterday today we took all pacemaker wires. Overall he is stable and doing fine from a cardiac perspective. We will plan to move him out of the unit Medications: Reviewed: Yes Vitals/I&O/Wt Last Vital Signs Temp 97.8 F 01/31/21 04:00 Pulse 71 01/31/21 13:00 Resp 17 01/31/21 12:50 BP 128/65 01/31/21 08:00 Pulse Ox 91 01/31/21 12:50 01/31/21 01/31/21 01/31/21 06:59 14:59 22:59 Intake Total 220 / 220 Output Total 275 / 1525 300 / 300 Balance -275 / -1255 -80 / -80 Weight last 48 hrs Weight 170 lb 12.8 oz Weight 175 lb Physical Exam Narrative: EXAM NARRATIVE: GENERAL: Patient is awake sitting in the chair appear to be NECK: No jugular vein distension. HEENT: No cyanosis. No icterus. No pallor. HEART: Regular S1 and S2. No murmur, rub or gallop. LUNGS: Clear to auscultate bilaterally. ABDOMEN: Soft, nontender and nondistended. Positive bowel sounds. No guarding, rebound or tenderness. CENTRAL NERVOUS SYSTEM: Cannot assess due to sedation EXTREMITIES: Lower extremities without edema bilaterally. Const: COMMON NORMALS: alert Resp: COMMON NORMALS: clear to auscultation bilaterally AUSCULTATION: clear to auscultation bilaterally Neuro: SENSORIUM/ORIENTATION: Yes alert Urinary Catheter Management^: Bar: Cath Placed During This Visit: yes Reason for Continuing Indwelling Catheter: Accurate Measurement of Urinary Output in Critically Ill Patients Urinary Catheter Date of Insertion: 01/27/21 Urinary Catheter Time of Insertion: 07:00 Data : 01/31/21 10:54 01/31/21 10:54 A&P Assessment and plan (1) Status post aorto-coronary artery bypass graft: Appear to be stable. He will be moving out of the unit today's fourth day post CABG. Status: Acute (2) Fibrillation, atrial: In sinus rhythm continue current regimen continue amiodarone beta-ayaz no need for anticoagulation for now as it was short-lived. Will increase aspirin to 325 mg Status: Acute (3) Hypertension: Well-controlled continue medicine Status: Acute Qualifiers: Hypertension type: essential hypertension Qualified Code(s): I10 - Essential (primary) hypertension (4) Renal dysfunction: Most likely due to diuresis will hold diuretics for now. Continue holding diuretic Status: Acute Attestations Medical Necessity Statement*: Patient require continuation hospitalization for above defined care. Procedures Arterial Line Size (Gauge): 20 Coding Level of Care Code Established Pt Acute Reservations Sales Supervisor for Chg Fwd Patient Type Established History Detailed Exam Detailed Medical Decision Making Moderate Complexity Diagnoses Status post aorto-coronary artery bypass graft Z95.1 Fibrillation, atrial I48.91 Hypertension I10 Hypertension type: essential hypertension Renal dysfunction N28.9
--- NOTE | 2021-01-31 15:19 | PC.CHAP ---
Pastoral Care Encounter/Spiritual Assessment Type of Contact [xx] Declined new car get ready mechanic visit [] Patient/Family/Request visit [] Outpatient visit [] Follow-up visit [] Physician referral [] Code/Alert [xx] Routine visit [] Staff referral [] Actively dying [] Patient sleeping [] Family support [] [] Out of room [] Palliative care [] [] Receiving care in room [] Pre-surgical visit [] Trauma [xx] Long length of stay [xx] ICU visit [] Other: Relational/Emotional Strength [] Patient feels connected with others/family/visitors/staff [] Distress [] Loneliness/isolation [] Abandonment Spirituality of Patient [] Person of Christel [] Attends Church of their Christel [] Believes in Prayer [] Reads Bible or Worship materials [] There are Spiritual issues to be addressed Cook Manager Interventions [] Prayer [xx] Active listening [] Non-anxious presence [] Spiritual/emotional support [] Crisis/trauma care [] Spiritual counseling [] Bereavement support [] Provided bereavement packet [] Provided Bible/devotional materials [] Provided toy/stuffed animal, coloring book to patient or family member [] Provided Communion [] Anointing/[employer] [] Salvation [] Completed spiritual assessment [] Other: Impact on Illness or Injury [xx] Angry [] Fearful [] Anxious [] Often cries [] Exhaustion [] Unable to work [] Unable to attend amish [] Unable to walk/stand [] Unable to read [] Unable to drive [] Unable to eat/drink [] Unable to sleep [] Unable to be with family [] Patient intubated [] Other: Summary Patient seemed angry at being in hospital. He did not want prayer or new car get ready mechanic visit. Time spent with patient 2 minutes
--- NOTE | 2021-01-31 17:10 | PC.NUTR ---
Nutrition consult from 01/27: Provided basic education to pt about a heart-healthy diet post-CABG. Focused on lowering intake of saturated/trans fats and cholesterol, and increasing whole grains, fiber, fruits & vegetables, and omega-3 fats. Recommend to continue encouraging po intake of meals/fluids as tolerated to optimize nutrition.
[2021-01-31] MEDS: lanolin oint 7 gm 1 APPLIC TOPICAL (18:04)
--- NOTE | 2021-01-31 18:34 | PC.NURSE ---
Pt report called to Dennise ENCINAS. Currently waiting for the room to be cleaned.
--- NOTE | 2021-01-31 19:59 | PC.NURSE ---
Notified Lorenza Canales that patient will be transferred to room 266 [facility].
[2021-01-31] MEDS: atorvastatin 40 mg Tablet 20 MG PO (20:24)
[2021-01-31] MEDS: metoprolol tartrate 25 mg Tablet 37.5 MG PO (20:24)
[2021-01-31 20:27] LABS: Glucose Point of Care 129 mg/dL (70-110)
--- NOTE | 2021-01-31 20:50 | PC.NURSE ---
Transferred to room 266 via wheelchair. Tolerated well.
[2021-02-01] VITALS (12 sets, daily range): BP systolic 102–127; BP diastolic 56–70; PULSE 68–106; RESP 18; TEMP 36.4–37.4; O2SAT 90–94
[2021-02-01 06:26] LABS: Glucose Point of Care 122 mg/dL (70-110)
[2021-02-01] MEDS: aspirin 81 mg Chew Tablet PO (08:12)
[2021-02-01] MEDS: metoprolol tartrate 25 mg Tablet 37.5 MG PO ×2 (08:13→19:51)
[2021-02-01] MEDS: carbidopa-levodopa 25-100mg Tablet 1 EACH PO ×3 (08:13→19:53)
[2021-02-01] MEDS: pantoprazole DR 40 mg Tablet PO (08:13)
[2021-02-01] MEDS: amiodarone 200 mg Tablet PO ×2 (08:13→17:19)
[2021-02-01] MEDS: sennosides-docusate Tablet 2 TAB PO ×2 (08:13→17:19)
[2021-02-01] MEDS: isosorbide mononitrate ER 30 mg Tablet PO (08:13)
[2021-02-01] MEDS: amlodipine 10 mg Tablet PO (08:13)
[2021-02-01] MEDS: mupirocin oint 22 gm 1 APPLIC NASAL (08:16)
[2021-02-01] MEDS: chlorhexidine gluconate 0.12% Btl 473 mL 15 ML MUCOUS MEM ×2 (08:16→17:19)
--- NOTE | 2021-02-01 08:40 | PC.SOCIAL ---
IMM update IMM updated with patient. Verbalized an understanding. Copy pg 2 provided. Initialled, dated, timed, and placed in chart.
--- NOTE | 2021-02-01 09:27 | PC.NURSE ---
REPORT REPORT REC'D FROM BERNIE RN - PT IN CHAIR - ASST TO BED PER THIS NURSE AND AIDE - TAMEKA WELL - EDUCATED PT ON STERNAL PRECAUTIONS - PT VERBALIZED UNDERSTANDING - A7
--- NOTE | 2021-02-01 09:29 | PC.NURSE ---
REPORT REPORT REC'D FROM BERNIE RN - PT ASSISTED TO BED FROM CHAIR PER THIS NURSE AND KENNEL STAFF MEMBER - TAMEKA WELL - EDUCATED PT ON STERNAL PRECAUTIONS - VERBALIZED UNDERSTANDING - A&0 X4 - MID CHEST WOUND VAC INTACT WITH CONTINOUS SUCTION AT - LUNGS CTA THROUGHOUT - ABD SOFT WITH NO DISTENTION BS PRESENT - SCD PLACED TO RIGHT LEG WITH LEFT FOOT HAVING FOOT PUMP IN PLACE - WILL CONTINUE TO MONITOR
[2021-02-01] MEDS: HYDROcodone-acetaminophen 5-325 mg Tablet 1 TAB PO (10:53)
--- NOTE | 2021-02-01 11:16 | PC.NURSE ---
HYDROCODONE PAIN MEDICATION GIVEN AT 10:53 DUE TO PT COMPLAINING OF PAIN IN HIS CHEST WHEN COUGHING - VITAL SIGNS STABLE -: ENCOURAGED IS - PT DECREASING OF PRESENT TIME - ASSISTED UP TO BATHROOM X2 STAFF MEMBERS - TAMEKA COBB
[2021-02-01 11:20] LABS: Glucose Point of Care 156 mg/dL (70-110)
--- NOTE | 2021-02-01 12:09 | PC.NURSE ---
PT PHYSICAL THERAPY AT SIDE - AMBULATING PT IN CASE WITH MINIMAL ASST - RETURNED TO CHAIR - TAMEKA WELL
--- NOTE | 2021-02-01 13:24 | PC.NURSE ---
OCCUPATIONAL THERAPY OT AT PTS SIDE - STANDING AT SIDE WITH PT DOING PERSONAL GROOMING - PT TAMEKA WELL - DENIES MEDS OR NEEDS
--- NOTE | 2021-02-01 15:12 | P.PN_ITS ---
Subjective Subjective: Interval history: Patient is feeling well. He has walked PT and denies any chest pain or shortness of breath. Vitals/I&O/Wt Last Vital Signs Temp 98.5 F 02/01/21 11:56 Pulse 89 02/01/21 14:00 Resp 18 02/01/21 11:56 BP 110/60 02/01/21 11:56 Pulse Ox 91 02/01/21 11:56 02/01/21 02/01/21 02/01/21 06:59 14:59 22:59 Intake Total 360 / 360 Output Total 700 / 1700 200 / 200 Balance -700 / 158 160 / 160 Weight last 48 hrs Weight 170 lb Weight 170 lb 12.8 oz Physical Exam Narrative: EXAM NARRATIVE: GENERAL: Patient is alert, awake and oriented x3. [] NECK: No jugular vein distension. [] HEENT: No cyanosis. No icterus. No pallor. [] HEART: Regular S1 and S2. No murmur, rub or gallop. [] LUNGS: Clear to auscultate bilaterally. [] ABDOMEN: Soft, nontender and nondistended. Positive bowel sounds. No guarding, rebound or tenderness. [] CENTRAL NERVOUS SYSTEM: Grossly nonfocal. [] EXTREMITIES: Lower extremities with 1+ edema bilaterally. Pulses palpable in the lower extremities, both dorsalis pedis and posterior tibial. [] Urinary Catheter Management^: Bar: Cath Placed During This Visit: yes Reason for Continuing Indwelling Catheter: Accurate Measurement of Urinary Output in Critically Ill Patients Urinary Catheter Date of Insertion: 01/27/21 Urinary Catheter Time of Insertion: 07:00 Data : 02/01/21 15:49 02/01/21 15:49 A&P Assessment and plan (1) Status post aorto-coronary artery bypass graft: Patient is overall doing well. He was transferred out of ICU yesterday. Doing well. Continue current medications. Status: Acute (2) Fibrillation, atrial: Currently normal sinus rhythm. On aspirin 325 mg and decision is to not start anticoagulation as A. fib duration was brief. Status: Acute Qualifiers: Atrial fibrillation type: unspecified chronic Qualified Code(s): I48.20 - Chronic atrial fibrillation, unspecified (3) Hypertension: Blood pressure is well controlled. We will continue with current medications. Status: Acute Qualifiers: Hypertension type: essential hypertension Qualified Code(s): I10 - Essential (primary) hypertension (4) Renal dysfunction: Creatinine has improved today. Continue holding diuretics for now. Status: Acute Attestations Medical Necessity Statement*: Care expected to cross 2 midnights. Patient is s/p CABG and is recovering well. Procedures Arterial Line Size (Gauge): 20 Coding Level of Care Code Acute Scrap Iron Loader for g Fwd Diagnoses Status post aorto-coronary artery bypass graft Z95.1 Fibrillation, atrial I48.20 Atrial fibrillation type: unspecified chronic Hypertension I10 Hypertension type: essential hypertension Renal dysfunction N28.9
[2021-02-01 16:27] LABS: Basophils # 0.1 10^3/uL (0.0-0.1); Basophils % 0.5 %; Eosinophils # 0.1 10^3/uL (0.0-0.8); Eosinophils % 1.3 %; Hematocrit 30.8 % (42.0-52.0); Hemoglobin 9.7 g/dL (11.7-16.6); Lymphocytes # 1.2 10^3/uL (0.8-4.8); Lymphocytes % 12.6 %; Mean Corpuscular HGB Conc 31.5 g/dL (30.0-36.0); Mean Corpuscular Volume 101.7 fl (80-94); Mean Platelet Volume 11.8 fL (7.4-10.4); Monocytes % 10.6 %; Neutrophils # 7.14 10^3/uL (1.8-7.7); Neutrophils % 74.1 %; Nucleated Red Blood Cells % 0 %; Platelet Count 177 10^3/cmm (130-400); Red Blood Count 3.03 10^6/uL (4.1-5.3); Red Cell Distribution Width 12.2 % (12.1-15.1); White Blood Count 9.6 10^3/uL (4.0-10.0)
[2021-02-01 16:49] LABS: Anion Gap 11.8 (5-19); Blood Urea Nitrogen 24 mg/dL (8-23); Calcium 8.1 mg/dL (8.5-10.5); Carbon Dioxide 23 mmol/L (22-29); Chloride 102 mmol/L (98-107); Glucose 150 mg/dL (65-115); Osmolality Calculated 283 mOsm/kg (285-295); Potassium 3.8 mmol/L (3.5-5.1); Sodium 133 mmol/L (136-145)
[2021-02-01 17:27] LABS: Glucose Point of Care 134 mg/dL (70-110)
[2021-02-01 17:53] LABS: Slide Review Slide Review Perform
--- NOTE | 2021-02-01 18:38 | PC.NURSE ---
BATH CASEY, EDGARD AT SIDE TO ASST PT FROM RESTROOM TO BED - AT SIDE TO BATH PT WELL - WILL CONTINUE TO MONITOR
[2021-02-01] MEDS: atorvastatin 40 mg Tablet 20 MG PO (19:51)
[2021-02-01 20:46] LABS: Glucose Point of Care 154 mg/dL (70-110)
[2021-02-02] VITALS (8 sets, daily range): BP systolic 98–136; BP diastolic 61–77; PULSE 81–108; RESP 15–20; TEMP 36.7–37.3; O2SAT 90–94
[2021-02-02 06:33] LABS: Glucose Point of Care 137 mg/dL (70-110)
--- NOTE | 2021-02-02 08:36 | PC.NURSE ---
AM NOTE PT HAS RETURNED BACK TO BED FROM PREVIOUSLY BEING UP IN THE CHAIR - DENIES COMPLAINTS THIS AM OR PAIN - EDUCATED PT TO IS AND STERNAL PRECAUTIONS - WILL CONTINUE TO MONITOR
[2021-02-02] MEDS: amlodipine 10 mg Tablet PO (08:46)
[2021-02-02] MEDS: chlorhexidine gluconate 0.12% Btl 473 mL 15 ML MUCOUS MEM ×2 (08:46→17:01)
[2021-02-02] MEDS: aspirin 81 mg Chew Tablet PO (08:46)
[2021-02-02] MEDS: sennosides-docusate Tablet 2 TAB PO (08:46)
[2021-02-02] MEDS: amiodarone 200 mg Tablet PO ×2 (08:46→17:00)
[2021-02-02] MEDS: carbidopa-levodopa 25-100mg Tablet 1 EACH PO ×3 (08:46→20:51)
[2021-02-02] MEDS: pantoprazole DR 40 mg Tablet PO (08:46)
[2021-02-02] MEDS: isosorbide mononitrate ER 30 mg Tablet PO (08:46)
[2021-02-02] MEDS: metoprolol tartrate 25 mg Tablet 37.5 MG PO ×2 (08:51→20:52)
--- NOTE | 2021-02-02 09:45 | P.PN_ITS ---
Subjective Subjective: Interval history: Patient is overall doing well. He has been ambulating with PT and doing well. Vitals/I&O/Wt Last Vital Signs Temp 98.4 F 02/02/21 08:19 Pulse 100 02/02/21 08:19 Resp 16 02/02/21 08:19 BP 117/77 02/02/21 08:19 Pulse Ox 93 02/02/21 08:19 02/01/21 02/02/21 02/02/21 22:59 06:59 14:59 Intake Total 240 / 600 120 / 720 Output Total 400 / 600 751 / 1351 240 / 240 Balance -160 / 0 -631 / -631 -240 / -240 Weight last 48 hrs Weight 170 lb Weight 170 lb Physical Exam Narrative: EXAM NARRATIVE: GENERAL: Patient is alert, awake and oriented x3. [] NECK: No jugular vein distension. [] HEENT: No cyanosis. No icterus. No pallor. [] HEART: Regular S1 and S2. No murmur, rub or gallop. [] LUNGS: Clear to auscultate bilaterally. [] ABDOMEN: Soft, nontender and nondistended. Positive bowel sounds. No guarding, rebound or tenderness. [] CENTRAL NERVOUS SYSTEM: Grossly nonfocal. [] EXTREMITIES: Lower extremities with no edema bilaterally. Pulses palpable in the lower extremities, both dorsalis pedis and posterior tibial. [] Urinary Catheter Management^: Bar: Cath Placed During This Visit: yes Reason for Continuing Indwelling Catheter: Accurate Measurement of Urinary Output in Critically Ill Patients Urinary Catheter Date of Insertion: 01/27/21 Urinary Catheter Time of Insertion: 07:00 Data : 02/02/21 12:15 02/02/21 12:15 A&P Assessment and plan (1) Status post aorto-coronary artery bypass graft: Patient is overall doing well. Continue current medications Status: Acute (2) Fibrillation, atrial: Currently normal sinus rhythm. Heart rate transiently increased however is normal now. On aspirin 325 mg and decision is to not start anticoagulation a s A. fib duration was brief. Status: Acute Qualifiers: Atrial fibrillation type: unspecified chronic Qualified Code(s): I48.20 - Chronic atrial fibrillation, unspecified (3) Hypertension: Blood pressure is well controlled. We will continue with current medications. Status: Acute Qualifiers: Hypertension type: essential hypertension Qualified Code(s): I10 - Essential (primary) hypertension (4) Renal dysfunction: Creatinine has improved today. Continue holding diuretics for now. Status: Acute Attestations 2 Medical Necessity Statement*: Care expected to cross 2 midnights. Procedures Arterial Line Size (Gauge): 20 Coding Level of Care Code Acute Golf Cart Mechanic for Chg Fwd Diagnoses Status post aorto-coronary artery bypass graft Z95.1 Fibrillation, atrial I48.20 Atrial fibrillation type: unspecified chronic Hypertension I10 Hypertension type: essential hypertension Renal dysfunction N28.9
--- NOTE | 2021-02-02 10:10 | PC.NURSE ---
AM UPDATE PT RESTING IN BED - X2 ATTEMPTS PER SERGEY, NT TO ASSIST PT WITH BATH AND CHANGE LINENS - PT REFUSES AND STATES NOT RIGHT NOW
--- NOTE | 2021-02-02 10:14 | PC.NURSE ---
Patient refused to have linens changed stating he wanted to take a nap. Nurse notified. Patient also refused bed bath this morning. He told me had just had one yesterday. I will ask again this afternoon.
--- NOTE | 2021-02-02 10:45 | PC.NURSE ---
PT/OT PT UP TO BATHROOM - PT, OT AND THIS NURSE AT PTS SIDE - ALL ENCOURAGING PT TO AMBULATE - UP IN CASE WITH PT - PER THIS NURSE PT TO RETURN TO CHAIR - PT STATES I NEED TO TAKE A NAP AGAIN EDUCATED AND ENCOURAGED PT TO BE OUT OF BED
--- NOTE | 2021-02-02 12:00 | PC.NURSE ---
ROUNDING PT RESTING IN BED WATCHING TV - DENIES NEEDS - PREVIOUSLY BATHED PER OT - WILL CONTINUE TO MONITOR
[2021-02-02 12:31] LABS: Basophils # 0.1 10^3/uL (0.0-0.1); Basophils % 0.5 %; Eosinophils # 0.2 10^3/uL (0.0-0.8); Eosinophils % 1.7 %; Lymphocytes # 1.2 10^3/uL (0.8-4.8); Lymphocytes % 11.5 %; Mean Corpuscular HGB Conc 32.3 g/dL (30.0-36.0); Mean Corpuscular Hemoglobin 32.7 pg (28.0-34.0); Mean Corpuscular Volume 101.3 fl (80-94); Mean Platelet Volume 10.3 fL (7.4-10.4); Monocytes # 1.2 10^3/uL (0.2-0.9); Monocytes % 11.1 %; Neutrophils # 7.78 10^3/uL (1.8-7.7); Neutrophils % 74.2 %; Nucleated Red Blood Cells % 0 %; Platelet Count 219 10^3/cmm (130-400); Red Blood Count 3.06 10^6/uL (4.1-5.3); White Blood Count 10.5 10^3/uL (4.0-10.0)
[2021-02-02 13:13] LABS: Anion Gap 14.6 (5-19); Blood Urea Nitrogen 20 mg/dL (8-23); Calcium 8.6 mg/dL (8.5-10.5); Carbon Dioxide 24 mmol/L (22-29); Chloride 102 mmol/L (98-107); Glucose 123 mg/dL (65-115); Osmolality Calculated 288 mOsm/kg (285-295); Potassium 3.6 mmol/L (3.5-5.1); Sodium 137 mmol/L (136-145)
--- NOTE | 2021-02-02 14:34 | PC.NURSE ---
EDUCATION AGAIN EDUCATED PT WITH IS - WITH AT SIDE - Arley FROM PT AT SIDE WELL TO EDUCATE - BOTH VERBALIZE UNDERSTANDING
[2021-02-02 20:26] LABS: Glucose Point of Care 167 mg/dL (70-110)
[2021-02-02] MEDS: atorvastatin 40 mg Tablet 20 MG PO (20:51)
[2021-02-03] VITALS (7 sets, daily range): BP systolic 101–128; BP diastolic 56–68; PULSE 70–114; RESP 16–20; TEMP 36.6–37.2; O2SAT 90–95
[2021-02-03 06:37] LABS: Glucose Point of Care 130 mg/dL (70-110)
--- NOTE | 2021-02-03 07:18 | PM.PN ---
Subjective Subjective: Interval history: Mr. Canales is now 1 week status post CABG. I removed the wound VAC dressing today. Incision is clean, dry, and intact. Sternum is stable to palpation. Nurses, at bedside, report no concerns. H&H is stable at 10 and 31. WBC 10.5. Vitals/I&O/Wt Last Vital Signs Temp 98.6 F 02/03/21 04:00 Pulse 110 H 02/03/21 04:00 Resp 20 H 02/03/21 04:00 BP 101/66 02/03/21 04:00 Pulse Ox 92 02/03/21 04:00 02/02/21 02/03/21 02/03/21 22:59 06:59 14:59 Output Total 450 / 815 125 / 940 Balance -450 / -815 -125 / -940 Weight last 48 hrs Weight 174 lb 1.6 oz Weight 170 lb Physical Exam Chest: OTHER: The incision is clean and dry. Wound VAC dressing was removed. Incision was painted with Betadine and redressed. Drain sites are well approximated. Resp: COMMON NORMALS: normal respiratory effort OTHER: Improving inspiratory effort though still needs pulmonary toilet routinely. Improving use of incentive spirometry. Cardio: COMMON NORMALS: regular rate, regular rhythm, S1 normal heart sound present and No murmurs present (Cardio) RATE: regular rate RHYTHM: regular rhythm HEART SOUNDS: S1 normal heart sound present Extremity: OTHER: Postop edema has resolved. Urinary Catheter Management^: Bar: Cath Placed During This Visit: yes Reason for Continuing Indwelling Catheter: Accurate Measurement of Urinary Output in Critically Ill Patients Urinary Catheter Date of Insertion: 01/27/21 Urinary Catheter Time of Insertion: 07:00 Data : 02/02/21 12:15 02/02/21 12:15 A&P Assessment and plan (1) Status post aorto-coronary artery bypass graft: 1 week status post CABG. Greatly appreciate the expertise and assistance of our cardiology and pulmonary colleagues. I believe Mr. Canales should be evaluated to determine whether he would benefit from skilled care on outpatient basis. From a surgical standpoint I think it is reasonable to consider proceeding with discharge planning and appropriate outpatient care. Status: Acute Attestations Medical Necessity Statement*: 1 week status post CABG with postop A. fib resolved Time Spent in Patient Care: 16 - 35 minutes Procedures Arterial Line Size (Gauge): 20 Coding Level of Care Code Acute Clinical Specialist Medical Device for Chg Fwd Diagnoses Status post aorto-coronary artery bypass graft Z95.1
[2021-02-03] MEDS: isosorbide mononitrate ER 30 mg Tablet PO (09:56)
[2021-02-03] MEDS: carbidopa-levodopa 25-100mg Tablet 1 EACH PO ×2 (09:57→16:14)
[2021-02-03] MEDS: amiodarone 200 mg Tablet PO (09:57)
[2021-02-03] MEDS: pantoprazole DR 40 mg Tablet PO (09:57)
[2021-02-03] MEDS: chlorhexidine gluconate 0.12% Btl 473 mL 15 ML MUCOUS MEM (09:57)
[2021-02-03] MEDS: sennosides-docusate Tablet 2 TAB PO (09:57)
[2021-02-03] MEDS: amlodipine 10 mg Tablet PO (09:57)
[2021-02-03] MEDS: aspirin 81 mg Chew Tablet PO (09:57)
[2021-02-03] MEDS: mupirocin oint 22 gm 1 APPLIC NASAL (09:58)
[2021-02-03] MEDS: metoprolol tartrate 25 mg Tablet 37.5 MG PO (10:00)
--- NOTE | 2021-02-03 11:17 | PC.SOCIAL ---
IMM Updated Updated pt on Pg 2 IMM. No questions voiced. Provided pt a copy. Initialed, dated, & timed copy in chart.
[2021-02-03 12:03] LABS: Glucose Point of Care 139 mg/dL (70-110)
--- NOTE | 2021-02-03 14:43 | PM.PN ---
Subjective Subjective: Interval history: Stable doing fine from a cardiac perspective Medications: Reviewed: Yes Vitals/I&O/Wt Last Vital Signs Temp 97.9 F 02/03/21 11:55 Pulse 70 02/03/21 11:55 Resp 17 02/03/21 11:55 BP 109/56 02/03/21 11:55 Pulse Ox 92 02/03/21 11:55 02/02/21 02/03/21 02/03/21 22:59 06:59 14:59 Intake Total 240 / 240 Output Total 450 / 815 125 / 940 150 / 150 Balance -450 / -815 -125 / -940 90 / 90 Weight last 48 hrs Weight 174 lb 1.6 oz Weight 170 lb Physical Exam Narrative: EXAM NARRATIVE: GENERAL: Patient is awake sitting in the chair appear to be NECK: No jugular vein distension. HEENT: No cyanosis. No icterus. No pallor. HEART: Regular S1 and S2. No murmur, rub or gallop. LUNGS: Clear to auscultate bilaterally. ABDOMEN: Soft, nontender and nondistended. Positive bowel sounds. No guarding, rebound or tenderness. CENTRAL NERVOUS SYSTEM: Cannot assess due to sedation EXTREMITIES: Lower extremities without edema bilaterally. Const: COMMON NORMALS: alert Resp: COMMON NORMALS: clear to auscultation bilaterally AUSCULTATION: clear to auscultation bilaterally Neuro: SENSORIUM/ORIENTATION: Yes alert Urinary Catheter Management^: Bar: Cath Placed During This Visit: yes Reason for Continuing Indwelling Catheter: Accurate Measurement of Urinary Output in Critically Ill Patients Urinary Catheter Date of Insertion: 01/27/21 Urinary Catheter Time of Insertion: 07:00 Data : 02/02/21 12:15 02/02/21 12:15 A&P Assessment and plan (1) Status post aorto-coronary artery bypass graft: Appear to be stable slowly progressing continue as per plan and cardiac team Status: Resolved Attestations Medical Necessity Statement*: Patient require continuation for above defined care. Procedures Arterial Line Size (Gauge): 20 Coding Level of Care Code Established Pt Acute Ocular Care Technologist for Chg Fwd Patient Type Established History Detailed Exam Detailed Medical Decision Making Moderate Complexity Diagnoses Status post aorto-coronary artery bypass graft Z95.1
--- NOTE | 2021-02-03 15:13 | PM.DCS ---
Discharge Providers Date of Admission: 01/27/21 07:09 Date of Discharge: February 03, 2021 Attending Provider at Admission: Lazaro Austin MD Attending Provider at Discharge: Lazaro Austin MD Primary Care Provider: Eneida Parsons MD Diagnoses at Discharge Discharge Diagnosis (1) Status post aorto-coronary artery bypass graft: Status: Acute Reason for Visit Reason for Visit: 15461 r94.39 abnormal cardiovascular function Hospital Course Hospital Course Mr. Canales is a pleasant 85-year-old gentleman who underwent left heart catheterization on January 21 as part of a continued evaluation for suspected coronary artery disease. He had a greater than 3-month history of right-sided precordial chest discomfort with exertion which resolved with rest. Stress testing performed in [place], [place] was reported abnormal not reviewed by Dr. Fierro, left heart catheterization was recommended. This was performed by Dr. Austin and revealed a 90% mid left main stenosis as well as 90% stenosis of the mid LAD. 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 He also had preserved LV function with noted diastolic dysfunction. After consultation, he wished to proceed with plans for surgery. Due to his left main stenosis he remained well his evaluation preoperatively was completed. He subsequently underwent CABG x2 on January 27 which included in situ left internal mammary artery to left anterior descending artery reverse vein graft to the obtuse marginal branch of the circumflex artery. Postoperatively, he made slow but steady progress. He did have a brief period of atrial fibrillation with ventricular response controlled with amiodarone and spontaneous conversion back to sinus rhythm. He underwent aggressive diuresis as well as postoperative recovery including respiratory therapy and physical therapy consultations. He continued to progress well and subsequently pacing wires and mediastinal drains were discontinued. [facility] was [facility] he continues to do well. His operative wound VAC dressing was removed and his sternum is stable with an incision intact and dry. He is tolerating a diet well. Bowel function has returned to normal. Amiodarone is now at 1 single 200 mg dose per day. Physical therapy believes he has received maximal benefit from inpatient care. Dr. Austin is pleased from a cardiology standpoint and feels the patient can be safely discharged with home health services. This has been arranged. He will therefore be discharged home today with [facility] home health services. Discharge instructions were reviewed with him, home health services, and with his . He'll be scheduled follow-up in my service in 1 week. At the time of discharge, he is in stable condition. Physical Exam Chest: COMMONS NORMALS: normal inspection of the chest and normal palpation of entire chest wall CHEST: Yes Symmetrical chest wall rise OTHER: Sternal incision is clean, dry, and intact. Sternum is stable to palpation. Drain sites are well approximated. Resp: COMMON NORMALS: normal respiratory effort and clear to auscultation bilaterally AUSCULTATION: clear to auscultation bilaterally Cardio: COMMON NORMALS: regular rate, regular rhythm, S1 normal heart sound present, No clicks present (Cardio), No murmurs present (Cardio) and No rub (Cardio) RATE: regular rate RHYTHM: regular rhythm HEART SOUNDS: S1 normal heart sound present GI: COMMON NORMALS: Normal to inspection, nondistended, normoactive bowel sounds present Extremity: COMMON NORMALS: no clubbing, cyanosis or edema Urinary Catheter Management^: Bar: Cath Placed During This Visit: yes Reason for Continuing Indwelling Catheter: Accurate Measurement of Urinary Output in Critically Ill Patients Urinary Catheter Date of Insertion: 01/27/21 Urinary Catheter Time of Insertion: 07:00 Discharge Data Data Completed and Pending: Completed Studies During Hospitalization Category Date Time Status RISK ADJUSTMENT SPECIALIST request for service Routin e Exams 01/21/21 09:00 Completed CXRP [XR chest 1V portable [id number]] R outine Exams 01/31/21 09:31 Completed XR chest 1V cookie ble [id number] Routine Exams 01/27/21 09:01 Completed XR chest 1V cookie ble [id number] Routine Exams 01/28/21 06:00 Completed XR chest 1V cookie ble [id number] Routine Exams 01/29/21 06:00 Completed XR chest 1V cookie ble [id number] Routine Exams 01/30/21 06:00 Completed XR chest 1V cookie ble [id number] Stat Exams 01/27/21 16:40 Completed XR chest 2V* 7104 6 Routine Exams 01/23/21 08:00 [place] [address] Routi ne Ultrasound 01/23/21 Completed CV. echo complete * [id number] Routine Ultrasound 01/21/21 11:54 Completed Labs from last 24 hours 02/03/21 02/03/21 02/02/21 11:58 06:28 20:17 POC Glucose 139 H 130 H 167 H Vitals: Last Vital Signs Temp 98.5 F 02/03/21 15:06 Pulse 96 02/03/21 15:06 Resp 16 02/03/21 15:06 BP 107/63 02/03/21 15:06 Pulse Ox 90 02/03/21 15:06 Discharge Plan Discharge Patient Disposition: Home Health Service Condition: Stable Prescriptions: New Pacerone 200 mg Tablet 200 mg PO DAILY Qty: 60 RF: 2 metoprolol tartrate 25 mg Tablet 37.5 mg PO BID@0900,2100 Qty: 60 RF: 3 hydrocodone-acetaminophen 5-325 mg tablet 1 tab PO Q6H PRN (Reason: pain) Qty: 25 RF: 0 Continued cholecalciferol (vitamin D3) 25 mcg (1,000 unit) capsule 25 mcg PO DAILY RF: 0 trazodone 50 mg tablet 50 mg PO DAILY RF: 0 aspirin [Cailin Chewable Aspirin] 81 mg tablet,chewable 81 mg PO DAILY RF: 0 carbidopa-levodopa 25-100 mg tablet 1 tab PO .COMPLEX RF: 0 docusate sodium 100 mg capsule 100 mg PO DAILY RF: 0 Complete MV Adult 50 Plus 0.4-300-250 mg-mcg-mcg tablet 1 tab PO DAILY RF: 0 amlodipine 5 mg tablet 10 mg PO DAILY RF: 0 nitroglycerin 0.4 mg tablet, sublingual 0.4 mg sublingual Q5M PRN (Reason: chest pain) Qty: 30 RF: 3 Changed atorvastatin 10 mg tablet 40 mg PO DAILY Qty: 30 RF: 2 Discontinued isosorbide mononitrate 30 mg tablet extended release 24 hr 30 mg PO DAILY Qty: 30 RF: 3 Discharge Orders: Discharge Order (Routine); Ordered 02/03/21 Ordered By: Lazaro Austin Referrals: [facility] [Outside] Kobi Monet MD [Physician] - 1 week Discharge Diet: Cardiac Discharge Activity: Increase activity as tolerated and Limit activity as instructed Patient Instructions: Metoprolol (By mouth), Amiodarone (By mouth), Left Heart Catheterization (DC), Right Heart Catheterization (DC), Chest Pain Stoplight, Opioid Safety Activity Restrictions/Additional Instructions: Please follow-up with Dr. Monet in 7 days, please follow-up with Dr. Austin in 7 to 10 days. Please follow surgery instruction. Please keep a record of blood pressure and pulse twice a day and send it to Dr. Austin's office after 1 week. If you have any question or concern please call Dr. Austin's office. May begin daily showers tomorrow. No lifting or pulling with upper extremities greater than 5 pounds for the next 6 weeks Use incentive spirometer frequently. Use heart pillow when coughing to provide support to sternum. Report any redness, swelling, drainage, from incision. Report any increasing pain or feeling of motion of sternum. They prefer to sleep in recliner or with multiple pillows for elevation of the chest. No swimming or tub baths x3 weeks, however, may shower daily and dry incisions completely afterwards. They leave the incision open if desired, or may cover with bandage to protect from irritation from clothing. Discharge Attestations Time Spent in Discharge Care*: less than 30 min Specific Discharge Activities: educating patient, discussing with case loader operator/social workers/dc planners, documenting/other paperwork and evaluating patient/reviewing data Status at Discharge: Cognitive status at discharge: cognitively intact, Behavioral status at discharge: cooperative, Functional status at discharge: independent ambulation Overall status at discharge: patient is progressing back to baseline Quality Metrics Clinical Quality Measures During this hospital stay, did patient experience: None Coding Level of Care Code Acute [facility] note Diagnoses Status post aorto-coronary artery bypass graft Z95.1
--- NOTE | 2021-02-05 08:23 | PC.SOCIAL ---
discharge follow up call made, spoke with patient and . patient reports he is feeling some better. spoke with , patient picked up all medications from the pharmacy and is taking as directed. is aware of follow up appointment with Dr. Monet, at that appointment they will get a follow up appointment scheduled with Dr. Austin. Home health made a visit and is getting times set up for visits. Patient is aware of lifting restriction. He is recording daily blood pressures. No questions or concerns voiced.
--- NOTE | 2021-02-27 12:01 | PM.PN ---
Subjective Subjective: Interval history: This is my note dated 01/24/2021 which I administered while taking care of patient. Patient denies any chest pain he is awaiting surgery Medications: Reviewed: Yes Vitals/I&O/Wt Last Vital Signs Temp 98.5 F 02/03/21 15:06 Pulse 96 02/03/21 15:06 Resp 16 02/03/21 15:06 BP 107/63 02/03/21 15:06 Pulse Ox 90 02/03/21 15:06 Physical Exam Narrative: EXAM NARRATIVE: GENERAL: Patient is awake sitting in the chair appear to be NECK: No jugular vein distension. HEENT: No cyanosis. No icterus. No pallor. HEART: Regular S1 and S2. No murmur, rub or gallop. LUNGS: Clear to auscultate bilaterally. ABDOMEN: Soft, nontender and nondistended. Positive bowel sounds. No guarding, rebound or tenderness. CENTRAL NERVOUS SYSTEM: Cannot assess due to sedation EXTREMITIES: Lower extremities without edema bilaterally. Const: COMMON NORMALS: alert Resp: COMMON NORMALS: clear to auscultation bilaterally AUSCULTATION: clear to auscultation bilaterally Neuro: SENSORIUM/ORIENTATION: Yes alert Urinary Catheter Management^: Bar: Cath Placed During This Visit: yes Reason for Continuing Indwelling Catheter: Accurate Measurement of Urinary Output in Critically Ill Patients Urinary Catheter Date of Insertion: 01/27/21 Urinary Catheter Time of Insertion: 07:00 Data : 02/02/21 12:15 02/02/21 12:15 A&P Assessment and plan (1) CAD (coronary artery disease): Patient has significant multivessel disease requiring CABG. Dr. Monet is out of town he will be back by Wednesday since patient has off-and-on chest pressures therefore he was not discharged. We will continue to watch him on telemetry monitoring we will optimize his medicine most likely early next week he will be going for coronary artery bypass surgery. Status: Acute Qualifiers: Coronary Disease-Associated Artery/Lesion type: [place] artery [place] vs. transplanted heart: [place] heart Associated angina: with stable angina Qualified Code(s): I25.118 - Atherosclerotic heart disease of [place] coronary artery with other forms of angina pectoris Attestations Medical Necessity Statement*: Patient require continuation hospitalization for bypass surgery over next 2 to 3 days Procedures Arterial Line Size (Gauge): 20 Coding Level of Care Code Established Pt Acute Parasitology Teacher for Chg Fwd Patient Type Established History Detailed Exam Detailed Medical Decision Making Moderate Complexity Diagnoses CAD (coronary artery disease) I25.118 Coronary Disease-Associated Artery/Lesion type: [place] artery [place] vs. transplanted heart: [place] heart Associated angina: with stable angina
== END 2021-02-03 17:05 | disposition home health service (06) | DRG 234 ==
LOC: ICU 01-28 06:55 → MEDSURG 02-02 12:38 → ICU 02-06 08:18 → CCL 02-06 08:19 → MEDSURG 02-06 08:19
PROVIDERS: Internal Medicine; Internal Medicine Pulmonary Disease; Thoracic Surgery (Cardiothoracic Vascular Surgery); Admitting Provider Internal Medicine Cardiovascular Disease; PCP Family Medicine; Visit Provider Internal Medicine Cardiovascular Disease
PROC: 02100Z9 Bypass Coronary Artery, One Artery from Left Internal Mammary, Open Approach (ICD-10-PCS; principal; 2021-01-27 07:00)
DX: I25.10 Atherosclerotic heart disease of native coronary artery without angina pectoris (principal); K56.7 Ileus, unspecified; N17.9 Acute kidney failure, unspecified; I10 Essential (primary) hypertension; E78.5 Hyperlipidemia, unspecified; G20 Parkinson's disease; M81.0 Age-related osteoporosis without current pathological fracture; I48.91 Unspecified atrial fibrillation; I44.0 Atrioventricular block, first degree; Z79.82 Long term (current) use of aspirin
CPT/HCPCS: 36415; 36416; 71045; 71046; 80048; 80051; 80053; 80076; 81003; 82330; 82803; 82805; 82947; 82962; 83735; 84439; 84443; 85007; 85025; 85027; 85347; 85610; 85730; 86850; 86900; 86920; 93005; 93306; 93452; 93970; 93971; 94002; 94640; 94799; 96372; 97110; 97116; 97162; 97163; 97165; 97167; 97530; 97535; C1769; C1887; C1894; J0282; J0461; J1250; J1644; J1650; J1940; J2001; J2150; J2250; J2270; J2370; J2405; J2440; J2704; J2720; J3010; J3370; J3475; J3480; J3490; J7030; J7050; J7060; P9041; P9047; Q0163; Q9967

== ENCOUNTER 2021-04-23 06:00 | Outpatient (RCR) | payer OTHER, SELFPAY | END 2021-05-09 23:59 | disposition home or self-care (01) | LOC: SPT 06:00 | PROVIDERS: PCP Family Medicine; Referring Provider Family Medicine; Visit Provider Family Medicine | DX: G20 Parkinson's disease (principal) | CPT/HCPCS: 97162 ==

== ENCOUNTER 2021-05-10 06:00 | Outpatient (RCR) | payer OTHER, SELFPAY | END 2021-06-09 23:59 | disposition home or self-care (01) | LOC: SPT 06:00 | PROVIDERS: PCP Family Medicine; Referring Provider Family Medicine; Visit Provider Family Medicine | DX: G20 Parkinson's disease (principal) | CPT/HCPCS: 97110; 97112 ==

== ENCOUNTER 2021-06-10 06:00 | Outpatient (RCR) | payer OTHER, SELFPAY | END 2021-07-07 23:59 | disposition home or self-care (01) | LOC: SPT 06:00 | PROVIDERS: PCP Family Medicine; Referring Provider Family Medicine; Visit Provider Family Medicine | DX: G20 Parkinson's disease (principal) | CPT/HCPCS: 97110 ==

== ENCOUNTER → 2021-07-24 13:51 | Outpatient (BNVA) | payer OTHER, SELFPAY | PROVIDERS: PCP Family Medicine; Visit Provider Internal Medicine Cardiovascular Disease | DX: I25.10 Atherosclerotic heart disease of native coronary artery without angina pectoris (principal); Z95.1 Presence of aortocoronary bypass graft; I10 Essential (primary) hypertension | CPT/HCPCS: 99214 ==

== ENCOUNTER → 2022-01-26 14:01 | Outpatient (BNVA) | payer OTHER, SELFPAY | PROVIDERS: PCP Family Medicine; Visit Provider Internal Medicine Cardiovascular Disease | DX: I25.10 Atherosclerotic heart disease of native coronary artery without angina pectoris (principal); Z95.1 Presence of aortocoronary bypass graft; I10 Essential (primary) hypertension; I44.0 Atrioventricular block, first degree; E78.5 Hyperlipidemia, unspecified; G20 Parkinson's disease | CPT/HCPCS: 99214 ==

== ENCOUNTER → 2022-04-07 14:37 | Outpatient (BNVA) | payer OTHER, SELFPAY | PROVIDERS: PCP Family Medicine; Visit Provider Nurse Practitioner Family | DX: I25.118 Atherosclerotic heart disease of native coronary artery with other forms of angina pectoris (principal); I44.0 Atrioventricular block, first degree; I10 Essential (primary) hypertension; Z95.1 Presence of aortocoronary bypass graft | CPT/HCPCS: 93005; 99214 ==

== ENCOUNTER → 2022-04-27 10:02 | Outpatient (BNVA) | payer OTHER, SELFPAY | PROVIDERS: PCP Family Medicine; Referring Provider Family Medicine; Visit Provider Specialist | DX: M53.3 Sacrococcygeal disorders, not elsewhere classified (principal); M25.551 Pain in right hip; G89.29 Other chronic pain | CPT/HCPCS: 73502; 99213 ==

== ENCOUNTER 2022-05-07 14:29 | Outpatient (RCR) | payer OTHER, SELFPAY | END 2022-05-09 23:59 | disposition home or self-care (01) | LOC: SPT 14:29 | PROVIDERS: PCP Family Medicine; Visit Provider Specialist | DX: M54.50 Low back pain, unspecified (principal) | CPT/HCPCS: 97161 ==

== ENCOUNTER 2022-05-10 06:00 | Outpatient (RCR) | payer OTHER, SELFPAY | END 2022-06-09 23:59 | disposition home or self-care (01) | LOC: SPT 06:00 | PROVIDERS: PCP Family Medicine; Visit Provider Specialist | DX: M54.50 Low back pain, unspecified (principal); M25.551 Pain in right hip | CPT/HCPCS: 97110 ==

== ENCOUNTER → 2022-09-04 08:39 | Outpatient (BNVA) | payer OTHER, SELFPAY | PROVIDERS: PCP Family Medicine; Visit Provider Internal Medicine Cardiovascular Disease | DX: I25.118 Atherosclerotic heart disease of native coronary artery with other forms of angina pectoris (principal); Z95.1 Presence of aortocoronary bypass graft; G20 Parkinson's disease; E78.5 Hyperlipidemia, unspecified; I77.9 Disorder of arteries and arterioles, unspecified; I10 Essential (primary) hypertension; Z79.82 Long term (current) use of aspirin | CPT/HCPCS: 99213 ==

== ENCOUNTER → 2023-02-03 07:16 | Outpatient (BNVA) | payer OTHER, SELFPAY | PROVIDERS: PCP Family Medicine; Visit Provider Podiatrist Foot & Ankle Surgery | DX: L60.3 Nail dystrophy; S90.222A Contusion of left lesser toe(s) with damage to nail, initial encounter; X58.XXXA Exposure to other specified factors, initial encounter | CPT/HCPCS: 73630; 99213 ==

== ENCOUNTER → 2023-02-16 12:27 | Outpatient (BNVA) | payer OTHER, SELFPAY | PROVIDERS: PCP Family Medicine; Visit Provider Internal Medicine Cardiovascular Disease | DX: I25.118 Atherosclerotic heart disease of native coronary artery with other forms of angina pectoris (principal); Z95.1 Presence of aortocoronary bypass graft; E78.5 Hyperlipidemia, unspecified; I77.9 Disorder of arteries and arterioles, unspecified; I10 Essential (primary) hypertension | CPT/HCPCS: 99213 ==

== ENCOUNTER → 2023-09-01 10:52 | Outpatient (BNVA) | payer OTHER, SELFPAY | PROVIDERS: PCP Family Medicine; Visit Provider Internal Medicine Cardiovascular Disease | DX: I10 Essential (primary) hypertension (principal); Z95.1 Presence of aortocoronary bypass graft; I25.118 Atherosclerotic heart disease of native coronary artery with other forms of angina pectoris; I77.9 Disorder of arteries and arterioles, unspecified; E78.5 Hyperlipidemia, unspecified; I44.0 Atrioventricular block, first degree; I25.9 Chronic ischemic heart disease, unspecified | CPT/HCPCS: 99213 ==

== ENCOUNTER 2023-11-03 08:49 | Outpatient (CLI) | payer OTHER, SELFPAY ==
--- NOTE | 2023-11-03 | ECG_ITS ---
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 Interpretive Statements NAME OF STUDY: LEXISCAN SESTAMIBI STRESS TEST INDICATION: Chest Pain RESULT TO DR ORTIZ PROCEDURE: At the baseline, the EKG revealed normal sinus rhythm with right bundle branch block pattern. Some nonspecific ST changes. The baseline heart was 86 bpm with a blood pressue of 121/77 mm of Hg Lexiscan was infused over a period of 20 seconds. A total of 0.4 milligrams of Lexiscan was infused. The stress phase was continued for a total of 5 minutes. Heart rate at the end of the stress phase was 91 bpm with a blood pressure 178/63 mm of Hg. The EKG at the peak infusion revealed no significant changes. Sestamibi was injected 20 seconds after the Lexiscan infusion. Heart rate at the end of the recovery phase was 95 bpm with a blood pressure of 127/73 mm of Hg. CONCLUSION: 1. No significant EKG changes with the LexiScan infusion 2. No LexiScan induced chest pain or cardiac arrhythmia 3. Normal blood pressure and heart rate response 4. Sestamibi/sestamibi perfusion scan pending; see separate report. Electronically Signed On 11-06-2023 14:37:40 CDT by Daron Onofre M.D. [id number]
[2023-11-03 09:21] VITALS: BMI 24.6
--- NOTE | 2023-11-03 09:25 | NMCV_ITS ---
NM kyleigh perf SPECT r/s* [id number] Jonathan Canales Age: 88 Gender: M : 1935 Exam Date: 11/03/2023 10:09 Ordering Phys: Kristofer Luke MD ([email or web address]) Technologist: ANILA Leiva Exam Location: [facility] Indications: CP STRESS TEST Please see separate stress test report in [facility] for full findings IMAGE PROTOCOL Rest/Stress 1 Lexiscan Day Radiopharmaceutical Dose (mCi) Administration Site Administered by Rest: Tc-99m 10.8 IV ANILA Leiva Sestamibi Stress:Tc-99m 32.8 IV ANILA Leiva Sestamibi Rest: 03-Nov-2023 60 Discovery 630 Stress: 03-Nov-2023 45 Discovery 630 0.4mg Lexiscan. Images obtained in supine and prone position. SPECT RESULTS Technical Quality: Good Raw Data Analysis: Normal Image Corrections: No attenuation or motion correction applied Summed Stress Score: 0 Summed Rest Score: 2 Summed Difference Score: 0 PERFUSION FINDINGS Fairly uniform myocardial tracer uptake with no significant perfusion abnormalities FUNCTIONAL RESULTS (calculated via Gated SPECT) Stress Image LV EF (%): 55 Stress EDV (mL):84 TID: 1.27 Stress ESV (mL):38 FUNCTIONAL FINDINGS: Segmental wall motion analysis revealing no gross wall motion abnormalities IMPRESSIONS 1. Myocardial perfusion imaging revealing uniform myocardial tracer uptake with no significant perfusion abnormalities 2. Normal LV ejection fraction of 55%. 3. LV wall motion analysis revealing no gross wall motion abnormalities. 4. Normal LV volume 5. Elevated transient ischemic dilatation ratio 1.27, may suggest endocardial ischemia. However the positive predictive value of this finding is limited. Clinical correlation recommended. No similar previous studies are available for comparison Dr Daron Onofre MD [facility] (Electronically Signed) Final Date: 03 November 2023 14:04 S
[2023-11-03] MEDS: regadenoson 0.4 Mg/5 ml Syringe 0.400000000000000022 MG IVP (10:53)
[2023-11-03 11:12] VITALS: BP 117/83; PULSE 83
== END 2023-11-03 08:50 | disposition home or self-care (01) ==
PROVIDERS: PCP Family Medicine; Visit Provider Internal Medicine Cardiovascular Disease
DX: I10 Essential (primary) hypertension (principal); Z95.1 Presence of aortocoronary bypass graft; I25.118 Atherosclerotic heart disease of native coronary artery with other forms of angina pectoris; R94.39 Abnormal result of other cardiovascular function study
CPT/HCPCS: 36415; 78452; 93017; 96374; A9500; J2785

== ENCOUNTER → 2024-03-01 10:18 | Outpatient (BNVA) | payer OTHER, SELFPAY | PROVIDERS: PCP Family Medicine; Visit Provider Nurse Practitioner Family | DX: I25.10 Atherosclerotic heart disease of native coronary artery without angina pectoris (principal); Z95.1 Presence of aortocoronary bypass graft; I10 Essential (primary) hypertension; E78.5 Hyperlipidemia, unspecified | CPT/HCPCS: 99214 ==

== ENCOUNTER → 2024-09-04 13:53 | Outpatient (BNVA) | payer OTHER, SELFPAY | PROVIDERS: PCP Family Medicine; Visit Provider Internal Medicine Cardiovascular Disease | DX: I25.118 Atherosclerotic heart disease of native coronary artery with other forms of angina pectoris (principal); I10 Essential (primary) hypertension; E78.5 Hyperlipidemia, unspecified | CPT/HCPCS: 99214 ==